=== PATIENT | male | born 1945 | race Caucasian/White ===

== ENCOUNTER 2021-12-12 16:09 | Inpatient (IN) | payer BC, MEDICARE ==
[~2021-12-12] VITALS: Ht 180.3 cm; Wt 68.1 kg
[2021-12-12] MEDS ORDERED: guaiFENesin/CODEINE (ROBITUSSIN AC) 10ML UDC PO PRN (21:45)
[2021-12-12] MEDS ORDERED: ACETAMINOPHEN 325 MG TABLET PO PRN (21:45)
[2021-12-12] MEDS ORDERED: ALPRAZolam 0.25 MG (XANAX) TAB PO PRN (21:45)
[2021-12-12] MEDS ORDERED: LOPERAMIDE 2 MG (IMODIUM) TABLET PO PRN (21:45)
[2021-12-12] MEDS ORDERED: diphenhydrAMINE 25 MG TAB (BENADRYL) PO PRN (21:45)
[2021-12-12] MEDS ORDERED: BISACODYL 10 MG SUPP (DULCOLAX) PR PRN (21:45)
[2021-12-12] MEDS ORDERED: DOCUSATE SODIUM 100 MG (COLACE) CAP PO PRN (21:45)
[2021-12-12] MEDS ORDERED: FLEET ENEMA ADULT 1 EA BTL PR PRN (21:45)
[2021-12-12] MEDS ORDERED: LACTULOSE SYRUP 10GM/15ML (ENULOSE) 30ML UDC PO PRN (21:45)
[2021-12-12] MEDS ORDERED: CALCIUM CARBONATE 500 MG (TUMS) TAB.CHEW PO PRN (21:45)
[2021-12-12] MEDS ORDERED: ONDANSETRON 4 MG (ZOFRAN) ORAL DISSOLVE TAB PO PRN (21:45)
[2021-12-12] MEDS ORDERED: MELATONIN 3 MG TABLET PO PRN (21:45)
[2021-12-13] MEDS ORDERED: polyethylene glycoL POWDER 17 GM (MIRALAX) PACK PO SCH (09:00)
[2021-12-13] MEDS ORDERED: DOCUSATE SODIUM 100 MG (COLACE) CAP PO SCH (09:00)
[2021-12-13] MEDS ORDERED: SENNA W/DOCUSATE (SENOKOT S) TABLET PO SCH (09:00)
[2021-12-18] MEDS ORDERED: POLY17PO6 PO (10:23)
[2021-12-18] MEDS ORDERED: DOCU100C37 PEG (10:23)
[2021-12-18] MEDS ORDERED: ACET650T8 PO (10:23)
[2021-12-18] MEDS ORDERED: SENOKOT PEG (10:23)
[2021-12-18] MEDS ORDERED: ONDA-105 PO (10:23)
[2021-12-18] MEDS ORDERED: ACET650S15 RC (10:23)
[2021-12-18] MEDS ORDERED: NF-NACL1GT PEG (10:23)
[2021-12-18] MEDS ORDERED: LIPA1CAP PO ×2 (10:23)
[2021-12-18] MEDS ORDERED: DOCU50LI26 PO (12:13)
[2021-12-18] MEDS ORDERED: PROTONIX PEG (12:15)
[2021-12-18] MEDS ORDERED: POTA20PA28 PO (12:38)
[2021-12-18] MEDS ORDERED: BICARB FEEDING (12:38)
[2021-12-18] MEDS ORDERED: PANCREAZE FEEDING (12:38)
--- NOTE | 2021-12-18 15:52 | PM&R Post Admission Assessment ---
PM&R HP Date of Visit: Dec 18, 2021 Time of Visit: 16:00 History of Present Illness Chief complaint: Debility History of present illness: This is a 76-year-old male clinic patient of [place] Dr. Gomez who presents to inpatient rehab for further strengthening and management of PEG tube feedings in order to increase nutrition and strength to safely go home to live independently. 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 He remains with flat affect but motivated to strengthen. 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 He does his own bolus feeds and reports the pain is periodic. CC: Debility HPI: 76yo Male is being admitted to inpatient rehab services with a diagnosis of debility. The patient comes to us from [facility] where he was initially admitted due to inability to swallow. Further workup revealed that the patient has poorly differentiated esophageal cancer that has metastasized to liver, as well as lymph nodes in the mediastinum, retroperitoneum, and upper mesentery. The patient underwent surgery to get a stent placed in the esophagus, despite the stent placement he still experienced dysphagia to liquids and solids. He then underwent placement of a PEG tube to allow for proper nutrition. When I first spoke to him he was working with rehab in the gym. PMH: Hyperlipidemia Metastatic Esophageal cancer PSH: Multiple EGD GI surgery-PEG tube placement Port for chemotherapy ALL: NKDA MEDS: Senokot syrup 10ml PEG Daily Miralax 17gm daily PO Protonix 40mg BID PEG Colace 100mg BID PO NaCl tablet 2gm QID PO Zofran 4mg Q6H PRN PO Pancreaze 1 each PRN KCl 40meq UD PRN PO Tylenol 650mg Q6H PRN PO Tylenol 650mg Q6H PRN RC SH: Never smoked No alcohol No recreational drugs His son lives with him FH: Brother has throat cancer ROS: Lost 30lbs in last 4-6 weeks, has had abdominal discomfort from dry retching OBJECTIVE CVS: Tachycardic, Normal rhythm. Pulmonary: Clear to auscultation bilaterally FREDERICK BEAN Dec 18, 2021 16:30 Past Wgqclyc-Qvlnfl-Ydewko Hx Past Med/Social Hx: Reviewed Nursing Past Med/Soc Hx, Reviewed and Corrections made Patient Social History Marrital Status: single Employed/Student: retired Alcohol Use: Denies Use Smoking Status: Former Smoker Past Medical History Cardiac: High Cholesterol Cancer: Esophageal PM&R Allergy/Meds/Data Review Allergies Coded Allergies: No Allergy Information Available (Unverified , 12/12/21) Home Medications Scheduled Docusate Sodium (Docu Liquid), 10 ML PO BID, (Reported) Polyethylene Glycol 3350 (Miralax), 17 GM PO DAILY, (Reported) Sodium Chloride (Sodium Chloride), 2 GM PEG QID, (Reported) [Protonix Suspension], 40 MG PEG BID, (Reported) [Senokot Syrup], 10 ML PEG DAILY, (Reported) Scheduled PRN Acetaminophen (Acetaminophen), 650 MG RC Q6H PRN for PAIN-MILD (1-4), (Reported) Acetaminophen (Arthritis Pain), 650 MG PO Q6H PRN for PAIN-MILD (1-4), (Repor krystle) Ondansetron HCl (Ondansetron HCl), 4 MG PO Q6H PRN for NAUSEA/VOMITING-1ST LINE, (Reported) Potassium Chloride (Potassium Chloride), 40 MEQ PO UD PRN for PER PROTOCOL, (Reported) [Asgygqevq31/Bicarb], 1 EACH FEEDING PRN PRN for TUBE FEED CLOG, (Reported) Discontinued Medications Docusate Sodium (Docusate Sodium), 100 MG PEG BID, (Reported) Discontinued Reason: Prescription changed Current Medications Current Medications Reviewed Review of Systems Constitutional: see HPI, dizziness, malaise, weakness, weight loss EENTM: no symptoms reported Respiratory: dyspnea on exertion Cardiovascular: no symptoms reported Gastrointestinal: abdominal pain, loss of appetite, nausea, vomiting Genitourinary: no symptoms reported Musculoskeletal: no symptoms reported Skin: no symptoms reported Psychiatric/Neurological: Anxiety All Other Systems Reviewed Negative Unless Noted: Yes Physical Exam Physical Exam Vital Signs Capillary Refill : Height, Weight, BMI Height: '" Weight: lbs. oz. kg; BMI Method: General Appearance: No Apparent Distress, WD/WN, Chronically ill, Thin Eyes: Bilateral Eye Normal Inspection, Bilateral Eye PERRL HEENT: PERRL/EOMI, Normal ENT Inspection, Pharynx Normal Neck: Full Range of Motion, Normal Inspection, Non Tender, Supple, Carotid Bruit Respiratory: Chest Non Tender, Lungs Clear, Normal Breath Sounds, No Accessory Muscle Use, No Respiratory Distress Cardiovascular: Regular Rate, Rhythm, No Edema, No Gallop, No JVD, No Murmur, Normal Peripheral Pulses Gastrointestinal: Normal Bowel Sounds, No Organomegaly, No Pulsatile Mass, Non Tender, Soft, Other (PEG tube in place) Back: Normal Inspection, No CVA Tenderness, No Vertebral Tenderness Extremity: Normal Capillary Refill, Normal Inspection, Normal Range of Motion, Non Tender, No Calf Tenderness, No Pedal Edema Neurologic/Psychiatric: Alert, Oriented x3, No Motor/Sensory Deficits, rfid systems architect II- XII Norm as Tested, Depressed Affect, Motor Weakness (Generalized) Skin: Normal Color, Warm/Dry Lymphatic: No Adenopathy PM&R Medical Assessment & Plan REHAB/MEDICAL ASSESSMENT AND PLAN: REHAB IMPAIRMENT GROUP: Debility from esophageal cancer with metastasis ETIOLOGIC DIAGNOSIS: Debility from esophageal cancer with metastasis The comorbidities that impact the patients function and/or functional outcome by: Cancer diagnosis, malnutrition, PEG tube feeding, dysphagia REHAB PLAN: The patient is being admitted to our comprehensive inpatient rehabilitation facility and can tolerate the intensity of service consisting of at least: 180 minutes of therapy a day, 5 out of 7 days a week Rehab treatment will consist of: PT and OT will focus on increasing strength with ambulation with assistive devices in order to return back to independent living to decrease care burden for family The patient/family has a good understanding of our discharge process and will benefit from an interdisciplinary inpatient rehabilitation program. The patient has potential to make improvement and is in need of at least two of the following multidisciplinary therapies including but not limited to physical, occupational, speech, and prosthetics and orthotics. Additionally the patient will need services from respiratory, nutritional services, wound care, psychology, etc. (Customize this to each patient). Given the patients complex condition and risk of further medical complications, rehabilitation services cannot be safely or effectively provided at a lower level of care such as a halfway facility. BARRIERS TO DISCHARGE: Cancer diagnosis ESTIMATED LOS: 7 days DISPOSITION: Home RELEVANT CHANGES SINCE PREADMISSION SCREENING: I have compared the patients medical and functional status at the time of the preadmission screening and there are: no changes PROGNOSIS: Poor REHABILITATION GOALS: 1. PT and OT will focus on increasing strength with ambulation with assistive devices in order to return back to independent living to decrease care burden for family All the above goals were reviewed with the patient and he/she is in agreement. By signing this document, I acknowledge that I have personally performed a full physical examination on this patient within 24 hours of admission to this inpatient rehabilitation facility and have determined the patient to be able to tolerate the above course of treatment at an intensive level for a reasonable period of time. I will be completing a detailed individualized Plan of Care for this patient by day #4 of the patients stay based upon the Preadmission Screen, the Post-Admission Evaluation, and the therapy evaluations. Admission Dx/Comorbidities: (1) Debility ICD Codes: R53.81 - Other malaise Assessment/Plan Assessment and Plan Assess & Plan/Chief Complaint Assessment: Debility Profound weight loss Esophageal cancer with widespread metastasis Dysphagia Chronic pain Hyperlipidemia Hyponatremia placed on fluid restriction Plan: Fluid restriction Supportive care Tube feedings PT and OT CALVIN OVERTON DO Dec 18, 2021 15:51
[2021-12-18] MEDS ORDERED: BICARB FEEDING PRN (16:00)
[2021-12-18] MEDS ORDERED: ACETAMINOPHEN 650 MG SUPP (TYLENOL) RC PRN (16:00)
[2021-12-18] MEDS ORDERED: [UNRECOGNIZED DRUG - OTHER] FEEDING PRN (16:00)
[2021-12-18] MEDS ORDERED: NON-FORMULARY MEDICATION 1 EA EA (Ondansetron HCl 4 MG) PO PRN (16:00)
[2021-12-18] MEDS ORDERED: NON-FORMULARY MEDICATION 1 EA EA (Potassium Chloride 40 MEQ) PO PRN (16:00)
[2021-12-18] MEDS ORDERED: ONDANSETRON 4 MG (ZOFRAN) ORAL DISSOLVE TAB PO PRN (16:30)
--- NOTE | 2021-12-18 16:30 | Progress Note ---
FREDERICK BEAN 12/18/21 1630: Progress Note SUBJECTIVE CC: Debility HPI: 76yo Male is being admitted to inpatient rehab services with a diagnosis of debility. The patient comes to us from [facility] where he was initially admitted due to inability to swallow. Further workup revealed that the patient has poorly differentiated esophageal cancer that has metastasized to liver, as well as lymph nodes in the mediastinum, retroperitoneum, and upper mesentery. The patient underwent surgery to get a stent placed in the esophagus, despite the stent placement he still experienced dysphagia to liquids and solids. He then underwent placement of a PEG tube to allow for proper nutrition. When I first spoke to him he was working with rehab in the gym. PMH: Hyperlipidemia Metastatic Esophageal cancer PSH: Multiple EGD GI surgery-PEG tube placement Port for chemotherapy ALL: NKDA MEDS: Senokot syrup 10ml PEG Daily Miralax 17gm daily PO Protonix 40mg BID PEG Colace 100mg BID PO NaCl tablet 2gm QID PO Zofran 4mg Q6H PRN PO Pancreaze 1 each PRN KCl 40meq UD PRN PO Tylenol 650mg Q6H PRN PO Tylenol 650mg Q6H PRN RC SH: Never smoked No alcohol No recreational drugs His son lives with him FH: Brother has throat cancer ROS: Lost 30lbs in last 4-6 weeks, has had abdominal discomfort from dry retching OBJECTIVE CVS: Tachycardic, Normal rhythm. Pulmonary: Clear to auscultation bilaterally CHEYENNE OVERTON DO 12/18/212020: Supervisory-Addendum Brief Verification & Attestation Participated in pt care: history, MDM, physical Personally performed: exam, history, MDM, supervision of care Care discussed with: Medical Student Procedures: n/a Results interpretation: Verified all documentation Verification and Attestation of Medical Student E/M Service A medical student performed and documented this service in my presence. I reviewed and verified all information documented by the medical student and made modifications to such information, when appropriate. I personally performed the physical exam and medical decision making. Cheyenne Overton, Dec 18, 2021,20:21 FREDERICK BEAN Dec 18, 2021 16:30 CHEYENNE OVERTON DO Dec 18, 2021 20:21
[2021-12-18 16:36] VITALS: BP 116/71
--- NOTE | 2021-12-18 16:40 | Occupational Therapy Eval ---
OT Evaluation-General/PLF Medical Diagnosis Admission Date Dec 18, 2021 at 15:04 Medical Diagnosis: Debility Onset Date: Dec 06, 2021 Therapy Diagnosis Therapy Diagnosis: reduced balance, endurance, adl status Precautions Precautions/Isolations: Fall Prevention, Standard Precautions Referral Physician: Bambi Tena Reason: Evaluation/Treatment Medical History Additional Medical History recent esophageal cancer diagnosis Current History Pt initially admitted to [place] on 12/06 with c/o difficulty swallowing liquids and solids, worsening weakness, and weight loss. EGD revealed mass extending from GE junction. PEG tube and port-a-cath placed for palliative chemo Per patient, he lives with his son in a single story home. He was indep with adls and his son completes all iadls. 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 Reviewed History: Yes Social History Home: Single Level Current Living Status: Children ADL-Prior Level of Function SCALE: Activities may be completed with or without assistive devices. 0-Tasqbxxqgj-uwkcexr completes the activity by him/herself with no assistance from a helper. 5-Set-up or Clean-up Assistance-helper sets up or cleans up; patient completes activity. [place] assists only prior to or following the activity. 4-Supervision or Touching Assistance-helper provides verbal cues and/or touching/steadying and/or contact guard assistance as patient completes activity. Assistance may be provided throughout the activity or intermittently. 3-Partial/Moderate Assistance-helper does LESS THAN HALF the effort. [place] lifts, holds or supports trunk or limbs, but provides less than half the effort. 2-Substantial/Maximal Assistance-helper does MORE THAN HALF the effort. [place] lifts or holds trunk or limbs and provides more than half the effort. 7-Tvtctqksm-zuvqce does ALL the effort. Patient does none of the effort to complete the activity. Or, the assistance of 2 or more helpers is required for the patient to complete the activity. If activity was not attempted, code reason: 7-Patient Refused. 9-Not Applicable-not attempted and the patient did not perform the activity before the current illness, exacerbation or injury. 10-Not Attempted due to Environmental Limitations-(lack of equipment, weather restraints, etc.). 88-Not Attempted due to Medical Conditions or Safety Concerns. Self Care: Independent Functional Cognition: Independent DME/Equipment: Tub Drive Self: Yes OT Current Status Subjective Pt with very short responses. Reports pain in head but does not give numerical value. Co-treat with PT secondary to weakness, fatigue from travel, poor endurance/activity tolerance, and need of 2 skilled clinicians to progress indep and safety with adls and functional mobility. Appearance Pt left sitting on side of bed, RENTAL CAR DELIVERER present. Mental Status/Objective Patient Orientation: Person, Place, Situation Attachments: IV (port), PEG Tube Current Glasses/Contacts: Yes Hearing Aids: Yes (does not wear) Dentures/Partials: Yes (does not have at hospital) Hand Dominance: Right Upper Extremity ROM WFL Upper Extremity Strength 3+/5 grossly ADL-Treatment Eating (QC): 88 (PEG tube) Oral Hygiene (QC): 7 (Pt declines brushing gums, dentures not currently at hospital. Anticipate no physical assistance will be needed) Shower/Bathe Self (QC): 7 Upper Body Dressing (QC): 7 Lower Body Dressing (QC): 3 On/Off Footwear (QC): 3 Toileting Hygiene (QC): 4 Pt already dressed for the day but agreeable to demonstrate LB dressing for assessment purposes. Min a needed to thread L foot into pant leg and don L sock over toes secondary to LE weakness and limited flexibility. He stood with CGA to manage clothing over hips. He was able to thread belt loop and buckle with steadying assist only. Other Treatments With walker, Pt ambulated several bouts, ~175 feet each before needing to sit and rest. Very slow but steady gait. Initially CGA for safety, improves to SBA. Pt reports that he walks much better with his shoes on. He stood to complete nuts/bolts activity with focus on improving standing tolerance, LE strength, balance, and reducing UE support needed for functional tasks. Again, pt slow to complete but no LOB or unsteadiness observed throughout activity. Min cues for upright posture with prolonged standing. Education OT Patient Education: Correct positioning, Energy conservation, Modified ADL techniques, Purpose of tx/functional activities, Rehab process, Safety issues, Transfer techniques Teaching Recipient: Patient Teaching Methods: Demonstration, Discussion Response to Teaching: Verbalize Understanding, Return Demonstration, Reinforcement Needed OT Short Term Goals Short Term Goals Time Frame: Dec 25, 2021 Eatin Oral hygiene: 4 Toileting hygiene: 5 Shower/bathe self: 3 Upper body dressin Lower body dressin Putting on/taking off footwear: 4 OT Director Software Development Goals Longterm Goals Time Frame: Dec 31, 2021 Eating (QC): 88 Oral Hygiene (QC): 5 Toileting Hygiene (QC): 6 Shower/Bathe Self (QC): 5 Upper Body Dressing (QC): 6 Lower Body Dressing (QC): 6 On/Off Footwear (QC): 6 1=Demonstrate adherence to instructed precautions during ADL tasks. 2=Patient will verbalize/demonstrate understanding of assistive devices/modifications for ADL. 3=Patient will improve strength/tolerance for activity to enable patient to perform ADL's. OT Education/Plan Problem List/Assessment Assessment: Decreased Activ Tolerance, Decreased UE Strength, Impaired Funct Balance, Impaired Self-Care Skills Discharge Recommendations Plan/Recommendations: Continue POC Therapy Discharge Recommendati: Post Acute OT (home health OT) Treatment Plan/Plan of Care Treatment,Training & Education: Yes Patient would benefit from OT for education, treatment and training to promote independence in ADL's, mobility, safety and/or upper extremity function for ADL's. Plan of Care: ADL Retraining, Concurrent Therapy, Functional Mobility, Group Exercise/Act as Ind, UE Funct Exercise/Act Treatment Duration: Dec 31, 2021 Frequency: At least 5 of 7 days/Wk (IRF) Estimated Hrs Per Day: 1.5 hours per day (75-90 min/day ) Agreement: Yes Rehab Potential: Good Time/GCodes Start Time: 15:10 Stop Time: 16:40 Total Time Billed (hr/min): 90 Billed Treatment Time 1 visit EVL (10 min) ADL x2 (30 min) FA x3 (50 min) Elina Campo OT Dec 18, 2021 16:40
--- NOTE | 2021-12-18 16:42 | Physical Therapy Evaluation ---
GORAN DE ANDA PT 12/18/21 1642: PT Evaluation-General Medical Diagnosis Admission Date Dec 18, 2021 at 15:04 Medical Diagnosis: debility Onset Date: Dec 06, 2021 Therapy Diagnosis Therapy Diagnosis: impaired mobility Referral Physician: Cheyenne Lacy DO Reason for Referral: Evaluation/Treatment Medical History Additional Medical History Hyperlipidemia Metastatic Esophageal cancer Reviewed History: Yes Social History Home: Single Level Current Living Status: Children (son lives with him) Entry Into Home: Stairs With Railing PT Steps Into Home: 4 Prior Prior Level of Function SCALE: Activities may be completed with or without assistive devices. 3-Shsmovyzur-fiocdvk completes the activity by him/herself with no assistance from a helper. 5-Set-up or Clean-up Assistance-helper sets up or cleans up; patient completes activity. [place] assists only prior to or following the activity. 4-Supervision or Touching Assistance-helper provides verbal cues and/or touching/steadying and/or contact guard assistance as patient completes activity. Assistance may be provided throughout the activity or intermittently. 3-Partial/Moderate Assistance-helper does LESS THAN HALF the effort. [place] lifts, holds or supports trunk or limbs, but provides less than half the effort. 2-Substantial/Maximal Assistance-helper does MORE THAN HALF the effort. [place] lifts or holds trunk or limbs and provides more than half the effort. 4-Kvljlgkhm-zsgehc does ALL the effort. Patient does none of the effort to complete the activity. Or, the assistance of 2 or more helpers is required for the patient to complete the activity. If activity was not attempted, code reason: 7-Patient Refused. 9-Not Applicable-not attempted and the patient did not perform the activity before the current illness, exacerbation or injury. 10-Not Attempted due to Environmental Limitations-(lack of equipment, weather restraints, etc.). 88-Not Attempted due to Medical Conditions or Safety Concerns. Bed Mobility: 6 Transfers (B,C,W/C): 6 Gait: 6 Stairs: 6 Indoor Mobility (Ambulation): Independent Stairs: Independent PT Evaluation-Current Subjective Patient in WC pre tx, agrees to PT, has unrated pain at feeding tube site. Will be co-treating with OT due to poor patient mobility, strength, endurance, severe debility, low activity tolerance, coordinate UE and LE with activity, safety and reduce risk of falls. 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 Sensory Vision: Wears Glasses Hearing: Impaired Sensation Right Lower Extremit: Intact Sensation Left Lower Extremity: Intact Transfers Roll Left & Right (QC): 6 Sit to Lying (QC): 6 Lying to Sitting/Side of Bed(Q: 6 Sit to Stand (QC): 4 Chair/Okw-hl-Kjjkt Xfer(QC): 4 Toilet Transfer (QC): 4 Car Transfer (QC): 4 Patient performs rolling and supine <-> sit with independence, sit <-> stand and transfers with CGA, car transfer CGA. Patient needs cues for hand placement and safety. Gait Does the Patient Walk?: Yes Mode of Locomotion: Walk Anticipated Mode of Locomotion: Walk Walk 10 feet (QC): 4 Walk 50 ft with 2 Turns(QC): 4 Walk 150 ft (QC): 4 Walking 10ft/uneven surface-QC: 4 Distance: 150'x2, 120'x3 Gait Assistive Device: FWW Comments/Gait Description Patient can ambulate 150' with a rolling walker with CGA (including 50' with at least 2 turns of 90 degrees and 10' over an uneven surface), patient ambulates very slowly, decreased foot clearance and step through, minor foot drop on the left side Wheelchair Training Wheel 50 ft with 2 turns (QC): 9 Wheel 150 ft (QC): 9 Stairs #of Steps: 4 1 Step (curb) (QC): 4 4 Steps (QC): 4 12 Steps (QC): 88 Patient can go up and down 4 steps using 2 handrails with CGA, cues for safety Balance Sitting Static: Normal Sitting Dynamic: Normal Standing Static: Fair Standing Dynamic: Normal Picking up an Object (QC): 4 (CGA without using a sugar reprocess operator head) Special Test Comments Tinetti Treatment Patient also performed a standing endurance exercise while performing UE activity and he had to ambulate back to his room to the restroom to have a BM. PT performed bed mobility and transfers, ambulation, stair training, standing activity, toileting, OT performed toileting, UE activity, UE positioning and safety during activity. Assessment/Needs Patient in bed post tx with nurse call, phone, tray, all needs met. Patient has impaired mobility, strength, endurance, balance. He needs frequent rest breaks due to fatigue. Rehab Potential: Fair PT Short Term Goals Short Term Goals Time Frame: Dec 25, 2021 Roll Left & Right: 6 Sit to lyin Lying to sitting on side of be: 6 Sit to stand: 4 (SBA) Chair/gfn-pt-ajaal transfer: 4 (SBA) Walk 10 feet: 4 (SBA) Walk 50 feet with two turns: 4 (SBA) Walk 150 feet: 4 (SBA) PT Halfway Goals Type Photography Supervisor Goals PT Halfway Goals Time Frame: Jan 08, 2022 Roll Left & Right (QC): 6 Sit to Lying (QC): 6 Lying-Sitting on Side/Bed(QC): 6 Sit to Stand (QC): 6 Chair/Qce-jk-Zyklu Xfer(QC): 6 Toilet Transfer (QC): 6 Car Transfer (QC): 6 Does the Patient Walk: Yes Walk 10 feet (QC): 6 Walk 50ft with 2 Turns (QC): 6 Walk 150 ft (QC): 6 Walking 10ft on Uneven Surface: 6 1 Step (curb) (QC): 6 4 Steps (QC): 6 12 Steps (QC): 6 Picking up an Object (QC): 6 Wheel 50 feet with 2 turns (QC: 9 Wheel 150 feet: 9 PT Plan Problem List Problem List: Activity Tolerance, Functional Strength, Safety, Balance, Gait, Transfer, ROM Treatment/Plan Treatment Plan: Continue Plan of Care Treatment Plan: Education, Functional Activity Melo, Functional Strength, Group Therapy, Gait, Safety, Therapeutic Exercise, Transfers Treatment Duration: Jan 08, 2022 Frequency: At least 5 of 7 days/Wk (IRF) Estimated Hrs Per Day: 1.5 hours per day Patient and/or Family Agrees t: Yes Safety Risks/Education Patient Education: Gait Training, Transfer Techniques, Steps, Correct Positioning, Safety Issues Teaching Recipient: Patient Teaching Methods: Demonstration, Discussion Response to Teaching: Reinforcement Needed Discharge Recommendations Plan Patient will perform bed mobility and transfer training, balance and endurance training, functional strengthening, stair training, gait training, and education, to improve functional mobility and independence at home. Therapy Discharge Recommendati: Scheduled Assistance, Home & Family, Post Acute PT Time/GCodes Time In: 1500 Time Out: 1640 Total Billed Treatment Time: 90 Total Billed Treatment 1 visit EVM 10' FA 80' PT eval from [id number], OT eval from [id number], co-treat from [id number] CHEYENNE LACY DO 12/18/212051: GORAN DE ANAD PT Dec 18, 2021 16:42 CHEYENNE LACY DO Dec 18, 2021 20:52
[2021-12-18] MEDS ORDERED: LIPASE/AMYLASE/PROTEASE (PANCRELIPASE) 5,000 UNITS CAP PO PRN (16:45)
[2021-12-18] MEDS: SODIUM CHLORIDE 1 GM TABLET PO SCH ×2 (17:00→20:12)
[2021-12-18] MEDS ORDERED: LIPASE/AMYLASE/PROTEASE (PANCRELIPASE) 5,000 UNITS CAP PEG PRN (17:00)
[2021-12-18] MEDS ORDERED: SODIUM BICARBONATE 650 MG TABLET PEG PRN (17:00)
[2021-12-18] MEDS: DOCUSATE SODIUM 10 MG/ML 10 ML UDC (COLACE) PO SCH (20:12)
[2021-12-18] MEDS: PANTOPRAZOLE 2 MG/ML LIQUID 200 ML (PROTONIX) PEG SCH ×3 (20:12)
[2021-12-18 20:13] VITALS: BP 130/77
[2021-12-18] MEDS ORDERED: PROTONIX 40 MG PEG SCH (21:00)
[2021-12-19] MEDS: ACETAMINOPHEN ER 650 MG (TYLENOL ARTHRITIS) PO PRN ×2 (02:23→22:26)
--- NOTE | 2021-12-19 05:59 | PM&R Progress Note ---
Subjective HPI/CC On Admission Date Seen by Provider: Dec 19, 2021 Time Seen by Provider: 11:30 Subjective/Events-last exam 12/19/2021: Patient doing better except for the pain Starting fentanyl patch because extended release pills can't go through PEG tube Emesis at times which is an issue that occurred at [facility] Walking around pretty well Supportive care will continue Review of Systems General: Fatigue, Malaise Objective Exam Vital Signs Vital Signs Date Time Temp Pulse Resp B/P (MAP) Pulse Ox O2 Delivery O2 Flow Rate FiO2 12/19/21 21:00 Room Air 12/19/21 20:43 36.8 81 16 138/79 (98) 96 Capillary Refill : General Appearance: No Apparent Distress, WD/WN, Chronically ill, Thin HEENT: PERRL/EOMI, Normal ENT Inspection, Pharynx Normal Neck: Full Range of Motion, Normal Inspection, Non Tender, Supple, Carotid Bruit Respiratory: Chest Non Tender, Lungs Clear, Normal Breath Sounds, No Accessory Muscle Use, No Respiratory Distress Cardiovascular: Regular Rate, Rhythm, No Edema, No Gallop, No JVD, No Murmur, Normal Peripheral Pulses Gastrointestinal: Normal Bowel Sounds, No Organomegaly, No Pulsatile Mass, Non Tender, Soft, Other (PEG tube in place) Back: Normal Inspection, No CVA Tenderness, No Vertebral Tenderness Extremity: Normal Capillary Refill, Normal Inspection, Normal Range of Motion, Non Tender, No Calf Tenderness, No Pedal Edema Neurologic/Psychiatric: Alert, Oriented x3, No Motor/Sensory Deficits, chief embalmer II- XII Norm as Tested, Depressed Affect, Motor Weakness (Generalized) Skin: Normal Color, Warm/Dry Lymphatic: No Adenopathy Results/Procedures Lab Laboratory Tests 12/19/21 06:20 Patient resulted labs reviewed. FIM Transfers Therapy Code Descriptions/Definitions Functional [place] Measure: 0=Not Assessed/NA 4=Minimal Assistance 1=Total Assistance 5=Supervision or Setup 2=Maximal Assistance 6=Modified [place] 3=Moderate Assistance 7=Complete IndependenceSCALE: Activities may be completed with or without assistive devices. 2-Xyjydojmoz-iimpshn completes the activity by him/herself with no assistance from a helper. 5-Set-up or Clean-up Assistance-helper sets up or cleans up; patient completes activity. [place] assists only prior to or following the activity. 4-Supervision or Touching Assistance-helper provides verbal cues and/or touchin g/steadying and/or contact guard assistance as patient completes activity. Assistance may be provided throughout the activity or intermittently. 3-Partial/Moderate Assistance-helper does LESS THAN HALF the effort. Wilson lifts, holds or supports trunk or limbs, but provides less than half the effort. 2-Substantial/Maximal Assistance-helper does MORE THAN HALF the effort. [place] lifts or holds trunk or limbs and provides more than half the effort. 5-Ewqftpwfq-fuhtzt does ALL the effort. Patient does none of the effort to complete the activity. Or, the assistance of 2 or more helpers is required for the patient to complete the activity. If activity was not attempted, code reason: 7-Patient Refused. 9-Not Applicable-not attempted and the patient did not perform the activity before the current illness, exacerbation or injury. 10-Not Attempted due to Environmental Limitations-(lack of equipment, weather restraints, etc.). 88-Not Attempted due to Medical Conditions or Safety Concerns. Roll Left to Right (QC): 6 Sit to Lying (QC): 6 Sit to Stand (QC): 4 Chair/Qhw-zd-Fbhtw Xfer(QC): 4 Car Transfer (QC): 4 Gait Training Does the Patient Walk?: Yes Walk 10 feet (QC): 4 Walk 50 ft with 2 Turns(QC): 4 Walk 150 ft (QC): 4 Walking 10ft/uneven surface-QC: 4 Gait Assistive Device: FWW Wheelchair Training Wheel 50 ft with 2 turns (QC): 9 Wheel 150 ft (QC): 9 Stair Training #of Steps: 4 1 Step (curb) (QC): 4 4 Steps (QC): 4 12 Steps (QC): 88 Balance Picking up an Object (QC): 4 (CGA without using a electrical maintenance supervisor) ADL-Treatment Eating (QC): 88 (PEG tube) Oral Hygiene (QC): 7 (Pt declines brushing gums, dentures not currently at hospital. Anticipate no physical assistance will be needed) Shower/Bathe Self (QC): 7 Upper Body Dressing (QC): 7 Lower Body Dressing (QC): 3 On/Off Footwear (QC): 3 Toileting Hygiene (QC): 4 Assessment/Plan Assessment and Plan Assess & Plan/Chief Complaint Assessment: Debility Profound weight loss Esophageal cancer with widespread metastasis Dysphagia Chronic pain Hyperlipidemia Hyponatremia placed on fluid restriction Plan: Fluid restriction Supportive care Tube feedings PT and OT 12/19/2021: Add fentanyl patch Supportive care (1) Debility CALVIN OVERTON DO Dec 19, 2021 05:59
--- NOTE | 2021-12-19 05:59 | Individualized Plan of Care ---
Individualized Plan of Care Rehab Nursing IPOC Order Admission Date Dec 18, 2021 at 15:04 Current Orders Orders Admission Order(Inpt,Obs,Sdc) (12/12/21 21:42) Vital Signs: Per Unit Policy ( ,, (12/12/21 21:42) Doyle Mg (12/12/21 21:42) Sequential Compression Device (12/12/21 21:42) It Risk And Assurance Senior Manager-Inpt Rehab Con (12/12/21 21:42) Rehab Nursing Orders-Ipoc (12/12/21 21:42) Physical Therapy Rehab Orders (12/12/21 21:42) Occupational Therapy Rehab Ord (12/12/21 21:42) Speech Therapy Rehab Orders (12/12/21 21:42) Precautions (Aru) (12/12/21 21:42) Weekly Weight WEEK (12/12/21 21:42) Rehab-Intensity Of Therapy (12/12/21 21:42) Initiate Admission Nursing Pro .admission (12/12/21 21:42) Code/Resuscitation (12/12/21 21:42) Initiate Admission Nursing Pro .admission (12/12/21 21:42) Cbc With Automated Diff (12/19/21 06:00) Comprehensive Metabolic Panel (12/19/21 06:00) Fluid Restriction (12/18/21 06:20) Admission Arrival Bed Request (12/18/21 15:03) Acetaminophen Suppository (Tylenol Suppo (12/18/21 16:00) Acetaminophen Arthritis (Tylenol Arthrit (12/18/21 16:00) Docusate Sodium Oral Solution (Colace Or (12/18/21 21:00) Polyethylene Glycol Powder Pkt (Miralax (12/19/21 09:00) Sodium Chloride Tablet (Sodium Chloride (12/18/21 17:00) (Nf) Ondansetron Hcl (12/18/21 16:00) (Nf) Potassium Chloride (12/18/21 16:00) (Nf) [Ianglwoze55/Bicarb] (12/18/21 16:00) (Nf) [Protonix Suspension] (12/18/21 21:00) (Nf) [Senokot Syrup] (12/19/21 09:00) Ondansetron Oral Dissolve Tab (Zofran (12/18/21 16:30) Water, Sterile For Irrigation (Sterile W (12/18/21 21:00) Lipase/Amylase/Protease Caps (Pancrelipa (12/18/21 16:45) Lipase/Amylase/Protease Caps (Pancrelipa (12/18/21 17:00) Sodium Bicarbonate Tablet (Sodium Bicarb (12/18/21 17:00) Potassium Chloride (Tablet) (K Dur Table (12/19/21 06:00) Lactulose Oral Solution (Enulose Oral So (12/19/21 09:00) Oxycodone Immediate Rel Tablet (Oxyir Ta (12/18/21 18:15) Tube Feeding (Diet) UD (12/18/21 20:24) Patient Visit (12/18/21 ) Pt Eval Moderate Complexity (12/18/21 ) Functional Activities, Ea 15 (12/18/21 ) Fentanyl Patch (Duragesic Patch) (12/19/21 10:30) Patient Visit (12/19/21 ) Speech Sound Lang Comp (12/19/21 ) Treat. Speech/Lang/Voice (12/19/21 ) Patch Removal (Patch Removal) (12/22/21 10:29) Patient Visit (12/19/21 ) Exercise Therap, Ea 15 Min (12/19/21 ) Functional Activities, Ea 15 (12/19/21 ) Patient Visit (12/19/21 ) Functional Activities, Ea 15 (12/19/21 ) Rehab Nursing Orders: Ongoing Assess. of Cognitive Status, Ongoing Assess. of Function Status, Bladder Management, Bladder Scan, Bladder Training, Bowel Management, Bowel Training, Disease Management & Educaiton, DVT Prophylaxis, Fall Prevention, Fluid/Electrolyte/Nutrition Mgmt, Infection Prevention, Medication Management & Education, Management of Risks & Complications, Management of Skin Intergrity, Nutrition Management, Pain Management, Patient/Family Support, Safety Management Intensity of Therapy to be met Patient to be seen: Min.3h per day/5 of 7d PT IPOC Problem List: Activity Tolerance, Functional Strength, Safety, Balance, Gait, Transfer, ROM Treatment Plan: Continue Plan of Care Education, Functional Activity Melo, Functional Strength, Group Therapy, Gait, Safety, Therapeutic Exercise, Transfers Treatment Duration: Jan 08, 2022 Frequency: At least 5 of 7 days/Wk (IRF) Estimated Hrs Per Day: 1.5 hours per day OT IPOC Problems: Decreased Activ Tolerance, Decreased UE Strength, Impaired Funct Balance, Impaired Self-Care Skills OT Treatment, Training and Edu: Yes Plan of Care: ADL Retraining, Concurrent Therapy, Functional Mobility, Group Exercise/Act as Ind, UE Funct Exercise/Act Treatment Duration: Dec 31, 2021 Frequency: At least 5 of 7 days/Wk (IRF) Estimated Hrs Per Day: 1.5 hours per day (75-90 min/day ) ST IPOC Speech Therapy Treatment Plan: Discontinue ST Treatment Duration: Dec 19, 2021 Frequency: Modified Program (IRF) Estimated Hrs Per Day: Other It Risk And Assurance Senior Manager/Case Mgmt It Risk And Assurance Senior Manager/Case Managemen: Discharge Planning Dietitian/Edger Liner Dietitian/Edger Liner to monitor nutritional status and make changes and/or recommendations as needed and work with speech pathology on dietary upgrades as the occur. Physician IPOC Medical Issues being managed closely and that require the 24 hour availability of a physician: Recent esophageal cancer diagnosis with placement and metastasis noted on CT scans compensation during hospital stay Medical Issues: Bowel/Bladder Function, DVT Prophylaxis, Falls Precautions, Fluid/Electrolyte/Nutrition Balance, Infection Protection, Pain Management, Swallowing Precautions Brief Synthesis of Preadmission Screen, Post-Admission Evaluation, and Therapy Evaluations: PT and OT will focus on regaining function with use of assistive devices in order to regain ambulatory strength and increase stamina and return independence with ADLs in order to go home Medical Prognosis: Fair Anticipated Length of Stay: 7 days CALVIN OVERTON DO Dec 19, 2021 05:59
[2021-12-19 06:34] LABS: BASOPHILS % (AUTO) 0 % (0-10); EOSINOPHILS # (AUTO) 0.1 10^3/uL (0.0-0.3); EOSINOPHILS % (AUTO) 1 % (0-10); HEMATOCRIT 29 % (40-54); HEMOGLOBIN 9.4 g/dL (13.3-17.7); LYMPHOCYTES # (AUTO) 1.4 10^3/uL (1.0-4.0); LYMPHOCYTES % (AUTO) 15 % (12-44); MEAN CORPUSCULAR HEMOGLOBIN 29 pg (25-34); MEAN CORPUSCULAR HGB CONC 33 g/dL (32-36); MEAN CORPUSCULAR VOLUME 87 fL (80-99); MEAN PLATELET VOLUME 8.6 fL (9.0-12.2); MONOCYTES # (AUTO) 0.6 10^3/uL (0.0-1.0); MONOCYTES % (AUTO) 7 % (0-12); NEUTROPHILS # (AUTO) 6.8 10^3/uL (1.8-7.8); NEUTROPHILS % (AUTO) 76 % (42-75); PLATELET COUNT 401 10^3/uL (130-400)
[2021-12-19 07:06] LABS: ALBUMIN 2.5 GM/DL (3.2-4.5)
[2021-12-19 07:07] LABS: POTASSIUM 4.1 MMOL/L (3.6-5.0)
[2021-12-19 07:08] LABS: CALCIUM 8.1 MG/DL (8.5-10.1)
[2021-12-19 07:09] LABS: TOTAL PROTEIN 5.5 GM/DL (6.4-8.2)
[2021-12-19 07:11] LABS: BILIRUBIN,TOTAL 0.4 MG/DL (0.1-1.0)
[2021-12-19 07:13] LABS: CREATININE SERUM 0.76 MG/DL (0.60-1.30)
[2021-12-19] MEDS: KCL 20 MEQ TAB (K-DUR) PO SCH (07:32)
[2021-12-19 07:41] VITALS: BP 127/69
--- NOTE | 2021-12-19 08:53 | Physical Therapy Daily Note ---
PT Daily Note-Current Subjective Patient in bed pre tx, agrees to PT with some encouragement, has no complaints of pain but states he doesn't feel well and has a basin next to him that he says he has been vomiting into. Initially patient tries to refuse saying "I don't think I can do therapy today. I shouldn't have to do therapy if I don't feel we ll". Appearance Patient in recliner post tx with nurse call, phone, tray, all needs met. Mental Status Patient Orientation: Person, Place, Situation Attachments: PEG Tube Transfers SCALE: Activities may be completed with or without assistive devices. 6-Njhoywopmu-csactvx completes the activity by him/herself with no assistance from a helper. 5-Set-up or Clean-up Assistance-helper sets up or cleans up; patient completes activity. [place] assists only prior to or following the activity. 4-Supervision or Touching Assistance-helper provides verbal cues and/or touching/steadying and/or contact guard assistance as patient completes activity. Assistance may be provided throughout the activity or intermittently. 3-Partial/Moderate Assistance-helper does LESS THAN HALF the effort. [place] lifts, holds or supports trunk or limbs, but provides less than half the effort. 2-Substantial/Maximal Assistance-helper does MORE THAN HALF the effort. [place] lifts or holds trunk or limbs and provides more than half the effort. 9-Srlxvromx-stmyqe does ALL the effort. Patient does none of the effort to complete the activity. Or, the assistance of 2 or more helpers is required for the patient to complete the activity. If activity was not attempted, code reason: 7-Patient Refused. 9-Not Applicable-not attempted and the patient did not perform the activity before the current illness, exacerbation or injury. 10-Not Attempted due to Environmental Limitations-(lack of equipment, weather restraints, etc.). 88-Not Attempted due to Medical Conditions or Safety Concerns. Roll Left & Right (QC): 6 Lying to Sitting/Side of Bed(Q: 3 Sit to Stand (QC): 4 Chair/Cvm-ya-Oxkuf Xfer(QC): 4 Therapist puts patient's shoes on and he transfers to using RW with CGA. Patient doesn't want to ambulate, says he feels dizzy. His BP is 125/63, HR 75 bpm, O2 97%. Patient needs cues for hand placement during sit <-> stand almost every time. Wheelchair Training Does the Pt Use a Wheelchair?: Yes Wheel 50 ft with 2 turns (QC): 4 Wheel 150 ft (QC): 4 Type of Wheelchair: Manual 150'x2, SBA, patient uses all 4 extremities to propel Exercises Seated Therapy Exercises: Ankle pumps, Long arc quads, Hip abd/add (with ball and RTB) NuStep Minutes: 15 NuStep Workload: 4 Treatments bed mobility and transfers, WC mobility, functional strengthening Assessment Current Status: Poor Progress poor motivation, patient isn't feeling well today PT Short Term Goals Short Term Goals Time Frame: Dec 25, 2021 Roll Left & Right: 6 Sit to lyin Lying to sitting on side of be: 6 Sit to stand: 4 (SBA) Chair/xws-pw-hrfvf transfer: 4 (SBA) Walk 10 feet: 4 (SBA) Walk 50 feet with two turns: 4 (SBA) Walk 150 feet: 4 (SBA) PT Nursing Home Goals Nursing Home Goals PT Nursing Home Goals Time Frame: Jan 08, 2022 Roll Left & Right (QC): 6 Sit to Lying (QC): 6 Lying-Sitting on Side/Bed(QC): 6 Sit to Stand (QC): 6 Chair/Jxo-cb-Ofzsz Xfer(QC): 6 Toilet Transfer (QC): 6 Car Transfer (QC): 6 Does the Patient Walk: Yes Walk 10 feet (QC): 6 Walk 50ft with 2 Turns (QC): 6 Walk 150 ft (QC): 6 Walking 10ft on Uneven Surface: 6 1 Step (curb) (QC): 6 4 Steps (QC): 6 12 Steps (QC): 6 Picking up an Object (QC): 6 Wheel 50 feet with 2 turns (QC: 9 Wheel 150 feet: 9 PT Plan Problem List Problem List: Activity Tolerance, Functional Strength, Safety, Balance, Gait, Transfer, Bed Mobility, ROM Treatment/Plan Treatment Plan: Continue Plan of Care Treatment Plan: Education, Functional Activity Melo, Functional Strength, Group Therapy, Gait, Safety, Therapeutic Exercise, Transfers Treatment Duration: Jan 08, 2022 Frequency: At least 5 of 7 days/Wk (IRF) Estimated Hrs Per Day: 1.5 hours per day Patient and/or Family Agrees t: Yes Safety Risks/Education Patient Education: Transfer Techniques, Correct Positioning, W/C Management, Safety Issues Teaching Recipient: Patient Teaching Methods: Demonstration, Discussion Response to Teaching: Reinforcement Needed Time/GCodes Time In: 0800 Time Out: 09 Total Billed Treatment Time: 60 Total Billed Treatment 1 visit EX 25' FA 35' GORAN DE ANDA PT Dec 19, 2021 08:53
[2021-12-19] MEDS ORDERED: SENNA PEG SCH (09:00)
[2021-12-19] MEDS: PANTOPRAZOLE 2 MG/ML LIQUID 200 ML (PROTONIX) PEG SCH ×6 (09:21→22:26)
[2021-12-19] MEDS: DOCUSATE SODIUM 10 MG/ML 10 ML UDC (COLACE) PO SCH ×2 (09:22→20:11)
[2021-12-19] MEDS: LACTULOSE SYRUP 10GM/15ML (ENULOSE) 30ML UDC PEG SCH (09:22)
[2021-12-19] MEDS: SODIUM CHLORIDE 1 GM TABLET PO SCH ×4 (09:23→22:16)
[2021-12-19] MEDS: polyethylene glycoL POWDER 17 GM (MIRALAX) PACK PO SCH (09:23)
--- NOTE | 2021-12-19 10:31 | ST Cognitive Linguistic Eval ---
Speech Evaluation-General Medical Diagnosis Debility Onset Date: Dec 06, 2021 Therapy Diagnosis Therapy Diagnosis: Impaired Neurocognitive Skills Precautions Precautions: Fall, Pressure Ulcer, Aspiration Precautions/Isolations: Aspiration, Fall Prevention, Standard Precautions, Pressure Ulcer Referral Referring Physician: Dr. Cheyenne Lacy Reason for Referral: Evaluation/Treatment Medical History Current History The patient is a 76 year-old male with a past medical history of hyperlipidemia and metastatic esophageal cancer, who is being admitted to inpatient rehab services with a diagnosis of debility. Reviewed History: Yes Social History Current Living Status: Children Speech PLF-Current Status Prior Level of Function The patient denied prior challenges with his speech, language, or cognition. The clinician is knowledgeable of the patient's dysphagia concerns and visited briefly with the patient on this date prior to the dysphagia evaluation on the subsequent date. The patient feels he is uninterested at attempting P.O. consistencies at this time. Regardless of verbal encouragement, the patient stated he remains comfortable with PEG use, only. The clinician will continue the conversations with the patient throughout the clinical bedside swallowing evaluation. Subjective The patient was seated upright in his recliner, awake and alert upon entrance to his room by the clinician. The patient greeted the clinician appropriately and was agreeable to participation in the cognitive linguistic assessment. Language Eval: Auditory Comprehends Simple Yes/No Ques: Functional Indent/Objects Multiple Breen: Functional Ident/Pics in Multiple Breen: Functional Follows 1-Step Commands: Functional Follows General Conversations: Functional Language Eval: Verbal Language Completes Spontaneous Greeting: Functional Produces Auto, Serial Info: Functional Imitates Simple Words/Phrases: Functional Word Finding: Functional Requests Basic Needs: Functional States Basic Personal Info: Functional Cognitive Patient Orientation The patient was independently oriented to self, location, month, day of the week, date, and year. Objective Cognitive Domain Attention: Mild Memory: Mild Problem Solving: Mild Executive Functions: Mild Visuospatial Skills: WNL Composite Severity Rating: Mild Clock Drawing Severity Rating: WNL Objective Formal/Standardized Tests [facility] Mental Status Exam (UMS) Results The patient demonstrated a result of 21/30 on the SLUMS correlating to a mild neurocognitive impairment. Oral Motor/Speech Production The patient does not display dysarthria or apraxia of speech at this time. The patient is 100% intelligible in known and unknown contexts. Impression The patient demonstrated a mild neurocognitive impairment, most notably in the areas of memory and problem solving. Speech Patient Assess Expression of Ideas/Wants: Exhibits (3) Understanding Verbal Content: Usually Understands (3) Brief Interview-Mental Status: Yes Repetition of Three Words: Three (3) Temporal Orientation: Year: Correct (3) Temporal Orientation: Month: Accurate within 5 days(2) Temporal Orientation: Day: Correct (1) Recall : Wear to say "Sock": Yes, no cue required (2) Recall : Color: Yes, no cue required (2) Recall : Bed: Yes, no cue required (2) Memory/Recall Ability: Current season, That he or she is in a hsp/hsp unit Speech Short Term Goals Short Term Goals Short Term Goals 1. The patient will demonstrated 80% accuracy with memory exercises with mild clinician verbal cueing. Time Frame-STG: One Week. Speech Damascener Goals Usp Goals 1. The patient will demonstrate improved cognitive linguistic function for safe discharge to the least restrictive environment. Time Frame: Ten Days. Speech-Plan Treatment Plan Speech Therapy Treatment Plan: Continue Plan of Care Treatment Duration: Jan 01, 2022 Frequency: Modified Program (IRF) (Four to five times per week.) Estimated Hrs Per Day: .5 hour per day Rehab Potential: Guarded Safety Risks/Education Teaching Recipient: Patient Teaching Methods: Discussion Response to Teaching: Verbalize Understanding Education Topics Provided: Results, Recommendations, Plan of Care Time Speech Therapy Time In: 10:00 Speech Therapy Time Out: 10:30 Total Billed Time: 30 Billed Treatment Time 1, NICK BARCLAY [facility] ST Dec 19, 2021 10:31
[2021-12-19] MEDS: fentaNYL PATCH 25 MCG (DURAGESIC) TD SCH (11:14)
--- NOTE | 2021-12-19 11:58 | Occupational Ther Daily Note ---
OT Current Status-Daily Note Subjective Pt in recliner, agreeable to OT Tx. Pt declined full shower due to port, PEG tub, and due to overall not feeling well today. ADL-Treatment Therapy Code Descriptions/Definitions Functional [place] Measure: 0=Not Assessed/NA 4=Minimal Assistance 1=Total Assistance 5=Supervision or Setup 2=Maximal Assistance 6=Modified [place] 3=Moderate Assistance 7=Complete IndependenceSCALE: Activities may be completed with or without assistive devices. 8-Gyausaozbx-bateggi completes the activity by him/herself with no assistance from a helper. 5-Set-up or Clean-up Assistance-helper sets up or cleans up; patient completes activity. [place] assists only prior to or following the activity. 4-Supervision or Touching Assistance-helper provides verbal cues and/or touching/steadying and/or contact guard assistance as patient completes activity. Assistance may be provided throughout the activity or intermittently. 3-Partial/Moderate Assistance-helper does LESS THAN HALF the effort. [place] lifts, holds or supports trunk or limbs, but provides less than half the effort. 2-Substantial/Maximal Assistance-helper does MORE THAN HALF the effort. [place] lifts or holds trunk or limbs and provides more than half the effort. 6-Xealcfyzi-oukzuu does ALL the effort. Patient does none of the effort to complete the activity. Or, the assistance of 2 or more helpers is required for the patient to complete the activity. If activity was not attempted, code reason: 7-Patient Refused. 9-Not Applicable-not attempted and the patient did not perform the activity before the current illness, exacerbation or injury. 10-Not Attempted due to Environmental Limitations-(lack of equipment, weather restraints, etc.). 88-Not Attempted due to Medical Conditions or Safety Concerns. Oral Hygiene (QC): 10 (Pt doesn't have dentures with him) Shower/Bathe Self (QC): 4 (SBA [facility] Upper Body Dressing (QC): 5 (set up with button up shirt.) Lower Body Dressing (QC): 3 (Min A threading feet into brief.) Pt required increased time with ADLS, and frequent rest breaks. Other Treatment Pt in recliner, agreeable to OT Tx. Pt completed sponge bath and dressing at [facility]. He declined full shower due to attachments on chest/abdomen, and declined putting clothes on. With encouragement, pt donned/doffed button up shirt in order to assess level of assistance, but requested a gown afterwards. Pt then completed nut/bolt block, x16 nuts/bolts. This was complete in order to increase BUE Strength and activity tolerance and fine motor strength/coordination. Post tx, pt in recliner, call light in reach and all needs met. Education OT Patient Education: Correct positioning, Energy conservation, Modified ADL techniques, Progress toward Goal/Update tx plan, Purpose of tx/functional activities, Rehab process Teaching Recipient: Patient Teaching Methods: Discussion Response to Teaching: Verbalize Understanding OT Short Term Goals Short Term Goals Time Frame: Dec 25, 2021 Eatin Oral hygiene: 4 Toileting hygiene: 5 Shower/bathe self: 3 Upper body dressin Lower body dressin Putting on/taking off footwear: 4 OT Diesel Powerplant Supervisor Goals Diesel Powerplant Supervisor Goals Time Frame: Dec 31, 2021 Eating (QC): 88 Oral Hygiene (QC): 5 Toileting Hygiene (QC): 6 Shower/Bathe Self (QC): 5 Upper Body Dressing (QC): 6 Lower Body Dressing (QC): 6 On/Off Footwear (QC): 6 1=Demonstrate adherence to instructed precautions during ADL tasks. 2=Patient will verbalize/demonstrate understanding of assistive devices/modifications for ADL. 3=Patient will improve strength/tolerance for activity to enable patient to perform ADL's. OT Education/Plan Problem List/Assessment Assessment: Decreased Activ Tolerance, Decreased UE Strength, Impaired Funct Balance, Impaired I ADL's, Impaired Self-Care Skills Discharge Recommendations Plan/Recommendations: Continue POC Treatment Plan/Plan of Care Patient would benefit from OT for education, treatment and training to promote independence in ADL's, mobility, safety and/or upper extremity function for ADL's. Plan of Care: ADL Retraining, Concurrent Therapy, Functional Mobility, Group Exercise/Act as Ind, UE Funct Exercise/Act Treatment Duration: Dec 31, 2021 Frequency: At least 5 of 7 days/Wk (IRF) Estimated Hrs Per Day: 1.5 hours per day (75-90 min/day ) Agreement: Yes Rehab Potential: Good Time/GCodes Start Time: 11:00 Stop Time: 12:15 Total Time Billed (hr/min): 75 Billed Treatment Time 1, ADL 3 (45'), FA 2 (30') FRANCINE DUEÑAS OT Dec 19, 2021 11:58
--- NOTE | 2021-12-19 15:05 | Physical Therapy Daily Note ---
PT Daily Note-Current Subjective Pt. up in recliner but would like to lay down in bed and agrees to exercises. Pain Location: No Pain Reported Mental Status Patient Orientation: Normal For Age Attachments: PEG Tube Transfers SCALE: Activities may be completed with or without assistive devices. 2-Fcbyiwyxwj-wbnxhur completes the activity by him/herself with no assistance from a helper. 5-Set-up or Clean-up Assistance-helper sets up or cleans up; patient completes activity. [place] assists only prior to or following the activity. 4-Supervision or Touching Assistance-helper provides verbal cues and/or touching/steadying and/or contact guard assistance as patient completes activity. Assistance may be provided throughout the activity or intermittently. 3-Partial/Moderate Assistance-helper does LESS THAN HALF the effort. [place] lifts, holds or supports trunk or limbs, but provides less than half the effort. 2-Substantial/Maximal Assistance-helper does MORE THAN HALF the effort. [place] lifts or holds trunk or limbs and provides more than half the effort. 7-Ctmajaiwj-xisrko does ALL the effort. Patient does none of the effort to complete the activity. Or, the assistance of 2 or more helpers is required for the patient to complete the activity. If activity was not attempted, code reason: 7-Patient Refused. 9-Not Applicable-not attempted and the patient did not perform the activity before the current illness, exacerbation or injury. 10-Not Attempted due to Environmental Limitations-(lack of equipment, weather restraints, etc.). 88-Not Attempted due to Medical Conditions or Safety Concerns. sit to stand using lift chair CGA, sit to sup SBA Gait Training Gait Assistive Device: FWW 10 ft FWW CGA PT Short Term Goals Short Term Goals Time Frame: Dec 25, 2021 Roll Left & Right: 6 Sit to lyin Lying to sitting on side of be: 6 Sit to stand: 4 (SBA) Chair/oza-wx-mwkco transfer: 4 (SBA) Walk 10 feet: 4 (SBA) Walk 50 feet with two turns: 4 (SBA) Walk 150 feet: 4 (SBA) PT Fixture Repairer Fabricator Goals Retirement Goals PT Retirement Goals Time Frame: Jan 08, 2022 Roll Left & Right (QC): 6 Sit to Lying (QC): 6 Lying-Sitting on Side/Bed(QC): 6 Sit to Stand (QC): 6 Chair/Exs-tp-Btoof Xfer(QC): 6 Toilet Transfer (QC): 6 Car Transfer (QC): 6 Does the Patient Walk: Yes Walk 10 feet (QC): 6 Walk 50ft with 2 Turns (QC): 6 Walk 150 ft (QC): 6 Walking 10ft on Uneven Surface: 6 1 Step (curb) (QC): 6 4 Steps (QC): 6 12 Steps (QC): 6 Picking up an Object (QC): 6 Wheel 50 feet with 2 turns (QC: 9 Wheel 150 feet: 9 PT Plan Treatment/Plan Treatment Plan: Continue Plan of Care Treatment Plan: Education, Functional Activity Melo, Functional Strength, Group Therapy, Gait, Safety, Therapeutic Exercise, Transfers Treatment Duration: Jan 08, 2022 Frequency: At least 5 of 7 days/Wk (IRF) Estimated Hrs Per Day: 1.5 hours per day Patient and/or Family Agrees t: Yes Safety Risks/Education Patient Education: Gait Training, Transfer Techniques, Correct Positioning Time/GCodes Time In: 1440 Time Out: 1500 Total Billed Treatment Time: 20 Total Billed Treatment 1,FA20m SOLOMON ROBBINS SCREW MACHINE OPERATOR Dec 19, 2021 15:05
[2021-12-19 20:43] VITALS: BP 138/79
[2021-12-20] MEDS: KCL 20 MEQ TAB (K-DUR) PO SCH (05:59)
--- NOTE | 2021-12-20 06:12 | PM&R Progress Note ---
Subjective HPI/CC On Admission Date Seen by Provider: Dec 20, 2021 Time Seen by Provider: 12:30 Subjective/Events-last exam 12/20/2021: Patient doing much better Fentanyl patch has made a huge difference No pain is reported right now Tolerating PEG tube feedings Minimal emesis 12/19/2021: Patient doing better except for the pain Starting fentanyl patch because extended release pills can't go through PEG tube Emesis at times which is an issue that occurred at [facility] Walking around pretty well Supportive care will continue Review of Systems General: Fatigue, Malaise Objective Exam Vital Signs Vital Signs Date Time Temp Pulse Resp B/P (MAP) Pulse Ox O2 Delivery O2 Flow Rate FiO2 12/20/21 21:10 Room Air 12/20/21 20:40 36.9 93 20 123/71 (88) 95 Capillary Refill : General Appearance: No Apparent Distress, WD/WN, Chronically ill, Thin HEENT: PERRL/EOMI, Normal ENT Inspection, Pharynx Normal Neck: Full Range of Motion, Normal Inspection, Non Tender, Supple, Carotid Bruit Respiratory: Chest Non Tender, Lungs Clear, Normal Breath Sounds, No Accessory Muscle Use, No Respiratory Distress Cardiovascular: Regular Rate, Rhythm, No Edema, No Gallop, No JVD, No Murmur, Normal Peripheral Pulses Gastrointestinal: Normal Bowel Sounds, No Organomegaly, No Pulsatile Mass, Non Tender, Soft, Other (PEG tube in place) Back: Normal Inspection, No CVA Tenderness, No Vertebral Tenderness Extremity: Normal Capillary Refill, Normal Inspection, Normal Range of Motion, Non Tender, No Calf Tenderness, No Pedal Edema Neurologic/Psychiatric: Alert, Oriented x3, No Motor/Sensory Deficits, medical receptionist medical assistant II- XII Norm as Tested, Depressed Affect, Motor Weakness (Generalized) Skin: Normal Color, Warm/Dry Lymphatic: No Adenopathy Results/Procedures Lab Patient resulted labs reviewed. FIM Transfers Therapy Code Descriptions/Definitions Functional [place] Measure: 0=Not Assessed/NA 4=Minimal Assistance 1=Total Assistance 5=Supervision or Setup 2=Maximal Assistance 6=Modified [place] 3=Moderate Assistance 7=Complete IndependenceSCALE: Activities may be completed with or without assistive devices. 2-Lizkpaoawk-mytkrrk completes the activity by him/herself with no assistance from a helper. 5-Set-up or Clean-up Assistance-helper sets up or cleans up; patient completes activity. [place] assists only prior to or following the activity. 4-Supervision or Touching Assistance-helper provides verbal cues and/or touching/steadying and/or contact guard assistance as patient completes activity. Assistance may be provided throughout the activity or intermittently. 3-Partial/Moderate Assistance-helper does LESS THAN HALF the effort. [place] lifts, holds or supports trunk or limbs, but provides less than half the effort. 2-Substantial/Maximal Assistance-helper does MORE THAN HALF the effort. [place] lifts or holds trunk or limbs and provides more than half the effort. 5-Gbpkpnafj-grmuaz does ALL the effort. Patient does none of the effort to complete the activity. Or, the assistance of 2 or more helpers is required for the patient to complete the activity. If activity was not attempted, code reason: 7-Patient Refused. 9-Not Applicable-not attempted and the patient did not perform the activity before the current illness, exacerbation or injury. 10-Not Attempted due to Environmental Limitations-(lack of equipment, weather restraints, etc.). 88-Not Attempted due to Medical Conditions or Safety Concerns. Roll Left to Right (QC): 6 Sit to Lying (QC): 6 Sit to Stand (QC): 4 Chair/Kqp-tj-Qrpxt Xfer(QC): 4 Car Transfer (QC): 4 Gait Training Does the Patient Walk?: Yes Walk 10 feet (QC): 4 Walk 50 ft with 2 Turns(QC): 4 Walk 150 ft (QC): 4 Walking 10ft/uneven surface-QC: 4 Gait Assistive Device: FWW Wheelchair Training Does the Pt Use a Wheelchair?: Yes Wheel 50 ft with 2 turns (QC): 4 Wheel 150 ft (QC): 4 Type of Wheelchair: Manual Stair Training #of Steps: 4 1 Step (curb) (QC): 4 4 Steps (QC): 4 12 Steps (QC): 88 Balance Picking up an Object (QC): 4 (CGA without using a planning official) ADL-Treatment Eating (QC): 88 (PEG tube) Oral Hygiene (QC): 10 (Pt doesn't have dentures with him) Shower/Bathe Self (QC): 4 (SBA with sponge bath at recliner.) Upper Body Dressing (QC): 5 (set up with button up shirt.) Lower Body Dressing (QC): 3 (Min A threading feet into brief.) On/Off Footwear (QC): 3 Toileting Hygiene (QC): 4 Assessment/Plan Assessment and Plan Assess & Plan/Chief Complaint Assessment: Debility Profound weight loss Esophageal cancer with widespread metastasis Dysphagia Chronic pain Hyperlipidemia Hyponatremia placed on fluid restriction Plan: Fluid restriction Supportive care Tube feedings PT and OT 12/19/2021: Add fentanyl patch Supportive care 12/20/2021: Continue fentanyl patch Monitor closely (1) Debility CALVIN OVERTON DO Dec 20, 2021 06:12
[2021-12-20 07:54] VITALS: BP 126/60
[2021-12-20] MEDS: LACTULOSE SYRUP 10GM/15ML (ENULOSE) 30ML UDC PEG SCH (08:55)
[2021-12-20] MEDS: DOCUSATE SODIUM 10 MG/ML 10 ML UDC (COLACE) PO SCH ×2 (08:55→21:06)
[2021-12-20] MEDS: PANTOPRAZOLE 2 MG/ML LIQUID 200 ML (PROTONIX) PEG SCH ×6 (08:55→21:07)
--- NOTE | 2021-12-20 08:56 | Physical Therapy Daily Note ---
PT Daily Note-Current Subjective Patient in bed pre tx, agrees to PT, has some unrated pain in lower abdomen. Patient states he tried to use the restroom but was unsuccessful. Patient states he feels a lot better today. Appearance Patient in bed post tx with nurse call, phone, tray, all needs met. Mental Status Patient Orientation: Person, Place, Situation Attachments: PEG Tube Transfers SCALE: Activities may be completed with or without assistive devices. 2-Xgtzknoyga-dewzsuu completes the activity by him/herself with no assistance from a helper. 5-Set-up or Clean-up Assistance-helper sets up or cleans up; patient completes activity. [place] assists only prior to or following the activity. 4-Supervision or Touching Assistance-helper provides verbal cues and/or touching/steadying and/or contact guard assistance as patient completes activity. Assistance may be provided throughout the activity or intermittently. 3-Partial/Moderate Assistance-helper does LESS THAN HALF the effort. [place] lifts, holds or supports trunk or limbs, but provides less than half the effort. 2-Substantial/Maximal Assistance-helper does MORE THAN HALF the effort. [place] lifts or holds trunk or limbs and provides more than half the effort. 7-Njyhqiyzu-kdoaep does ALL the effort. Patient does none of the effort to complete the activity. Or, the assistance of 2 or more helpers is required for the patient to complete the activity. If activity was not attempted, code reason: 7-Patient Refused. 9-Not Applicable-not attempted and the patient did not perform the activity before the current illness, exacerbation or injury. 10-Not Attempted due to Environmental Limitations-(lack of equipment, weather restraints, etc.). 88-Not Attempted due to Medical Conditions or Safety Concerns. Roll Left & Right (QC): 6 Sit to Lying (QC): 6 Lying to Sitting/Side of Bed(Q: 6 Sit to Stand (QC): 4 Chair/Wnl-rk-Zcirh Xfer(QC): 4 SBA for sit to stand and transfers, needs occasional cues for hand placement during sit <-> stand Gait Training Distance: 200', 150'x2 Walk 10 feet (QC): 44 Walk 50 ft with 2 Turns(QC): 4 Walk 150 ft (QC): 4 Gait Assistive Device: FWW SBA, slow but steady ambulation Exercises LAQ alternating for 5 min with 2# ankle weights, sit to stand 3 sets of 10 NuStep Minutes: 15 NuStep Workload: 5 Treatments bed mobility and transfers, ambulation, functional strengthening Assessment Current Status: Fair Progress improved functional mobility PT Short Term Goals Short Term Goals Time Frame: Dec 25, 2021 Roll Left & Right: 6 Sit to lyin Lying to sitting on side of be: 6 Sit to stand: 4 (SBA) Chair/cfm-fi-gsyef transfer: 4 (SBA) Walk 10 feet: 4 (SBA) Walk 50 feet with two turns: 4 (SBA) Walk 150 feet: 4 (SBA) PT Telephone Directory Deliverer Goals [facility] Goals PT Telephone Directory Deliverer Goals Time Frame: Jan 08, 2022 Roll Left & Right (QC): 6 Sit to Lying (QC): 6 Lying-Sitting on Side/Bed(QC): 6 Sit to Stand (QC): 6 Chair/Fry-au-Xpqss Xfer(QC): 6 Toilet Transfer (QC): 6 Car Transfer (QC): 6 Does the Patient Walk: Yes Walk 10 feet (QC): 6 Walk 50ft with 2 Turns (QC): 6 Walk 150 ft (QC): 6 Walking 10ft on Uneven Surface: 6 1 Step (curb) (QC): 6 4 Steps (QC): 6 12 Steps (QC): 6 Picking up an Object (QC): 6 Wheel 50 feet with 2 turns (QC: 9 Wheel 150 feet: 9 PT Plan Problem List Problem List: Activity Tolerance, Functional Strength, Safety, Balance, Gait, Transfer, ROM Treatment/Plan Treatment Plan: Continue Plan of Care Treatment Plan: Education, Functional Activity Melo, Functional Strength, Group Therapy, Gait, Safety, Therapeutic Exercise, Transfers Treatment Duration: Jan 08, 2022 Frequency: At least 5 of 7 days/Wk (IRF) Estimated Hrs Per Day: 1.5 hours per day Patient and/or Family Agrees t: Yes Safety Risks/Education Patient Education: Gait Training, Transfer Techniques, Correct Positioning, Safety Issues Teaching Recipient: Patient Teaching Methods: Demonstration, Discussion Response to Teaching: Reinforcement Needed Time/GCodes Time In: 0800 Time Out: 0900 Total Billed Treatment Time: 60 Total Billed Treatment 1 visit EX 30' FA 30' GORAN DE ANDA PT Dec 20, 2021 08:56
[2021-12-20] MEDS: SODIUM CHLORIDE 1 GM TABLET PO SCH ×4 (08:58→21:08)
[2021-12-20] MEDS: polyethylene glycoL POWDER 17 GM (MIRALAX) PACK PO SCH (09:04)
--- NOTE | 2021-12-20 09:19 | Occupational Ther Daily Note ---
OT Current Status-Daily Note Subjective Pt in bed, agreeable to OT Tx. Mental Status/Objective Patient Orientation: Person, Place, Time, Situation Attachments: PEG Tube ADL-Treatment Therapy Code Descriptions/Definitions Functional [place] Measure: 0=Not Assessed/NA 4=Minimal Assistance 1=Total Assistance 5=Supervision or Setup 2=Maximal Assistance 6=Modified [place] 3=Moderate Assistance 7=Complete IndependenceSCALE: Activities may be completed with or without assistive devices. 9-Akjchvrtat-axosfvm completes the activity by him/herself with no assistance from a helper. 5-Set-up or Clean-up Assistance-helper sets up or cleans up; patient completes activity. [place] assists only prior to or following the activity. 4-Supervision or Touching Assistance-helper provides verbal cues and/or touching/steadying and/or contact guard assistance as patient completes activity. Assistance may be provided throughout the activity or intermittently. 3-Partial/Moderate Assistance-helper does LESS THAN HALF the effort. [place] lifts, holds or supports trunk or limbs, but provides less than half the effort. 2-Substantial/Maximal Assistance-helper does MORE THAN HALF the effort. [place] l ifts or holds trunk or limbs and provides more than half the effort. 4-Nktvlanny-sajrty does ALL the effort. Patient does none of the effort to complete the activity. Or, the assistance of 2 or more helpers is required for the patient to complete the activity. If activity was not attempted, code reason: 7-Patient Refused. 9-Not Applicable-not attempted and the patient did not perform the activity before the current illness, exacerbation or injury. 10-Not Attempted due to Environmental Limitations-(lack of equipment, weather restraints, etc.). 88-Not Attempted due to Medical Conditions or Safety Concerns. Eating (QC): 88 (PEG tube) Lower Body Dressing (QC): 4 (Supervision, pt able to thread BLEs and manage block t hike.) Toileting Hygiene (QC): 6 (IND with clothing management) Other Treatment Pt in bed, transferred supine to sit EOB independently. Pt used FWW to transfer into bathroom and onto toilet, SBA. Pt completed toileting and LB dressing, then used FWW to perform functional mobility to therapy gym, SBA. OT tx focused on increasing BUE strength and activity tolerance, fine motor strength and coordination. Pt completed arm bike, x10 mins, 25 Watt resistance, 1 rest break. He then removed beads from heavy resistance (green) theraputty, able to locate all beads without cues. Pt completed pipe tree activity, 1lb wrist weights BUEs, completing 5 printed patterns. Pt then placed 100 pegs into foam pegboard, alternating hands, 1lb weights BUEs. Pt returned to his room, using FWW, SBA. Post tx, pt in bed, call light in reach and all needs met. Education OT Patient Education: Correct positioning, Energy conservation, Modified ADL techniques, Progress toward Goal/Update tx plan, Purpose of tx/functional activities, Rehab process Teaching Recipient: Patient Teaching Methods: Discussion Response to Teaching: Verbalize Understanding OT Short Term Goals Short Term Goals Time Frame: Dec 25, 2021 Eatin Oral hygiene: 4 Toileting hygiene: 5 Shower/bathe self: 3 Upper body dressin Lower body dressin Putting on/taking off footwear: 4 OT Senior Care Goals Chargeback Analyst Goals Time Frame: Dec 31, 2021 Eating (QC): 88 Oral Hygiene (QC): 5 Toileting Hygiene (QC): 6 Shower/Bathe Self (QC): 5 Upper Body Dressing (QC): 6 Lower Body Dressing (QC): 6 On/Off Footwear (QC): 6 1=Demonstrate adherence to instructed precautions during ADL tasks. 2=Patient will verbalize/demonstrate understanding of assistive devices/modifications for ADL. 3=Patient will improve strength/tolerance for activity to enable patient to perform ADL's. OT Education/Plan Problem List/Assessment Assessment: Decreased Activ Tolerance, Decreased UE Strength, Impaired Funct Balance, Impaired I ADL's, Impaired Self-Care Skills Discharge Recommendations Plan/Recommendations: Continue POC Treatment Plan/Plan of Care Patient would benefit from OT for education, treatment and training to promote i ndependence in ADL's, mobility, safety and/or upper extremity function for ADL's. Plan of Care: ADL Retraining, Concurrent Therapy, Functional Mobility, Group Exercise/Act as Ind, UE Funct Exercise/Act Treatment Duration: Dec 31, 2021 Frequency: At least 5 of 7 days/Wk (IRF) Estimated Hrs Per Day: 1.5 hours per day (75-90 min/day ) Agreement: Yes Rehab Potential: Guarded Time/GCodes Start Time: 09:00 Stop Time: 10:15 Total Time Billed (hr/min): 75 Billed Treatment Time 1, ADL (10'), EX (15'), FA 3 (50') FRANCINE DUEÑAS OT Dec 20, 2021 09:19
--- NOTE | 2021-12-20 14:02 | Physical Therapy Daily Note ---
PT Daily Note-Current Subjective Patient in bed pre tx, agrees to PT, has no complaints of pain. Appearance Patient in bed post tx with nurse call, phone, tray, all needs met. Mental Status Patient Orientation: Person, Place, Situation Transfers SCALE: Activities may be completed with or without assistive devices. 5-Uchdufzruj-uchvfee completes the activity by him/herself with no assistance from a helper. 5-Set-up or Clean-up Assistance-helper sets up or cleans up; patient completes activity. [place] assists only prior to or following the activity. 4-Supervision or Touching Assistance-helper provides verbal cues and/or touching/steadying and/or contact guard assistance as patient completes activity. Assistance may be provided throughout the activity or intermittently. 3-Partial/Moderate Assistance-helper does LESS THAN HALF the effort. [place] lifts, holds or supports trunk or limbs, but provides less than half the effort. 2-Substantial/Maximal Assistance-helper does MORE THAN HALF the effort. [place] lifts or holds trunk or limbs and provides more than half the effort. 8-Scuqazeaf-gqjazh does ALL the effort. Patient does none of the effort to complete the activity. Or, the assistance of 2 or more helpers is required for the patient to complete the activity. If activity was not attempted, code reason: 7-Patient Refused. 9-Not Applicable-not attempted and the patient did not perform the activity before the current illness, exacerbation or injury. 10-Not Attempted due to Environmental Limitations-(lack of equipment, weather restraints, etc.). 88-Not Attempted due to Medical Conditions or Safety Concerns. Exercises Supine Ex: Ankle pumps, Quad Set, Glut sets, Heel Slides, Short Arc Quads, Straight leg raise, Hip abd/add Supine Reps: 20 Treatments LE strengthening Assessment Current Status: Fair Progress no assist needed, patient td well PT Short Term Goals Short Term Goals Time Frame: Dec 25, 2021 Roll Left & Right: 6 Sit to lyin Lying to sitting on side of be: 6 Sit to stand: 4 (SBA) Chair/xtb-uv-gyysj transfer: 4 (SBA) Walk 10 feet: 4 (SBA) Walk 50 feet with two turns: 4 (SBA) Walk 150 feet: 4 (SBA) PT [facility] Goals Chcf Goals PT [facility] Goals Time Frame: Jan 08, 2022 Roll Left & Right (QC): 6 Sit to Lying (QC): 6 Lying-Sitting on Side/Bed(QC): 6 Sit to Stand (QC): 6 Chair/Fui-ma-Auhzt Xfer(QC): 6 Toilet Transfer (QC): 6 Car Transfer (QC): 6 Does the Patient Walk: Yes Walk 10 feet (QC): 6 Walk 50ft with 2 Turns (QC): 6 Walk 150 ft (QC): 6 Walking 10ft on Uneven Surface: 6 1 Step (curb) (QC): 6 4 Steps (QC): 6 12 Steps (QC): 6 Picking up an Object (QC): 6 Wheel 50 feet with 2 turns (QC: 9 Wheel 150 feet: 9 PT Plan Problem List Problem List: Activity Tolerance, Functional Strength, Safety, Balance, Gait, Transfer, ROM Treatment/Plan Treatment Plan: Continue Plan of Care Treatment Plan: Education, Functional Activity Melo, Functional Strength, Group Therapy, Gait, Safety, Therapeutic Exercise, Transfers Treatment Duration: Jan 08, 2022 Frequency: At least 5 of 7 days/Wk (IRF) Estimated Hrs Per Day: 1.5 hours per day Patient and/or Family Agrees t: Yes Safety Risks/Education Patient Education: Correct Positioning, Safety Issues Teaching Recipient: Patient Teaching Methods: Demonstration, Discussion Response to Teaching: Reinforcement Needed Time/GCodes Time In: 1330 Time Out: 1345 Total Billed Treatment Time: 15 Total Billed Treatment 1 visit EX 15' GORAN DE ANDA PT Dec 20, 2021 14:02
--- NOTE | 2021-12-20 15:03 | ST Dysphagia Evaluation ---
Speech Evaluation-General Medical Diagnosis Debility Onset Date: Dec 06, 2021 Therapy Diagnosis Therapy Diagnosis: Esophageal Dysphagia Precautions Precautions: Fall, Pressure Ulcer, Aspiration Precautions/Isolations: Aspiration, Fall Prevention, Standard Precautions, Pressure Ulcer Referral Referring Physician: Dr. Lacy Reason for Referral: Evaluation/Treatment Medical History Current History The patient is a 76 year-old male with a past medical history of hyperlipidemia and metastatic esophageal cancer, who is being admitted to inpatient rehab services with a diagnosis of debility. Reviewed History: Yes Social History Current Living Status: Children Speech PLF/Current-Dysphagia Prior Level of Function Prior to admission to [facility], the patient was N.P.O. with use of the PEG tube, only. Per patient, the PEG tube was placed "about two weeks" ago due to his inability to pass solid consistencies throughout the esophagus secondary to tumor growth. Additionally, the patient stated, "Nothing works. It just comes back up." Subjective The patient was seated upright in his bed, awake and alert upon entrance to his room by the clinician. The patient greeted the clinician appropriately and was agreeable to participation ion the dysphagia evaluation. Per patient, he is not comfortable attempting any other consistency than ice chips. Prior to the session, the clinician completed a conversation with the rehabilitation team stating the N.P.O. status was secondary to the inability to clear items throughout the esophagus, not a surgical/medical recommendation. At this time, only ice chips will be trialed per patient preference. Cognitive Status Patient Orientation: Person, Place, Time, Situation Oral Motor Skills Dentition: Edentalous Ability to Follow Directions: Good Oral Expression Ability: No Impairment Voice Voice Phonatory-Based Quality: Breathy Voice Pitch: Normal Voice Loudness: Mildly Soft/Quiet Face Facial Symmetry: Symmetrical Oral-Facial Assessment Oral-Facial Dentition: Normal Labial Seal Description: Normal Smile: Normal Puff Cheeks: Normal Lingual Protrusion: Normal Lingual ROM: Normal Lingual Strength: Normal Volitional Dry Swallow: Yes Voluntary Cough: Yes Can Clear Throat Volitionally: Yes Productive Cough: Yes Productive Throat Clear: Yes Dysphagia Evaluation Consistencies Presented: Thin Liquid (Ice chips, only.) Oral deficits were not present throughout the evaluation. Prolonged mastication of ice chips was present secondary to edentulous state. The patient did not display pharyngeal deficits throughout the evaluation. Laryngeal elevation was present to palpation. The patient did not display overt s/s of suspected aspiration throughout the clinical bedside swallowing evaluation with ice chips. One episode of a slightly wet vocal quality was present, however, the patient independently completed a throat clear which cleared the vocal quality to baseline. Dietary Recommendations: NPO Liquid Recommendations: NPO Recommendations: - The patient should continue NPO status with complete nutrition, hydration, and medication being administered through the PEG tube. - Frequent and thorough oral care to reduce the aspiration of bacteria from the oral cavity should aspiration of secretions occur. - Following oral care, ice chips sparingly for comfort and rehabilitation. - Continue effortful swallowing exercises throughout ice chip administration (discussed and demonstrated by the patient). - Monitor for s/s of suspected aspiration with ice chips. If demonstrated, re move ice chips and contact speech pathology. The results and recommendations were discussed with the patient and the RN. The patient denied questions for the clinician and was comfortable with the results. Dysphagia Evaluation Summary The patient presents with known esophageal dysphagia secondary to the presence of an esophageal mass. Oral and pharyngeal swallowing deficits were not displayed throughout the evaluation. Speech Short Term Goals Short Term Goals Short Term Goals 1. The patient will demonstrate 80% accuracy with memory exercises with mild clinician verbal cueing. 2. The patient will follow safe swallowing strategies with 90% accuracy, independently. Time Frame-STG: One Week. Speech Fci Goals Fci Goals 1. The patient will demonstrate improved cognitive linguistic function for safe discharge to the least restrictive environment. 2. The patient will tolerate the least restrictive diet consistency without s/s of suspected aspiration. Time Frame: Ten Days. Speech-Plan Treatment Plan Speech Therapy Treatment Plan: Continue Plan of Care Treatment Duration: Dec 19, 2021 Frequency: Modified Program (IRF) Estimated Hrs Per Day: Other Rehab Potential: Guarded Safety Risks/Education Teaching Recipient: Patient Teaching Methods: Discussion Response to Teaching: Reinforcement Needed Education Topics Provided: Recommendations, Safe Swallowing Strategies, S/s of Suspected Aspiration Time Speech Therapy Time In: 12:30 Speech Therapy Time Out: 13:00 Total Billed Time: 30 Billed Treatment Time 1, ANA BRAN [facility] ST Dec 20, 2021 15:03
[2021-12-20 20:40] VITALS: BP 123/71
[2021-12-20] MEDS: ACETAMINOPHEN ER 650 MG (TYLENOL ARTHRITIS) PO PRN (21:09)
[2021-12-20] MEDS: CATHETER FLUSH 10 ML SYR IVP SCH (21:20)
[2021-12-21] MEDS: KCL 20 MEQ TAB (K-DUR) PO SCH (05:51)
[2021-12-21] MEDS: CATHETER FLUSH 10 ML SYR IVP SCH ×3 (06:11→20:13)
--- NOTE | 2021-12-21 06:36 | PM&R Progress Note ---
Subjective HPI/CC On Admission Date Seen by Provider: Dec 21, 2021 Time Seen by Provider: 12:00 Subjective/Events-last exam 12/21/2021: Patient having abdominal pain Constipation is likely an issue but could be ileus for esophageal cancer with obstruction We will check x-ray and consult Dr. Quintero 12/20/2021: Patient doing much better Fentanyl patch has made a huge difference No pain is reported right now Tolerating PEG tube feedings Minimal emesis 12/19/2021: Patient doing better except for the pain Starting fentanyl patch because extended release pills can't go through PEG tube Emesis at times which is an issue that occurred at [facility] Walking around pretty well Supportive care will continue Review of Systems General: Fatigue, Malaise Objective Exam Vital Signs Vital Signs Date Time Temp Pulse Resp B/P (MAP) Pulse Ox O2 Delivery O2 Flow Rate FiO2 12/21/21 09:00 Room Air 12/21/21 07:27 36.6 81 16 128/68 (88) 96 Capillary Refill : General Appearance: No Apparent Distress, WD/WN, Chronically ill, Thin HEENT: PERRL/EOMI, Normal ENT Inspection, Pharynx Normal Neck: Full Range of Motion, Normal Inspection, Non Tender, Supple, Carotid Bruit Respiratory: Chest Non Tender, Lungs Clear, Normal Breath Sounds, No Accessory Muscle Use, No Respiratory Distress Cardiovascular: Regular Rate, Rhythm, No Edema, No Gallop, No JVD, No Murmur, Normal Peripheral Pulses Gastrointestinal: Normal Bowel Sounds, No Organomegaly, No Pulsatile Mass, Non Tender, Soft, Other (PEG tube in place) Back: Normal Inspection, No CVA Tenderness, No Vertebral Tenderness Extremity: Normal Capillary Refill, Normal Inspection, Normal Range of Motion, Non Tender, No Calf Tenderness, No Pedal Edema Neurologic/Psychiatric: Alert, Oriented x3, No Motor/Sensory Deficits, mower sharpener II- XII Norm as Tested, Depressed Affect, Motor Weakness (Generalized) Skin: Normal Color, Warm/Dry Lymphatic: No Adenopathy Results/Procedures Lab Patient resulted labs reviewed. FIM Transfers Therapy Code Descriptions/Definitions Functional [place] Measure: 0=Not Assessed/NA 4=Minimal Assistance 1=Total Assistance 5=Supervision or Setup 2=Maximal Assistance 6=Modified [place] 3=Moderate Assistance 7=Complete IndependenceSCALE: Activities may be completed with or without assistive devices. 7-Kvzldgtlwf-yyutxab completes the activity by him/herself with no assistance f rom a helper. 5-Set-up or Clean-up Assistance-helper sets up or cleans up; patient completes activity. [place] assists only prior to or following the activity. 4-Supervision or Touching Assistance-helper provides verbal cues and/or touching/steadying and/or contact guard assistance as patient completes activity. Assistance may be provided throughout the activity or intermittently. 3-Partial/Moderate Assistance-helper does LESS THAN HALF the effort. [place] lifts, holds or supports trunk or limbs, but provides less than half the effort. 2-Substantial/Maximal Assistance-helper does MORE THAN HALF the effort. [place] lifts or holds trunk or limbs and provides more than half the effort. 4-Ymlikuxql-ocqqgr does ALL the effort. Patient does none of the effort to complete the activity. Or, the assistance of 2 or more helpers is required for the patient to complete the activity. If activity was not attempted, code reason: 7-Patient Refused. 9-Not Applicable-not attempted and the patient did not perform the activity before the current illness, exacerbation or injury. 10-Not Attempted due to Environmental Limitations-(lack of equipment, weather restraints, etc.). 88-Not Attempted due to Medical Conditions or Safety Concerns. Roll Left to Right (QC): 6 Sit to Lying (QC): 6 Sit to Stand (QC): 4 Chair/Qcu-cz-Cenpq Xfer(QC): 4 Car Transfer (QC): 4 Gait Training Does the Patient Walk?: Yes Distance: 200', 150'x2 Walk 10 feet (QC): 44 Walk 50 ft with 2 Turns(QC): 4 Walk 150 ft (QC): 4 Walking 10ft/uneven surface-QC: 4 Gait Assistive Device: FWW Wheelchair Training Does the Pt Use a Wheelchair?: Yes Wheel 50 ft with 2 turns (QC): 4 Wheel 150 ft (QC): 4 Type of Wheelchair: Manual Stair Training #of Steps: 4 1 Step (curb) (QC): 4 4 Steps (QC): 4 12 Steps (QC): 88 Balance Picking up an Object (QC): 4 (CGA without using a web press jogger) ADL-Treatment Eating (QC): 88 (PEG tube) Oral Hygiene (QC): 10 (Pt doesn't have dentures with him) Shower/Bathe Self (QC): 4 (SBA with sponge bath at recliner.) Upper Body Dressing (QC): 5 (set up with button up shirt.) Lower Body Dressing (QC): 4 (Supervision, pt able to thread BLEs and manage pant hike.) On/Off Footwear (QC): 3 Toileting Hygiene (QC): 6 (IND with clothing management) Assessment/Plan Assessment and Plan Assess & Plan/Chief Complaint Assessment: Debility Profound weight loss Esophageal cancer with widespread metastasis Dysphagia Chronic pain Hyperlipidemia Hyponatremia placed on fluid restriction Abdominal pain work-up in process 12/21/2021 Plan: Fluid restriction Supportive care Tube feedings PT and OT 12/19/2021: Add fentanyl patch Supportive care 12/20/2021: Continue fentanyl patch Monitor closely 12/21/2021: Consult Dr. Quintero Abdominal x-ray (1) Debility CALVIN OVERTON DO Dec 21, 2021 06:36
[2021-12-21 07:27] VITALS: BP 128/68
[2021-12-21] MEDS: LACTULOSE SYRUP 10GM/15ML (ENULOSE) 30ML UDC PEG SCH (08:39)
[2021-12-21] MEDS: DOCUSATE SODIUM 10 MG/ML 10 ML UDC (COLACE) PO SCH ×2 (08:39→20:08)
[2021-12-21] MEDS: polyethylene glycoL POWDER 17 GM (MIRALAX) PACK PO SCH (08:40)
[2021-12-21] MEDS: PANTOPRAZOLE 2 MG/ML LIQUID 200 ML (PROTONIX) PEG SCH ×6 (08:41→20:08)
[2021-12-21] MEDS: SODIUM CHLORIDE 1 GM TABLET PO SCH ×4 (08:41→20:08)
--- NOTE | 2021-12-21 09:37 | Physical Therapy Daily Note ---
PT Daily Note-Current Subjective Pt sitting up in bed upon arrival. Pt reports abdominal discomfort due to residual fluid removed. Pt agrees to PT. Pain Numeric Pain Scale: 8 Location Body Site: Abdomen Pain Description: Ache Comment: Nursing aware for abdominal pain & B hip tightness Mental Status Patient Orientation: Person, Place, Time, Situation Transfers SCALE: Activities may be completed with or without assistive devices. 9-Ykhmabcedm-qackday completes the activity by him/herself with no assistance from a helper. 5-Set-up or Clean-up Assistance-helper sets up or cleans up; patient completes activity. [place] assists only prior to or following the activity. 4-Supervision or Touching Assistance-helper provides verbal cues and/or touching/steadying and/or contact guard assistance as patient completes activity. Assistance may be provided throughout the activity or intermittently. 3-Partial/Moderate Assistance-helper does LESS THAN HALF the effort. [place] lifts, holds or supports trunk or limbs, but provides less than half the effort. 2-Substantial/Maximal Assistance-helper does MORE THAN HALF the effort. [place] lifts or holds trunk or limbs and provides more than half the effort. 6-Yeoxbofgt-kjyfmq does ALL the effort. Patient does none of the effort to complete the activity. Or, the assistance of 2 or more helpers is required for the patient to complete the activity. If activity was not attempted, code reason: 7-Patient Refused. 9-Not Applicable-not attempted and the patient did not perform the activity before the current illness, exacerbation or injury. 10-Not Attempted due to Environmental Limitations-(lack of equipment, weather restraints, etc.). 88-Not Attempted due to Medical Conditions or Safety Concerns. Sit to Stand (QC): 4 Toilet Transfer (QC): 4 Weight Bearing Full Weight Bearing Full Weight Bearing Gait Training Does the Patient Walk?: Yes Distance: 500' Walk 10 feet (QC): 5 Walk 50 ft with 2 Turns(QC): 5 Walk 150 ft (QC): 5 Gait Assistive Device: FWW Pt walks with slow antalgic gait pattern due to tightness along B hips. Treatments TF to standing, declines need for BR. Pt amb. in hallway before taking RB part way through amb. After RB, pt amb. in hallway returning to room and using BR. All needs met, call light in hand. Assessment Current Status: Good Progress Pt td. tx well. PT Short Term Goals Short Term Goals Time Frame: Dec 25, 2021 Roll Left & Right: 6 Sit to lyin Lying to sitting on side of be: 6 Sit to stand: 4 (SBA) Chair/auy-np-mfpbd transfer: 4 (SBA) Walk 10 feet: 4 (SBA) Walk 50 feet with two turns: 4 (SBA) Walk 150 feet: 4 (SBA) PT Detention Goals Eap Specialist Goals PT Detention Goals Time Frame: Jan 08, 2022 Roll Left & Right (QC): 6 Sit to Lying (QC): 6 Lying-Sitting on Side/Bed(QC): 6 Sit to Stand (QC): 6 Chair/Gpe-ux-Umtho Xfer(QC): 6 Toilet Transfer (QC): 6 Car Transfer (QC): 6 Does the Patient Walk: Yes Walk 10 feet (QC): 6 Walk 50ft with 2 Turns (QC): 6 Walk 150 ft (QC): 6 Walking 10ft on Uneven Surface: 6 1 Step (curb) (QC): 6 4 Steps (QC): 6 12 Steps (QC): 6 Picking up an Object (QC): 6 Wheel 50 feet with 2 turns (QC: 9 Wheel 150 feet: 9 PT Plan Problem List Problem List: Activity Tolerance Treatment/Plan Treatment Plan: Continue Plan of Care Treatment Plan: Education, Functional Activity Melo, Functional Strength, Group Therapy, Gait, Safety, Therapeutic Exercise, Transfers Treatment Duration: Jan 08, 2022 Frequency: At least 5 of 7 days/Wk (IRF) Estimated Hrs Per Day: 1.5 hours per day Patient and/or Family Agrees t: Yes Time/GCodes Time In: 900 Time Out: 925 Total Billed Treatment Time: 25 Total Billed Treatment 1, FA (10m) & GT (15m) ABBI YANEZ EDUCATIONAL CONSULTANT Dec 21, 2021 09:37
--- NOTE | 2021-12-21 13:34 | Diagnostic Imaging Report ---
INDICATION: Abdominal pain EXAMINATION: Acute abdominal series 12/21/2021. FINDINGS: Frontal chest with upright and supine imaging of the abdomen. There is a left-sided chest port with the tip just entering the right atrium. Heart and pulmonary vasculature normal. Lungs and pleural spaces clear with a tiny left effusion suspected. Minimal adjacent atelectasis is noted. There is no free air beneath diaphragm. Feeding tube noted in the left upper quadrant. There are findings of moderate constipation within the right colon and rectosigmoid. No obstructive process is appreciated. IMPRESSION: 1. Minimal left base atelectasis with a small left effusion 2. Nonobstructive bowel gas pattern with findings of moderate constipation. Dictated by: Dictated on workstation # [id number]
--- NOTE | 2021-12-21 14:16 | Consultation - Surgery ---
CHARLES MOULTON 12/21/21 1416: History of Present Illness History of Present Illness Patient Consulted On(teresa/time) 12/21/21 14:15 Date Seen by Provider: Dec 21, 2021 Time Seen by Provider: 14:15 History of Present Illness Consult requested by Dr. Lacy 76 yo male with history of esophageal cancer with widespread metastasis and s/p PEG tube placement complains of constant, diffuse, abd pain that started this afternoon. Pt states that his pain is a 10/10 and feels like "a knot" in his abd. Pt notes that he experienced one episode of emesis yesterday but denies any nausea or vomiting today. Pt's last bowel movement was 2 days ago but does state he is having flatus. Pt denies n/v, CP, SOB, and hematemesis Pt had an acute abd series on 12/21 that showed a non-obstructive bowel gas pattern with findings of moderate constipation as well as minimal left base atelectasis with a small left effusion. Allergies and Home Medications Allergies Coded Allergies: No Allergy Information Available (Unverified , 12/12/21) Patient Home Medication List Home Medication List Reviewed: Yes Acetaminophen (Acetaminophen) 650 Mg Supp.rect, 650 MG RC Q6H PRN for PAIN-MILD (1-4), (Reported) Entered as Reported by: MARGO GILLILAND on 12/18/21 1023 Last Action: Continued Acetaminophen (Arthritis Pain) 650 Mg Tablet.er, 650 MG PO Q6H PRN for PAIN-MILD (1-4), (Reported) Entered as Reported by: MARGO GILLILAND on 12/18/21 1023 Last Action: Continued Docusate Sodium (Docu Liquid) 50 Mg/5 Ml Liquid, 10 ML PO BID, (Reported) Entered as Reported by: MARGO GILLILAND on 12/18/21 1213 Last Action: Continued Ondansetron HCl (Ondansetron HCl) 4 Mg Tablet, 4 MG PO Q6H PRN for NAUSEA/VOMITING-1ST LINE, (Reported) Entered as Reported by: MARGO GILLILAND on 12/18/21 1023 Last Action: Converted Polyethylene Glycol 3350 (Miralax) 17 Gram Powd.pack, 17 GM PO DAILY, (Reported) Entered as Reported by: MARGO GILLILAND on 12/18/21 1023 Last Action: Continued Potassium Chloride (Potassium Chloride) 20 Meq Packet, 40 MEQ PO UD PRN for PER PROTOCOL, (Reported) Entered as Reported by: MARGO GILLILAND on 12/18/21 1238 Last Action: Converted Sodium Chloride (Sodium Chloride) 1 Gram Tab, 2 GM PEG QID, (Reported) Entered as Reported by: MARGO GILLILAND on 12/18/21 1023 Last Action: Continued [Ljkdcumih06/Bicarb] , 1 EACH FEEDING PRN PRN for TUBE FEED CLOG, (Reported) Entered as Reported by: MARGO GILLILAND on 12/18/21 1238 Last Action: Converted [Protonix Suspension] 40 SUSP, 40 MG PEG BID, (Reported) Entered as Reported by: MARGO GILLILAND on 12/18/21 1215 Last Action: Converted [Senokot Syrup] , 10 ML PEG DAILY, (Reported) Entered as Reported by: MARGO GILLILAND on 12/18/21 1023 Last Action: Converted Discontinued Medications Docusate Sodium (Docusate Sodium) 100 Mg Capsule, 100 MG PEG BID, (Reported) Discontinued Reason: Prescription changed Entered as Reported by: MARGO GILLILAND on 12/18/21 102 Last Action: New Order Past Xxpnrom-Huvsdv-Elycbv Hx Patient Social History Smoking Status: Former Smoker Alcohol Use?: No Have you traveled recently?: No Cardiovascular Cardiac Disorders: High Cholesterol Cancer Cancer: Esophageal Review of Systems-General Constitutional: No chills, No diaphoresis EENTM: No ear pain, No blurred vision Respiratory: No cough, No dyspnea on exertion Cardiovascular: No chest pain, No edema Gastrointestinal: abdominal pain (diffuse), constipation; No diarrhea, No hematemesis, No nausea, No vomiting Genitourinary: No discharge, No dysuria Musculoskeletal: No back pain, No gout Skin: No change in color, No change in hair/nails Psychiatric/Neurological: Denies Anxiety, Denies Depressed All Other Systems Reviewed Negative Unless Noted: Yes Physical Exam-General Problems Physical Exam Vital Signs Vital Signs - First Documented 12/18/21 12/18/21 15:30 16:36 Temp 37.5 Pulse 94 Resp 22 B/P (MAP) 116/71 (86) Pulse Ox 96 O2 Delivery Room Air Capillary Refill : General Appearance: no apparent distress, thin HEENT: PERRL/EOMI, normal ENT inspection Neck: supple, normal inspection Respiratory: normal breath sounds, no respiratory distress, no accessory muscle use Cardiovascular: regular rate, rhythm, no edema, no JVD Gastrointestinal: soft, tenderness (diffuse), other (Peg tube located in epigastric region) Back: normal inspection, no CVA tenderness Extremities: normal inspection, no pedal edema Neurologic/Psychiatric: alert, normal mood/affect Skin: warm/dry, other (port located on left chest ); No rash Lymphatic: no adenopathy Assessment/Plan Assessment/Plan Assessment/Plan Esophageal cancer with widespread metastasis Dysphagia Chronic pain Abdominal pain Constipation Hold tube feeds Acute abd series showed moderate constipation and a non-obstructive bowel gas pattern -- Continue bowel regimen and ambulation with PT IV fluids EDUARD SINGH DO 12/21/211906: History of Present Illness History of Present Illness History of Present Illness Consult requested by Dr. Lacy for abdominal pain Patient is 76-year-old male with esophageal cancer with metastasis. He had a PEG tube and port placed approximately 2 weeks ago. Patient states that he had pain in his abdomen started yesterday. Pain all over not like feeling. He states it is a 10 out of 10 currently all over his abdomen no radiation. Patient has had nausea and states he has had an episode of emesis. Patient's not taking p.o. He is using tube feeds. Patient tube feeds have been held currently. He is having flatus. He had abdominal x-ray which demonstrated nonobstructive bowel gas pattern with moderate constipation, and small left effusion. Allergies and Home Medications Allergies Coded Allergies: No Allergy Information Available (Unverified , 12/12/21) Patient Home Medication List Home Medication List Reviewed: Yes Acetaminophen (Acetaminophen) 650 Mg Supp.rect, 650 MG RC Q6H PRN for PAIN-MILD (1-4), (Reported) Entered as Reported by: MARGO GILLILAND on 12/18/21 1023 Last Action: Continued Acetaminophen (Arthritis Pain) 650 Mg Tablet.er, 650 MG PO Q6H PRN for PAIN-MILD (1-4), (Reported) Entered as Reported by: MARGO GILLILAND on 12/18/21 1023 Last Action: Continued Docusate Sodium (Docu Liquid) 50 Mg/5 Ml Liquid, 10 ML PO BID, (Reported) Entered as Reported by: MARGO GILLILAND on 12/18/211212 Last Action: Continued Ondansetron HCl (Ondansetron HCl) 4 Mg Tablet, 4 MG PO Q6H PRN for NAUSEA/VOMITING-1ST LINE, (Reported) Entered as Reported by: MARGO GILLILAND on 12/18/21 102 Last Action: Converted Polyethylene Glycol 3350 (Miralax) 17 Gram Powd.pack, 17 GM PO DAILY, (Reported) Entered as Reported by: MARGO GILLILAND on 12/18/211022 Last Action: Continued Potassium Chloride (Potassium Chloride) 20 Meq Packet, 40 MEQ PO UD PRN for PER PROTOCOL, (Reported) Entered as Reported by: MARGO GILLILAND on 12/18/21 123 Last Action: Converted Sodium Chloride (Sodium Chloride) 1 Gram Tab, 2 GM PEG QID, (Reported) Entered as Reported by: MARGO GILLILAND on 12/18/211022 Last Action: Continued [Qfemfyeul24/Bicarb] , 1 EACH FEEDING PRN PRN for TUBE FEED CLOG, (Reported) Entered as Reported by: MARGO GILLILAND on 12/18/211237 Last Action: Converted [Protonix Suspension] 40 SUSP, 40 MG PEG BID, (Reported) Entered as Reported by: MARGO GILLILAND on 12/18/211214 Last Action: Converted [Senokot Syrup] , 10 ML PEG DAILY, (Reported) Entered as Reported by: MARGO GILLILAND on 12/18/211022 Last Action: Converted Discontinued Medications Docusate Sodium (Docusate Sodium) 100 Mg Capsule, 100 MG PEG BID, (Reported) Discontinued Reason: Prescription changed Entered as Reported by: MARGO GILLILAND on 12/18/211022 Last Action: New Order Past Yyibapw-Tnirof-Ggkfil Hx Patient Social History Smoking Status: Former Smoker Surgeries History of Surgeries: Yes (port/peg) Surgeries: Orthopedic (foot) Reviewed Nursing Assessment Reviewed/Agree w Nursing PMH: Yes Family Medical History Significant Family History: No Pertinent Family Hx Review of Systems-General Constitutional: No chills, No diaphoresis EENTM: No ear pain, No blurred vision Respiratory: No cough, No dyspnea on exertion Cardiovascular: No edema Gastrointestinal: abdominal pain (diffuse), constipation; No diarrhea, No hematemesis; nausea, vomiting Genitourinary: No decreased output, No discharge Musculoskeletal: No back pain, No gout Skin: No change in color, No change in hair/nails Psychiatric/Neurological: Denies Anxiety, Denies Depressed All Other Systems Reviewed Negative Unless Noted: Yes Physical Exam-General Problems Physical Exam General Appearance: no apparent distress, thin HEENT: PERRL/EOMI, normal ENT inspection Neck: non-tender, supple Respiratory: chest non-tender, no respiratory distress, no accessory muscle use Cardiovascular: regular rate, rhythm, no JVD Gastrointestinal: soft, tenderness (diffuse gastrostomy tube luq) Back: normal inspection, no CVA tenderness Extremities: normal inspection, no pedal edema Neurologic/Psychiatric: alert, normal mood/affect, oriented x 3 Skin: normal color, warm/dry Lymphatic: no adenopathy Assessment/Plan Assessment/Plan Assessment/Plan Esophageal cancer with widespread metastasis Dysphagia Chronic pain Abdominal pain diffuse Constipation Hold tube feeds Acute abd series showed moderate constipation and a non-obstructive bowel gas pattern -- Continue bowel regimen and ambulation with PT Suppository IV fluids KUB in am Supervisory-Addendum Brief Verification & Attestation Participated in pt care: history, MDM, physical Personally performed: exam, history, MDM, supervision of care Care discussed with: Medical Student Procedures: n/a Results interpretation: Verified all documentation Verification and Attestation of Medical Student E/M Service A medical student performed and documented this service in my presence. I reviewed and verified all information documented by the medical student and made modifications to such information, when appropriate. I personally performed the physical exam and medical decision making. Eduard Singh Dec 21, 2021,19:07 CHARLES MOULTON Dec 21, 2021 14:16 EDUARD SINGH DO Dec 21, 2021 19:07
[2021-12-21] MEDS ORDERED: GLYCERIN ADULT SUPPOSITORY PR NR (16:00)
[2021-12-21] MEDS: NS IV 1000 ML 1,000 ML IV SCH (16:24)
[2021-12-21] MEDS: ACETAMINOPHEN ER 650 MG (TYLENOL ARTHRITIS) PO PRN (20:08)
[2021-12-21 20:27] VITALS: BP 145/86
[2021-12-22] MEDS: NS IV 1000 ML 1,000 ML IV SCH ×3 (01:49→21:28)
[2021-12-22] MEDS: KCL 20 MEQ TAB (K-DUR) PO SCH (02:53)
[2021-12-22 07:30] VITALS: BP 145/73
--- NOTE | 2021-12-22 07:38 | PM&R Progress Note ---
Subjective HPI/CC On Admission Date Seen by Provider: Dec 22, 2021 Time Seen by Provider: 12:00 Subjective/Events-last exam 12/22/2021: Patient doing the same Mag citrate ordered by Dr. Quintero Appreciate Dr. Quintero's assistance Supportive care will continue 12/21/2021: Patient having abdominal pain Constipation is likely an issue but could be ileus for esophageal cancer with obstruction We will check x-ray and consult Dr. Quintero 12/20/2021: Patient doing much better Fentanyl patch has made a huge difference No pain is reported right now Tolerating PEG tube feedings Minimal emesis 12/19/2021: Patient doing better except for the pain Starting fentanyl patch because extended release pills can't go through PEG tube Emesis at times which is an issue that occurred at [facility] Walking around pretty well Supportive care will continue Review of Systems General: Fatigue, Malaise Gastrointestinal: Constipation Objective Exam Vital Signs Vital Signs Date Time Temp Pulse Resp B/P (MAP) Pulse Ox O2 Delivery O2 Flow Rate FiO2 12/22/21 09:00 Room Air 12/22/21 07:30 36.8 79 18 145/73 (97) 96 Capillary Refill : General Appearance: No Apparent Distress, WD/WN, Chronically ill, Thin HEENT: PERRL/EOMI, Normal ENT Inspection, Pharynx Normal Neck: Full Range of Motion, Normal Inspection, Non Tender, Supple, Carotid Bruit Respiratory: Chest Non Tender, Lungs Clear, Normal Breath Sounds, No Accessory Muscle Use, No Respiratory Distress Cardiovascular: Regular Rate, Rhythm, No Edema, No Gallop, No JVD, No Murmur, Normal Peripheral Pulses Gastrointestinal: Normal Bowel Sounds, No Organomegaly, No Pulsatile Mass, Non Tender, Soft, Other (PEG tube in place) Back: Normal Inspection, No CVA Tenderness, No Vertebral Tenderness Extremity: Normal Capillary Refill, Normal Inspection, Normal Range of Motion, Non Tender, No Calf Tenderness, No Pedal Edema Neurologic/Psychiatric: Alert, Oriented x3, No Motor/Sensory Deficits, land planner II- XII Norm as Tested, Depressed Affect, Motor Weakness (Generalized) Skin: Normal Color, Warm/Dry Lymphatic: No Adenopathy Results/Procedures Lab Patient resulted labs reviewed. FIM Transfers Therapy Code Descriptions/Definitions Functional [place] Measure: 0=Not Assessed/NA 4=Minimal Assistance 1=Total Assistance 5=Supervision or Setup 2=Maximal Assistance 6=Modified [place] 3=Moderate Assistance 7=Complete IndependenceSCALE: Activities may be completed with or without assistive devices. 3-Dhjlsqxzod-svhegfb completes the activity by him/herself with no assistance from a helper. 5-Set-up or Clean-up Assistance-helper sets up or cleans up; patient completes activity. [place] assists only prior to or following the activity. 4-Supervision or Touching Assistance-helper provides verbal cues and/or touching/steadying and/or contact guard assistance as patient completes activity. Assistance may be provided throughout the activity or intermittently. 3-Partial/Moderate Assistance-helper does LESS THAN HALF the effort. [place] lifts, holds or supports trunk or limbs, but provides less than half the effort. 2-Substantial/Maximal Assistance-helper does MORE THAN HALF the effort. [place] lifts or holds trunk or limbs and provides more than half the effort. 7-Bjvrvlszb-niywge does ALL the effort. Patient does none of the effort to complete the activity. Or, the assistance of 2 or more helpers is required for the patient to complete the activity. If activity was not attempted, code reason: 7-Patient Refused. 9-Not Applicable-not attempted and the patient did not perform the activity before the current illness, exacerbation or injury. 10-Not Attempted due to Environmental Limitations-(lack of equipment, weather restraints, etc.). 88-Not Attempted due to Medical Conditions or Safety Concerns. Roll Left to Right (QC): 6 Sit to Lying (QC): 6 Sit to Stand (QC): 4 Chair/Rdq-nu-Nplus Xfer(QC): 4 Car Transfer (QC): 4 Gait Training Does the Patient Walk?: Yes Distance: 500' Walk 10 feet (QC): 5 Walk 50 ft with 2 Turns(QC): 5 Walk 150 ft (QC): 5 Walking 10ft/uneven surface-QC: 4 Gait Assistive Device: FWW Wheelchair Training Does the Pt Use a Wheelchair?: Yes Wheel 50 ft with 2 turns (QC): 4 Wheel 150 ft (QC): 4 Type of Wheelchair: Manual Stair Training #of Steps: 4 1 Step (curb) (QC): 4 4 Steps (QC): 4 12 Steps (QC): 88 Balance Picking up an Object (QC): 4 (CGA without using a highway administrative engineer) ADL-Treatment Eating (QC): 88 (PEG tube) Oral Hygiene (QC): 10 (Pt doesn't have dentures with him) Shower/Bathe Self (QC): 4 (SBA with sponge bath at recliner.) Upper Body Dressing (QC): 5 (set up with button up shirt.) Lower Body Dressing (QC): 4 (Supervision, pt able to thread BLEs and manage pant hike.) On/Off Footwear (QC): 3 Toileting Hygiene (QC): 6 (IND with clothing management) Assessment/Plan Assessment and Plan Assess & Plan/Chief Complaint Assessment: Debility Profound weight loss Esophageal cancer with widespread metastasis Dysphagia Chronic pain Hyperlipidemia Hyponatremia placed on fluid restriction Abdominal pain work-up in process 12/21/2021 Plan: Fluid restriction Supportive care Tube feedings PT and OT 12/19/2021: Add fentanyl patch Supportive care 12/20/2021: Continue fentanyl patch Monitor closely 12/21/2021: Consult Dr. Quintero Abdominal x-ray 12/22/2021: Mag citrate Aggressive bowel regimen (1) Debility CALVIN OVERTON DO Dec 22, 2021 07:38
--- NOTE | 2021-12-22 08:04 | Progress Note - Surgery ---
CHARLES MOULTON 12/22/21 0804: Subjective Date Seen by a Provider: Dec 22, 2021 Time Seen by a Provider: 08:00 Subjective/Events-last exam Pt is resting comfortably in bed. Pt states that his abd pain has improved from yesterday. Pt received a suppository yesterday for his constipation but has not had a bowel movement. Has had flatus. Pt denies any n/v, CP, SOB, and sweats. Pt had KUB on 12/22 that showed Nonspecific nonobstructive bowel gas pattern with findings of moderate constipation in the right colon. Review of Systems General: No Chills, No Night Sweats HEENT: No Head Aches, No Visual Changes Pulmonary: No Dyspnea, No Cough Cardiovascular: No: Chest Pain, Palpitations Gastrointestinal: No: Nausea, Vomiting Genitourinary: No Dysuria, No Frequency Musculoskeletal: No: neck pain, shoulder pain Neurological: No: Weakness, Numbness Objective Exam Vital Signs Date Time Temp Pulse Resp B/P (MAP) Pulse Ox O2 Delivery O2 Flow Rate FiO2 12/22/21 07:30 36.8 79 18 145/73 (97) 96 Room Air 12/21/21 20:40 Room Air 12/21/21 20:27 37.3 92 24 145/86 (105) 94 Room Air 12/21/21 09:00 Room Air I & O 12/22/21 07:00 Intake Total 1300 ml Output Total 1050 ml Balance 250 ml Capillary Refill : General Appearance: No Apparent Distress, WD/WN, Chronically ill, Thin HEENT: PERRL/EOMI, Normal ENT Inspection Neck: Normal Inspection, Supple Respiratory: No Accessory Muscle Use, No Respiratory Distress Cardiovascular: Regular Rate, Rhythm, No Edema Gastrointestinal: soft, tenderness (diffuse-improved; gastrostomy tube luq) Extremity: Normal Inspection, Non Tender, No Pedal Edema Neurologic/Psychiatric: Alert, Normal Mood/Affect Skin: Normal Color, Warm/Dry Lymphatic: No Adenopathy Assessment/Plan Assessment/Plan Assessment/Plan Esophageal cancer with widespread metastasis Dysphagia Chronic pain Abdominal pain diffuse Constipation Continue to Hold tube feeds KUB showed a non-obstructive bowel gas pattern and moderate constipation in the right colon. Continue bowel regimen and ambulation with PT IV fluids EDUARD QUINTERO DO 12/22/21 1120: Subjective Subjective/Events-last exam Less pain today. Had a couple bowel movements. NPO. KUB showing moderate constipation right colon. Denies n/v fever sweats chills shortness of breath or chest pain. Objective Exam General Appearance: No Apparent Distress, Chronically ill HEENT: PERRL/EOMI, Normal ENT Inspection Neck: Normal Inspection, Supple Respiratory: Chest Non Tender, No Accessory Muscle Use, No Respiratory Distress Cardiovascular: Regular Rate, Rhythm Gastrointestinal: soft, tenderness (diffuse-improved; gastrostomy tube luq) Extremity: Normal Inspection, Non Tender Neurologic/Psychiatric: Alert, Normal Mood/Affect Skin: Normal Color, Warm/Dry Lymphatic: No Adenopathy Assessment/Plan Assessment/Plan Assessment/Plan Esophageal cancer with widespread metastasis Dysphagia Chronic pain Abdominal pain diffuse Constipation Continue to Hold tube feeds KUB showed a non-obstructive bowel gas pattern and moderate constipation in the right colon. Continue bowel regimen and ambulation with PT will add a bottle of mag citrate today likely restart tube feeds tomorrow IV fluids Supervisory-Addendum Brief Verification & Attestation Participated in pt care: history, MDM, physical Personally performed: exam, history, MDM, supervision of care Care discussed with: Medical Student Procedures: n/a Results interpretation: Verified all documentation Verification and Attestation of Medical Student E/M Service A medical student performed and documented this service in my presence. I reviewed and verified all information documented by the medical student and made modifications to such information, when appropriate. I personally performed the physical exam and medical decision making. Eduard Quintero, Dec 22, 2021,11:20 CHARLES MOULTON Dec 22, 2021 08:04 EDUARD QUINTERO DO Dec 22, 2021 11:20
--- NOTE | 2021-12-22 08:29 | Diagnostic Imaging Report ---
INDICATION: Constipation. Followup. EXAMINATION: Abdomen 12/22/2021 FINDINGS: 2 views of the abdomen demonstrates scattered air and stool throughout the colon. Slightly dilated transverse colon noted with minimally prominent but small bowel loops in the left upper quadrant likely due to ileus. No obstructive process is seen. There are findings of constipation in the right colon. There is no free air. There is a feeding tube in the left upper quadrant. IMPRESSION: 1. Nonspecific nonobstructive bowel gas pattern with findings of moderate constipation in the right colon. Dictated by: Dictated on workstation # [id number]
[2021-12-22] MEDS: DOCUSATE SODIUM 10 MG/ML 10 ML UDC (COLACE) PO SCH ×2 (08:49→20:30)
[2021-12-22] MEDS: LACTULOSE SYRUP 10GM/15ML (ENULOSE) 30ML UDC PEG SCH (08:49)
[2021-12-22] MEDS: SODIUM CHLORIDE 1 GM TABLET PO SCH ×4 (08:49→20:30)
[2021-12-22] MEDS: polyethylene glycoL POWDER 17 GM (MIRALAX) PACK PO SCH (08:49)
[2021-12-22] MEDS: PANTOPRAZOLE 2 MG/ML LIQUID 200 ML (PROTONIX) PEG SCH ×6 (08:50→20:30)
[2021-12-22] MEDS: [UNRECOGNIZED DRUG - REMARK] TP SCH (11:46)
[2021-12-22] MEDS: fentaNYL PATCH 25 MCG (DURAGESIC) TD SCH (11:46)
[2021-12-22] MEDS ORDERED: MAGNESIUM CITRATE 300 ML BTL ONE (11:59)
[2021-12-22] MEDS: CATHETER FLUSH 10 ML SYR IVP SCH ×2 (13:13→21:41)
[2021-12-22 20:23] VITALS: BP 137/78
[2021-12-22] MEDS: ACETAMINOPHEN ER 650 MG (TYLENOL ARTHRITIS) PO PRN (20:34)
[2021-12-23] MEDS: KCL 20 MEQ TAB (K-DUR) PO SCH (05:47)
--- NOTE | 2021-12-23 05:52 | PM&R Progress Note ---
Subjective HPI/CC On Admission Date Seen by Provider: Dec 23, 2021 Time Seen by Provider: 09:30 Subjective/Events-last exam 12/23/2021: Multiple BM's noted after mag citrate at 1000pm No falls Pain controlled Fentanyl patch maintained 12/22/2021: Patient doing the same Mag citrate ordered by Dr. Quintero Appreciate Dr. Quintero's assistance Supportive care will continue 12/21/2021: Patient having abdominal pain Constipation is likely an issue but could be ileus for esophageal cancer with obstruction We will check x-ray and consult Dr. Quintero 12/20/2021: Patient doing much better Fentanyl patch has made a huge difference No pain is reported right now Tolerating PEG tube feedings Minimal emesis 12/19/2021: Patient doing better except for the pain Starting fentanyl patch because extended release pills can't go through PEG tube Emesis at times which is an issue that occurred at [facility] Walking around pretty well Supportive care will continue Review of Systems General: Fatigue, Malaise Gastrointestinal: Constipation Objective Exam Vital Signs Vital Signs Date Time Temp Pulse Resp B/P (MAP) Pulse Ox O2 Delivery O2 Flow Rate FiO2 12/23/21 21:00 36.7 93 20 132/78 (96) 95 Room Air Capillary Refill : General Appearance: No Apparent Distress, WD/WN, Chronically ill, Thin HEENT: PERRL/EOMI, Normal ENT Inspection, Pharynx Normal Neck: Full Range of Motion, Normal Inspection, Non Tender, Supple, Carotid Bruit Respiratory: Chest Non Tender, Lungs Clear, Normal Breath Sounds, No Accessory Muscle Use, No Respiratory Distress Cardiovascular: Regular Rate, Rhythm, No Edema, No Gallop, No JVD, No Murmur, Normal Peripheral Pulses Gastrointestinal: Normal Bowel Sounds, No Organomegaly, No Pulsatile Mass, Non Tender, Soft, Other (PEG tube in place) Back: Normal Inspection, No CVA Tenderness, No Vertebral Tenderness Extremity: Normal Capillary Refill, Normal Inspection, Normal Range of Motion, Non Tender, No Calf Tenderness, No Pedal Edema Neurologic/Psychiatric: Alert, Oriented x3, No Motor/Sensory Deficits, overseamer II- XII Norm as Tested, Depressed Affect, Motor Weakness (Generalized) Skin: Normal Color, Warm/Dry Lymphatic: No Adenopathy Results/Procedures Lab Laboratory Tests 12/23/21 06:25 Patient resulted labs reviewed. FIM Transfers Therapy Code Descriptions/Definitions Functional [place] Measure: 0=Not Assessed/NA 4=Minimal Assistance 1=Total Assistance 5=Supervision or Setup 2=Maximal Assistance 6=Modified [place] 3=Moderate Assistance 7=Complete IndependenceSCALE: Activities may be completed with or without assistive devices. 3-Jujkgasbtz-sifpdyk completes the activity by him/herself with no assistance from a helper. 5-Set-up or Clean-up Assistance-helper sets up or cleans up; patient completes activity. [place] assists only prior to or following the activity. 4-Supervision or Touching Assistance-helper provides verbal cues and/or touching/steadying and/or contact guard assistance as patient completes activity. Assistance may be provided throughout the activity or intermittently. 3-Partial/Moderate Assistance-helper does LESS THAN HALF the effort. [place] lifts, holds or supports trunk or limbs, but provides less than half the effort. 2-Substantial/Maximal Assistance-helper does MORE THAN HALF the effort. [place] lifts or holds trunk or limbs and provides more than half the effort. 5-Gffezfxap-zzvgxj does ALL the effort. Patient does none of the effort to complete the activity. Or, the assistance of 2 or more helpers is required for the patient to complete the activity. If activity was not attempted, code reason: 7-Patient Refused. 9-Not Applicable-not attempted and the patient did not perform the activity before the current illness, exacerbation or injury. 10-Not Attempted due to Environmental Limitations-(lack of equipment, weather restraints, etc.). 88-Not Attempted due to Medical Conditions or Safety Concerns. Roll Left to Right (QC): 6 Sit to Lying (QC): 6 Sit to Stand (QC): 4 Chair/Msm-xd-Gcnpt Xfer(QC): 4 Car Transfer (QC): 4 Gait Training Does the Patient Walk?: Yes Distance: 500' Walk 10 feet (QC): 5 Walk 50 ft with 2 Turns(QC): 5 Walk 150 ft (QC): 5 Walking 10ft/uneven surface-QC: 4 Gait Assistive Device: FWW Wheelchair Training Does the Pt Use a Wheelchair?: Yes Wheel 50 ft with 2 turns (QC): 4 Wheel 150 ft (QC): 4 Type of Wheelchair: Manual Stair Training #of Steps: 4 1 Step (curb) (QC): 4 4 Steps (QC): 4 12 Steps (QC): 88 Balance Picking up an Object (QC): 4 (CGA without using a caseworker protective services) ADL-Treatment Eating (QC): 88 (PEG tube) Oral Hygiene (QC): 10 (Pt doesn't have dentures with him) Shower/Bathe Self (QC): 4 (SBA with sponge bath at recliner.) Upper Body Dressing (QC): 5 (set up with button up shirt.) Lower Body Dressing (QC): 4 (Supervision, pt able to thread BLEs and manage pant hike.) On/Off Footwear (QC): 3 Toileting Hygiene (QC): 6 (IND with clothing management) Assessment/Plan Assessment and Plan Assess & Plan/Chief Complaint Assessment: Debility Profound weight loss Esophageal cancer with widespread metastasis Dysphagia Chronic pain Hyperlipidemia Hyponatremia placed on fluid restriction Abdominal pain work-up in process 12/21/2021 dx with narcotic bowel and now resolved and maintained on bowel regimen Plan: Fluid restriction Supportive care Tube feedings PT and OT 12/19/2021: Add fentanyl patch Supportive care 12/20/2021: Continue fentanyl patch Monitor closely 12/21/2021: Consult Dr. Quintero Abdominal x-ray 12/22/2021: Mag citrate Aggressive bowel regimen 12/23/2021: Continue laxatives Monitor closely (1) Debility CALVIN OVERTON DO Dec 23, 2021 05:52
[2021-12-23 06:42] LABS: BASOPHILS % (AUTO) 0 % (0-10); EOSINOPHILS # (AUTO) 0.1 10^3/uL (0.0-0.3); EOSINOPHILS % (AUTO) 1 % (0-10); HEMATOCRIT 29 % (40-54); HEMOGLOBIN 9.2 g/dL (13.3-17.7); LYMPHOCYTES # (AUTO) 0.9 10^3/uL (1.0-4.0); LYMPHOCYTES % (AUTO) 13 % (12-44); MEAN CORPUSCULAR HEMOGLOBIN 28 pg (25-34); MEAN CORPUSCULAR HGB CONC 32 g/dL (32-36); MEAN CORPUSCULAR VOLUME 87 fL (80-99); MEAN PLATELET VOLUME 8.8 fL (9.0-12.2); MONOCYTES # (AUTO) 0.5 10^3/uL (0.0-1.0); MONOCYTES % (AUTO) 7 % (0-12); NEUTROPHILS # (AUTO) 5.3 10^3/uL (1.8-7.8); NEUTROPHILS % (AUTO) 78 % (42-75); PLATELET COUNT 405 10^3/uL (130-400); WHITE BLOOD COUNT 6.9 10^3/uL (4.3-11.0)
[2021-12-23 07:00] LABS: ALBUMIN 2.5 GM/DL (3.2-4.5)
[2021-12-23 07:02] LABS: CALCIUM 7.8 MG/DL (8.5-10.1)
[2021-12-23 07:03] LABS: TOTAL PROTEIN 5.4 GM/DL (6.4-8.2)
[2021-12-23 07:05] LABS: BILIRUBIN,TOTAL 0.3 MG/DL (0.1-1.0)
[2021-12-23 07:07] LABS: CREATININE SERUM 0.74 MG/DL (0.60-1.30)
--- NOTE | 2021-12-23 07:42 | Progress Note - Surgery ---
ALEXX LAFLEUR 12/23/21 0742: Subjective Date Seen by a Provider: Dec 23, 2021 Time Seen by a Provider: 07:37 Subjective/Events-last exam Patient watching tv in bed this morning. States he was able to have bowel movements since yesterday. Denies any abdominal discomfort. Denies nausea or vomiting. Denies any fever, chills, or shortness of breath at this time. Objective Exam Vital Signs Date Time Temp Pulse Resp B/P (MAP) Pulse Ox O2 Delivery O2 Flow Rate FiO2 12/22/21 20:40 Room Air 12/22/21 20:23 37.0 93 22 137/78 (97) 96 Room Air 12/22/21 09:00 Room Air I & O 12/23/21 07:00 Intake Total 1850 ml Output Total 650 ml Balance 1200 ml Capillary Refill : General Appearance: No Apparent Distress, WD/WN, Chronically ill, Thin HEENT: PERRL/EOMI, Normal ENT Inspection, Pharynx Normal Neck: Full Range of Motion, Normal Inspection, Non Tender, Supple, Carotid B ruit Respiratory: Chest Non Tender, Lungs Clear, Normal Breath Sounds, No Accessory Muscle Use, No Respiratory Distress Cardiovascular: Regular Rate, Rhythm, No Edema, No Gallop, No JVD, No Murmur, Normal Peripheral Pulses Gastrointestinal: soft, tenderness (diffuse-improved; gastrostomy tube luq) Extremity: Normal Capillary Refill, Normal Inspection, Normal Range of Motion, Non Tender, No Calf Tenderness, No Pedal Edema Neurologic/Psychiatric: Alert, Oriented x3, No Motor/Sensory Deficits, production control analyst II- XII Norm as Tested, Depressed Affect, Motor Weakness (Generalized) Skin: Normal Color, Warm/Dry Lymphatic: No Adenopathy Results Lab Laboratory Tests 12/23/21 06:25: White Blood Count 6.9, Red Blood Count 3.30L, Hemoglobin 9.2L, Hematocrit 29L, Mean Corpuscular Volume 87, Mean Corpuscular Hemoglobin 28, Mean Corpuscular Hemoglobin Concent 32, Red Cell Distribution Width 14.6H, Platelet Count 405H, Mean Platelet Volume 8.8L, Immature Granulocyte % (Auto) 1, Neutrophils (%) (Auto) 78H, Lymphocytes (%) (Auto) 13, Monocytes (%) (Auto) 7, Eosinophils (%) (Auto) 1, Basophils (%) (Auto) 0, Neutrophils # (Auto) 5.3, Lymphocytes # (Auto) 0.9L, Monocytes # (Auto) 0.5, Eosinophils # (Auto) 0.1, Basophils # (Auto) 0.0, Immature Granulocyte # (Auto) 0.0, Sodium Level 132L, Potassium Level 4.0, Chloride Level 99, Carbon Dioxide Level 21, Anion Gap 12, Blood Urea Nitrogen 11, Creatinine 0.74, Estimat Glomerular Filtration Rate 95, BUN/Creatinine Ratio 15, Glucose Level 73, Calcium Level 7.8L, Corrected Calcium 9.0, Total Bilirubin 0.3, Aspartate Amino Transf (AST/SGOT) 34, Alanine Aminotransferase (ALT/SGPT) 18, Alkaline Phosphatase 81, Total Protein 5.4L, Albumin 2.5L Assessment/Plan Assessment/Plan Assessment/Plan Esophageal cancer with widespread metastasis Dysphagia Chronic pain Abdominal pain diffuse Constipation Continue bowel regimen and ambulation with PT will add a bottle of mag citrate likely restart tube feeds IV fluids EDUARD QUINTERO DO 12/23/212013: Subjective Subjective/Events-last exam Patient states that he has had some small bowel movements since yesterday. He does not have any significant abdominal discomfort at this time. He denies any nausea or vomiting. No new complaints. Denies any fever sweats chills shortness of breath or chest pain. Objective Exam General Appearance: No Apparent Distress, Chronically ill HEENT: PERRL/EOMI, Normal ENT Inspection Neck: Full Range of Motion, Non Tender Respiratory: Chest Non Tender, No Accessory Muscle Use, No Respiratory Distress Cardiovascular: Regular Rate, Rhythm, No JVD Gastrointestinal: soft, tenderness (diffuse-improved; gastrostomy tube luq) Extremity: Normal Inspection, Normal Range of Motion Neurologic/Psychiatric: Alert, Oriented x3, Depressed Affect, Motor Weakness (Generalized) Skin: Normal Color, Warm/Dry Lymphatic: No Adenopathy Assessment/Plan Assessment/Plan Assessment/Plan Esophageal cancer with widespread metastasis Dysphagia Chronic pain Abdominal pain diffuse Constipation Continue bowel regimen and ambulation with PT likely restart tube feeds tomorrow if feeling well and KUB tomorrow good. IV fluids Supervisory-Addendum Brief Verification & Attestation Participated in pt care: history, MDM, physical Personally performed: exam, history, MDM, supervision of care Care discussed with: Medical Student Procedures: n/a Results interpretation: Verified all documentation Verification and Attestation of Medical Student E/M Service A medical student performed and documented this service in my presence. I reviewed and verified all information documented by the medical student and made modifications to such information, when appropriate. I personally performed the physical exam and medical decision making. Eduard Quintero, Dec 23, 2021,20:13 ALEXX LAFLEUR Dec 23, 2021 07:42 EDUARD QUINTERO DO Dec 23, 2021 20:14
[2021-12-23 07:49] VITALS: BP 139/76
--- NOTE | 2021-12-23 09:01 | Physical Therapy Daily Note ---
PT Daily Note-Current Subjective Pt sitting up in bed upon arrival. Pt agrees to PT. Pt reports abdominal discomfort is a little better today since having BMs yesterday. Mental Status Patient Orientation: Person, Place, Time, Situation Attachments: IV Transfers SCALE: Activities may be completed with or without assistive devices. 4-Rquvinsbxc-eidzwgb completes the activity by him/herself with no assistance from a helper. 5-Set-up or Clean-up Assistance-helper sets up or cleans up; patient completes activity. [place] assists only prior to or following the activity. 4-Supervision or Touching Assistance-helper provides verbal cues and/or touching/steadying and/or contact guard assistance as patient completes activity. Assistance may be provided throughout the activity or intermittently. 3-Partial/Moderate Assistance-helper does LESS THAN HALF the effort. [place] lifts, holds or supports trunk or limbs, but provides less than half the effort. 2-Substantial/Maximal Assistance-helper does MORE THAN HALF the effort. [place] lifts or holds trunk or limbs and provides more than half the effort. 8-Codaxsbwl-cdbgxb does ALL the effort. Patient does none of the effort to complete the activity. Or, the assistance of 2 or more helpers is required for the patient to complete the activity. If activity was not attempted, code reason: 7-Patient Refused. 9-Not Applicable-not attempted and the patient did not perform the activity before the current illness, exacerbation or injury. 10-Not Attempted due to Environmental Limitations-(lack of equipment, weather restraints, etc.). 88-Not Attempted due to Medical Conditions or Safety Concerns. Sit to Lying (QC): 5 Lying to Sitting/Side of Bed(Q: 5 Sit to Stand (QC): 5 Weight Bearing Full Weight Bearing Full Weight Bearing Gait Training Does the Patient Walk?: Yes Distance: 500', 150' Walk 10 feet (QC): 5 Walk 50 ft with 2 Turns(QC): 5 Walk 150 ft (QC): 5 Gait Persons Needed: 1 Gait Assistive Device: FWW Exercises NuStep Minutes: 15 NuStep Workload: 5 Treatments TF to EOB then stands. Pt declines need for BR then amb. in hallway. Pt takes RB as needed then uses NuStep followed by short RB. Pt returns to room to use BR then rest in recliner. All needs met, call light in hand. Assessment Current Status: Good Progress Pt takes RB as needed. Pt is improving with TF and mobility. PT Short Term Goals Short Term Goals Time Frame: Dec 25, 2021 Roll Left & Right: 6 Sit to lyin Lying to sitting on side of be: 6 Sit to stand: 4 (SBA) Chair/zml-bx-dnisc transfer: 4 (SBA) Walk 10 feet: 4 (SBA) Walk 50 feet with two turns: 4 (SBA) Walk 150 feet: 4 (SBA) PT Medical Oncologist Goals Medical Oncologist Goals PT Skilled Nursing Goals Time Frame: Jan 08, 2022 Roll Left & Right (QC): 6 Sit to Lying (QC): 6 Lying-Sitting on Side/Bed(QC): 6 Sit to Stand (QC): 6 Chair/Mcv-lx-Hvudh Xfer(QC): 6 Toilet Transfer (QC): 6 Car Transfer (QC): 6 Does the Patient Walk: Yes Walk 10 feet (QC): 6 Walk 50ft with 2 Turns (QC): 6 Walk 150 ft (QC): 6 Walking 10ft on Uneven Surface: 6 1 Step (curb) (QC): 6 4 Steps (QC): 6 12 Steps (QC): 6 Picking up an Object (QC): 6 Wheel 50 feet with 2 turns (QC: 9 Wheel 150 feet: 9 PT Plan Problem List Problem List: Activity Tolerance Treatment/Plan Treatment Plan: Continue Plan of Care Treatment Plan: Education, Functional Activity Melo, Functional Strength, Group Therapy, Gait, Safety, Therapeutic Exercise, Transfers Treatment Duration: Jan 08, 2022 Frequency: At least 5 of 7 days/Wk (IRF) Estimated Hrs Per Day: 1.5 hours per day Patient and/or Family Agrees t: Yes Safety Risks/Education Patient Education: Transfer Techniques, Correct Positioning Teaching Recipient: Patient Teaching Methods: Discussion Response to Teaching: Verbalize Understanding Time/GCodes Time In: 800 Time Out: 900 Total Billed Treatment Time: 60 Total Billed Treatment 1, GT x2 (30m), EX (15m) & FA (15m) ABBI YANEZ SLP TEACHER Dec 23, 2021 09:01
[2021-12-23] MEDS: NS IV 1000 ML 1,000 ML IV SCH ×2 (09:39→18:47)
[2021-12-23] MEDS: LACTULOSE SYRUP 10GM/15ML (ENULOSE) 30ML UDC PEG SCH (09:40)
[2021-12-23] MEDS: SODIUM CHLORIDE 1 GM TABLET PO SCH ×4 (09:40→19:54)
[2021-12-23] MEDS: polyethylene glycoL POWDER 17 GM (MIRALAX) PACK PO SCH (09:40)
[2021-12-23] MEDS: DOCUSATE SODIUM 10 MG/ML 10 ML UDC (COLACE) PO SCH ×2 (09:40→19:54)
[2021-12-23] MEDS: PANTOPRAZOLE 2 MG/ML LIQUID 200 ML (PROTONIX) PEG SCH ×6 (09:59→19:55)
[2021-12-23] MEDS ORDERED: ATOR20TA66 PO (10:44)
[2021-12-23] MEDS ORDERED: ACET-3075 PO (10:45)
--- NOTE | 2021-12-23 11:45 | Occupational Ther Daily Note ---
OT Current Status-Daily Note Subjective Pt in bed, agreeable to OT Tx. Mental Status/Objective Attachments: IV ADL-Treatment Therapy Code Descriptions/Definitions Functional [place] Measure: 0=Not Assessed/NA 4=Minimal Assistance 1=Total Assistance 5=Supervision or Setup 2=Maximal Assistance 6=Modified [place] 3=Moderate Assistance 7=Complete IndependenceSCALE: Activities may be completed with or without assistive devices. 8-Toixxymrdh-tatriee completes the activity by him/herself with no assistance from a helper. 5-Set-up or Clean-up Assistance-helper sets up or cleans up; patient completes activity. [place] assists only prior to or following the activity. 4-Supervision or Touching Assistance-helper provides verbal cues and/or touching/steadying and/or contact guard assistance as patient completes activity. Assistance may be provided throughout the activity or intermittently. 3-Partial/Moderate Assistance-helper does LESS THAN HALF the effort. [place] lifts, holds or supports trunk or limbs, but provides less than half the effort. 2-Substantial/Maximal Assistance-helper does MORE THAN HALF the effort. [place] lifts or holds trunk or limbs and provides more than half the effort. 7-Iffjvuavl-rrovtn does ALL the effort. Patient does none of the effort to complete the activity. Or, the assistance of 2 or more helpers is required for the patient to complete the activity. If activity was not attempted, code reason: 7-Patient Refused. 9-Not Applicable-not attempted and the patient did not perform the activity before the current illness, exacerbation or injury. 10-Not Attempted due to Environmental Limitations-(lack of equipment, weather restraints, etc.). 88-Not Attempted due to Medical Conditions or Safety Concerns. Toileting Hygiene (QC): 6 (IND) Other Treatment Pt in bed, agreeable to OT Tx. Pt used FWW in room to transfer into bathroom. He completed toileting, then used FWW to perform functional mobility to therapy gym. OT tx focused on increasing BUE Strength and activity tolerance. He completed arm bike x15 mins, 20 Watt resistance, no rest breaks. He then completed nut/bolt block with 2lb wrist weights bilaterally, completing x16 nut/bolts. Pt returned to his room, SBA using FWW, OT managed IV pole. Pt transferred to bed. Post tx, pt in bed, call light in reach and all needs met. Education OT Patient Education: Correct positioning, Energy conservation, Exercise program, Modified ADL techniques, Progress toward Goal/Update tx plan, Purpose of tx/functional activities, Rehab process Teaching Recipient: Patient Teaching Methods: Discussion Response to Teaching: Verbalize Understanding OT Short Term Goals Short Term Goals Time Frame: Dec 25, 2021 Eatin Oral hygiene: 4 Toileting hygiene: 5 Shower/bathe self: 3 Upper body dressin Lower body dressin Putting on/taking off footwear: 4 OT Care Home Goals Care Home Goals Time Frame: Dec 31, 2021 Eating (QC): 88 Oral Hygiene (QC): 5 Toileting Hygiene (QC): 6 Shower/Bathe Self (QC): 5 Upper Body Dressing (QC): 6 Lower Body Dressing (QC): 6 On/Off Footwear (QC): 6 1=Demonstrate adherence to instructed precautions during ADL tasks. 2=Patient will verbalize/demonstrate understanding of assistive devices/modifications for ADL. 3=Patient will improve strength/tolerance for activity to enable patient to perform ADL's. OT Education/Plan Problem List/Assessment Assessment: Decreased Activ Tolerance, Decreased UE Strength, Impaired Funct Balance, Impaired I ADL's, Impaired Self-Care Skills Discharge Recommendations Plan/Recommendations: Continue POC Treatment Plan/Plan of Care Patient would benefit from OT for education, treatment and training to promote independence in ADL's, mobility, safety and/or upper extremity function for ADL's. Plan of Care: ADL Retraining, Concurrent Therapy, Functional Mobility, Group Exercise/Act as Ind, UE Funct Exercise/Act Treatment Duration: Dec 31, 2021 Frequency: At least 5 of 7 days/Wk (IRF) Estimated Hrs Per Day: 1.5 hours per day (75-90 min/day ) Agreement: Yes Rehab Potential: Guarded Time/GCodes Start Time: 11:00 Stop Time: 12:00 Total Time Billed (hr/min): 60 Billed Treatment Time 1, ADL (15'), EX (15'), FA 2 (30') FRANCINE DUEÑAS OT Dec 23, 2021 11:45
--- NOTE | 2021-12-23 12:30 | Speech Therapy Daily Note ---
Speech Daily Progress Note Subjective Date Seen by Provider: Dec 23, 2021 Time Seen by Provider: 12:30 The patient was seated upright in bed, awake and alert upon entrance to the patient's room by the clinician. The patient greeted the clinician appropriately and was agreeable to participation in the cognitive linguistic and dysphagia treatment session. Objective The patient remains independently oriented to self, location, month, day of the week, date, and year. The patient accurately follows simple, one-step commands without direct modeling throughout dysphagia therapy exercises on this date. The patient stated he has continued ice chip intake sparingly and denied overt s/s of suspected aspiration. To note, the patient does display a "wet" vocal quality versus glottal jose at baseline. The patient consumes ice chips throughout the session, completing effortful swallow exercises. Overt s/s of suspected aspiration were not displayed. The clinician introduced an effortful swallow and Ember exercise for continued pharyngeal and base of tongue stren gthening. The patient completed each exercise with high accuracy. The clinician encouraged the patient to complete each exercise with ten repetitions, three times per day. The patient continues to state he is not comfortable attempting any additional P.O. consistencies, including water. Assessment Assessment Current Status: Fair Progress Treatment Plan Continue Plan of Care Speech Short Term Goals Short Term Goals Short Term Goals 1. The patient will demonstrate 80% accuracy with memory exercises with mild clinician verbal cueing. 2. The patient will follow safe swallowing strategies with 90% accuracy, independently. Time Frame-STG: One Week. Speech Residential Sales Associate Goals Long-Term Goals 1. The patient will demonstrate improved cognitive linguistic function for safe discharge to the least restrictive environment. 2. The patient will tolerate the least restrictive diet consistency without s/s of suspected aspiration. Time Frame: Ten Days. Speech-Plan Treatment Plan Speech Therapy Treatment Plan: Continue Plan of Care Treatment Duration: Dec 19, 2021 Frequency: Modified Program (IRF) Estimated Hrs Per Day: Other Rehab Potential: Guarded Safety Risks/Education Teaching Recipient: Patient Teaching Methods: Demonstration, Discussion Response to Teaching: Verbalize Understanding, Return Demonstration Education Topics Provided: Dysphagia Exercises Time Speech Therapy Time In: 12:30 Speech Therapy Time Out: 13:00 Total Billed Time: 30 Billed Treatment Time 1ANA SLTS LOY, ELIZABETH ST Dec 23, 2021 12:30
--- NOTE | 2021-12-23 14:34 | Therapy Group Daily Note ---
Therapy Daily Group Note Patient Education Topic Exercises, Other List Below (Pain Management) Exercises LE Seated Exercise, UE Exercise Session Ratio (pt:therapist): 3:1 Goal of Session: Education on ARU Expectations, UE/LE Strengthing, Other (list) (Pain Management) Goal Met for this Session: Yes Pt Benefit of Group: Contributions to Others, F/U Use of Strategies @Home, Increased Functional Safety, Increased Functional Strength, Improved Cognition, Recognition of Peers, Socialization Other/Notes Pt ambulated using FWW to [facility] for OT/PT group. Group consisted of introductions (name, place living), socialization, B UE/LE seated exercises, education on pain management and exercise. Pt introduced self appropriately and actively listened to peers. Pt tolerated B UE/LE seated exercises. Pt acknowledged understanding of educational topics by engaging in conversation, giving personal examples and actively listening to topic. After therapy, pt sitting in recliner with call light/phone in reach. All needs met in room. Start Time: 13:00 Stop Time: 14:00 Total Billed Treatment Time: 60 Total Billed Treatment 1, RODRIGUEZ EMANUELABBI GARCIA LEAD NEURODIAGNOSTIC TECHNOLOGIST Dec 23, 2021 14:34
[2021-12-23] MEDS: CATHETER FLUSH 10 ML SYR IVP SCH ×3 (14:35→19:27)
[2021-12-23] MEDS: ACETAMINOPHEN ER 650 MG (TYLENOL ARTHRITIS) PO PRN (19:54)
[2021-12-23 21:00] VITALS: BP 132/78
[2021-12-24] MEDS: ACETAMINOPHEN ER 650 MG (TYLENOL ARTHRITIS) PO PRN ×4 (01:46→21:02)
[2021-12-24] MEDS: NS IV 1000 ML 1,000 ML IV SCH ×3 (04:30→23:58)
[2021-12-24] MEDS: CATHETER FLUSH 10 ML SYR IVP SCH ×3 (04:32→21:15)
[2021-12-24] MEDS: KCL 20 MEQ TAB (K-DUR) PO SCH (06:07)
--- NOTE | 2021-12-24 06:48 | PM&R Progress Note ---
Subjective HPI/CC On Admission Date Seen by Provider: Dec 24, 2021 Time Seen by Provider: 09:00 Subjective/Events-last exam 12/24/2021: Still constipated Loose stools going around the constipation area in the colon Monitor closely 12/23/2021: Multiple BM's noted after mag citrate at 1000pm No falls Pain controlled Fentanyl patch maintained 12/22/2021: Patient doing the same Mag citrate ordered by Dr. Quintero Appreciate Dr. Quintero's assistance Supportive care will continue 12/21/2021: Patient having abdominal pain Constipation is likely an issue but could be ileus for esophageal cancer with obstruction We will check x-ray and consult Dr. Quintero 12/20/2021: Patient doing much better Fentanyl patch has made a huge difference No pain is reported right now Tolerating PEG tube feedings Minimal emesis 12/19/2021: Patient doing better except for the pain Starting fentanyl patch because extended release pills can't go through PEG tube Emesis at times which is an issue that occurred at [facility] Walking around pretty well Supportive care will continue Review of Systems General: Fatigue, Malaise Objective Exam Vital Signs Vital Signs Date Time Temp Pulse Resp B/P (MAP) Pulse Ox O2 Delivery O2 Flow Rate FiO2 12/24/21 21:15 Room Air 12/24/21 20:32 37.0 81 20 147/80 (102) 95 Capillary Refill : General Appearance: No Apparent Distress, WD/WN, Chronically ill, Thin HEENT: PERRL/EOMI, Normal ENT Inspection, Pharynx Normal Neck: Full Range of Motion, Normal Inspection, Non Tender, Supple, Carotid Bruit Respiratory: Chest Non Tender, Lungs Clear, Normal Breath Sounds, No Accessory Muscle Use, No Respiratory Distress Cardiovascular: Regular Rate, Rhythm, No Edema, No Gallop, No JVD, No Murmur, Normal Peripheral Pulses Gastrointestinal: Normal Bowel Sounds, No Organomegaly, No Pulsatile Mass, Non Tender, Soft, Other (PEG tube in place) Back: Normal Inspection, No CVA Tenderness, No Vertebral Tenderness Extremity: Normal Capillary Refill, Normal Inspection, Normal Range of Motion, Non Tender, No Calf Tenderness, No Pedal Edema Neurologic/Psychiatric: Alert, Oriented x3, No Motor/Sensory Deficits, environmental services director II- XII Norm as Tested, Depressed Affect, Motor Weakness (Generalized) Skin: Normal Color, Warm/Dry Lymphatic: No Adenopathy Results/Procedures Lab Patient resulted labs reviewed. FIM Transfers Therapy Code Descriptions/Definitions Functional [place] Measure: 0=Not Assessed/NA 4=Minimal Assistance 1=Total Assistance 5=Supervision or Setup 2=Maximal Assistance 6=Modified [place] 3=Moderate Assistance 7=Complete IndependenceSCALE: Activities may be completed with or without assistive devices. 8-Uzgamghhls-imqfwov completes the activity by him/herself with no assistance from a helper. 5-Set-up or Clean-up Assistance-helper sets up or cleans up; patient completes activity. [place] assists only prior to or following the activity. 4-Supervision or Touching Assistance-helper provides verbal cues and/or touching/steadying and/or contact guard assistance as patient completes activity. Assistance may be provided throughout the activity or intermittently. 3-Partial/Moderate Assistance-helper does LESS THAN HALF the effort. [place] lifts, holds or supports trunk or limbs, but provides less than half the effort. 2-Substantial/Maximal Assistance-helper does MORE THAN HALF the effort. [place] lifts or holds trunk or limbs and provides more than half the effort. 9-Okdcqfmgh-iggmai does ALL the effort. Patient does none of the effort to complete the activity. Or, the assistance of 2 or more helpers is required for the patient to complete the activity. If activity was not attempted, code reason: 7-Patient Refused. 9-Not Applicable-not attempted and the patient did not perform the activity before the current illness, exacerbation or injury. 10-Not Attempted due to Environmental Limitations-(lack of equipment, weather restraints, etc.). 88-Not Attempted due to Medical Conditions or Safety Concerns. Roll Left to Right (QC): 6 Sit to Lying (QC): 5 Sit to Stand (QC): 5 Chair/Opu-nq-Oborc Xfer(QC): 4 Car Transfer (QC): 4 Gait Training Does the Patient Walk?: Yes Distance: 500', 150' Walk 10 feet (QC): 5 Walk 50 ft with 2 Turns(QC): 5 Walk 150 ft (QC): 5 Walking 10ft/uneven surface-QC: 4 Gait Persons Needed: 1 Gait Assistive Device: FWW Wheelchair Training Does the Pt Use a Wheelchair?: Yes Wheel 50 ft with 2 turns (QC): 4 Wheel 150 ft (QC): 4 Type of Wheelchair: Manual Stair Training #of Steps: 4 1 Step (curb) (QC): 4 4 Steps (QC): 4 12 Steps (QC): 88 Balance Picking up an Object (QC): 4 (CGA without using a physician anesthesiologist) ADL-Treatment Eating (QC): 88 (PEG tube) Oral Hygiene (QC): 10 (Pt doesn't have dentures with him) Shower/Bathe Self (QC): 4 (SBA with sponge bath at recliner.) Upper Body Dressing (QC): 5 (set up with button up shirt.) Lower Body Dressing (QC): 4 (Supervision, pt able to thread BLEs and manage pant hike.) On/Off Footwear (QC): 3 Toileting Hygiene (QC): 6 (IND) Assessment/Plan Assessment and Plan Assess & Plan/Chief Complaint Assessment: Debility Profound weight loss Esophageal cancer with widespread metastasis Dysphagia Chronic pain Hyperlipidemia Hyponatremia placed on fluid restriction Abdominal pain work-up in process 12/21/2021 dx with narcotic bowel and now resolved and maintained on bowel regimen Plan: Fluid restriction Supportive care Tube feedings PT and OT 12/19/2021: Add fentanyl patch Supportive care 12/20/2021: Continue fentanyl patch Monitor closely 12/21/2021: Consult Dr. Quintero Abdominal x-ray 12/22/2021: Mag citrate Aggressive bowel regimen 12/23/2021: Continue laxatives Monitor closely 12/24/2021: Dr Quintero appreciated (1) Debility CALVIN OVERTON DO Dec 24, 2021 06:48
[2021-12-24 07:23] VITALS: BP 136/76
--- NOTE | 2021-12-24 07:39 | Progress Note - Surgery ---
VINNIE LAFLEURA 12/24/21 0739: Subjective Date Seen by a Provider: Dec 24, 2021 Time Seen by a Provider: 07:35 Subjective/Events-last exam Patient reports he is feeling a little worse than yesterday. States he has been having diffuse abdominal pain with some rebound tenderness. States he has been having bowel movements but they are all loose. Denies any nausea or vomiting. Patient still has to get a KUB today. Denies any chest pain, shortness of breath, fever, or chills at this time. Objective Exam Vital Signs Date Time Temp Pulse Resp B/P (MAP) Pulse Ox O2 Delivery O2 Flow Rate FiO2 12/24/21 07:23 36.8 79 16 136/76 (96) 96 Room Air 12/23/21 21:00 36.7 93 20 132/78 (96) 95 Room Air 12/23/21 20:00 Room Air 12/23/21 09:00 Room Air 12/23/21 07:49 35.6 78 16 139/76 (97) 95 Room Air I & O 12/24/21 07:00 Intake Total 2820 ml Output Total 1425 ml Balance 1395 ml Capillary Refill : General Appearance: No Apparent Distress, WD/WN, Chronically ill, Thin HEENT: PERRL/EOMI, Pharynx Normal Neck: Normal Inspection, Non Tender, Supple, Carotid Bruit Respiratory: Chest Non Tender, No Accessory Muscle Use, No Respiratory Distress Cardiovascular: No Edema, No JVD, Normal Peripheral Pulses Gastrointestinal: soft, tenderness (diffuse; gastrostomy tube luq) Extremity: Normal Inspection, Non Tender, No Calf Tenderness, No Pedal Edema Neurologic/Psychiatric: Alert, Oriented x3, No Motor/Sensory Deficits, whizzer II- XII Norm as Tested, Depressed Affect, Motor Weakness (Generalized) Skin: Normal Color, Warm/Dry Lymphatic: No Adenopathy Assessment/Plan Assessment/Plan Assessment/Plan Esophageal cancer with widespread metastasis Dysphagia Chronic pain Abdominal pain diffuse Constipation Continue bowel regimen and ambulation with PT likely restart tube feeds tomorrow if feeling well and get KUB. IV fluids EDUARD QUINTERO DO 12/24/21 1529: Subjective Subjective/Events-last exam Patient not feeling as well today as yesterday. Having liquid stools. Not having any nausea or emesis. Pain in the abdomen he is having but also states maybe a little better. KUB this morning shows a little stool still in the right colon. Denies fever sweats chills shortness of breath or chest pain. Objective Exam General Appearance: No Apparent Distress, Chronically ill HEENT: PERRL/EOMI, Normal ENT Inspection Neck: Normal Inspection, Non Tender Respiratory: Chest Non Tender, No Accessory Muscle Use, No Respiratory Distress Cardiovascular: Regular Rate, Rhythm, No JVD Gastrointestinal: soft, tenderness (minimal, does not appear to have much pain on palpation. gastrostomy tube luq) Neurologic/Psychiatric: Alert, No Motor/Sensory Deficits, Depressed Affect Skin: Normal Color, Warm/Dry Lymphatic: No Adenopathy Assessment/Plan Assessment/Plan Assessment/Plan Esophageal cancer with widespread metastasis Dysphagia Chronic pain Abdominal pain diffuse Constipation Continue bowel regimen and ambulation with PT Will do Miralax prep to try and evauate right colon stool load likely restart tube feeds tomorrow if feeling well IV fluids Supervisory-Addendum Brief Verification & Attestation Participated in pt care: history, MDM, physical Personally performed: exam, history, MDM, supervision of care Care discussed with: Medical Student Procedures: n/a Results interpretation: Verified all documentation Verification and Attestation of Medical Student E/M Service A medical student performed and documented this service in my presence. I reviewed and verified all information documented by the medical student and made modifications to such information, when appropriate. I personally performed the physical exam and medical decision making. Eduard Quintero, Dec 24, 2021,15:29 ALEXX LAFLEUR Dec 24, 2021 07:39 EDUARD QUINTERO DO Dec 24, 2021 15:29
[2021-12-24] MEDS: polyethylene glycoL POWDER 17 GM (MIRALAX) PACK PO SCH (08:20)
[2021-12-24] MEDS: LACTULOSE SYRUP 10GM/15ML (ENULOSE) 30ML UDC PEG SCH (08:21)
[2021-12-24] MEDS: DOCUSATE SODIUM 10 MG/ML 10 ML UDC (COLACE) PO SCH ×2 (08:21→21:02)
[2021-12-24] MEDS: SODIUM CHLORIDE 1 GM TABLET PO SCH ×4 (08:22→21:05)
[2021-12-24] MEDS: PANTOPRAZOLE 2 MG/ML LIQUID 200 ML (PROTONIX) PEG SCH ×6 (08:31→21:05)
--- NOTE | 2021-12-24 09:01 | Physical Therapy Daily Note ---
PT Daily Note-Current Subjective Pt sitting up in bed upon arrival. Pt reports 10/10 pain in abdomen and Nurse is notified. Nurse gives meds through peg tube and pt agrees to PT. Pain Numeric Pain Scale: 10-Worst Possible Pain Location Body Site: Abdomen Comment: Pt can't describe pain just 10/10. Mental Status Patient Orientation: Person, Place, Time, Situation Attachments: PEG Tube Transfers SCALE: Activities may be completed with or without assistive devices. 8-Pjlfhyzesg-wercgcp completes the activity by him/herself with no assistance from a helper. 5-Set-up or Clean-up Assistance-helper sets up or cleans up; patient completes activity. [place] assists only prior to or following the activity. 4-Supervision or Touching Assistance-helper provides verbal cues and/or touching/steadying and/or contact guard assistance as patient completes activity. Assistance may be provided throughout the activity or intermittently. 3-Partial/Moderate Assistance-helper does LESS THAN HALF the effort. [place] lifts, holds or supports trunk or limbs, but provides less than half the effort. 2-Substantial/Maximal Assistance-helper does MORE THAN HALF the effort. [place] lifts or holds trunk or limbs and provides more than half the effort. 3-Oduorvbff-lahdwj does ALL the effort. Patient does none of the effort to complete the activity. Or, the assistance of 2 or more helpers is required for the patient to complete the activity. If activity was not attempted, code reason: 7-Patient Refused. 9-Not Applicable-not attempted and the patient did not perform the activity before the current illness, exacerbation or injury. 10-Not Attempted due to Environmental Limitations-(lack of equipment, weather restraints, etc.). 88-Not Attempted due to Medical Conditions or Safety Concerns. Sit to Stand (QC): 5 Toilet Transfer (QC): 5 Weight Bearing Full Weight Bearing Full Weight Bearing Gait Training Does the Patient Walk?: Yes Distance: 500', 150' Walk 10 feet (QC): 5 Walk 50 ft with 2 Turns(QC): 5 Walk 150 ft (QC): 5 Gait Assistive Device: FWW RB needed during extended walk but only short rest Wheelchair Training Does the Pt Use a Wheelchair?: No Treatments Pt is able to complete bed mobility, sit up, complete AB/ADD, AP, HS & QS before amb. in hallway. Pt returns to room to rest and use BR at end of tx. All needs met. Assessment Current Status: Good Progress Pt's mobility and independence have improved despite pain reported. PT Short Term Goals Short Term Goals Time Frame: Dec 25, 2021 Roll Left & Right: 6 Sit to lyin Lying to sitting on side of be: 6 Sit to stand: 4 (SBA) Chair/fwr-sf-ussjr transfer: 4 (SBA) Walk 10 feet: 4 (SBA) Walk 50 feet with two turns: 4 (SBA) Walk 150 feet: 4 (SBA) PT Presiding Judge Goals Retirement Goals PT Presiding Judge Goals Time Frame: Jan 08, 2022 Roll Left & Right (QC): 6 Sit to Lying (QC): 6 Lying-Sitting on Side/Bed(QC): 6 Sit to Stand (QC): 6 Chair/Pii-ha-Jqcqz Xfer(QC): 6 Toilet Transfer (QC): 6 Car Transfer (QC): 6 Does the Patient Walk: Yes Walk 10 feet (QC): 6 Walk 50ft with 2 Turns (QC): 6 Walk 150 ft (QC): 6 Walking 10ft on Uneven Surface: 6 1 Step (curb) (QC): 6 4 Steps (QC): 6 12 Steps (QC): 6 Picking up an Object (QC): 6 Wheel 50 feet with 2 turns (QC: 9 Wheel 150 feet: 9 PT Plan Problem List Problem List: Activity Tolerance Treatment/Plan Treatment Plan: Continue Plan of Care Treatment Plan: Education, Functional Activity Melo, Functional Strength, Group Therapy, Gait, Safety, Therapeutic Exercise, Transfers Treatment Duration: Jan 08, 2022 Frequency: At least 5 of 7 days/Wk (IRF) Estimated Hrs Per Day: 1.5 hours per day Patient and/or Family Agrees t: Yes Time/GCodes Time In: 800 Time Out: 845 Total Billed Treatment Time: 45 Total Billed Treatment 1, FA (20m) & GT x2 (25m) ABBI YANEZ PTA Dec 24, 2021 09:01
--- NOTE | 2021-12-24 09:56 | Occupational Ther Daily Note ---
OT Current Status-Daily Note Subjective in bed, agreeable to OT Tx, Pt declined showering, due to having difficulty having a BM and feels like there is a blockage. Pt agrees to shower tomorrow. ADL-Treatment Therapy Code Descriptions/Definitions Functional [place] Measure: 0=Not Assessed/NA 4=Minimal Assistance 1=Total Assistance 5=Supervision or Setup 2=Maximal Assistance 6=Modified [place] 3=Moderate Assistance 7=Complete IndependenceSCALE: Activities may be completed with or without assistive devices. 9-Jfznzfonpb-oybrbuj completes the activity by him/herself with no assistance from a helper. 5-Set-up or Clean-up Assistance-helper sets up or cleans up; patient completes activity. [place] assists only prior to or following the activity. 4-Supervision or Touching Assistance-helper provides verbal cues and/or touching/steadying and/or contact guard assistance as patient completes activity. Assistance may be provided throughout the activity or intermittently. 3-Partial/Moderate Assistance-helper does LESS THAN HALF the effort. [place] lifts, holds or supports trunk or limbs, but provides less than half the effort. 2-Substantial/Maximal Assistance-helper does MORE THAN HALF the effort. [place] lifts or holds trunk or limbs and provides more than half the effort. 4-Kebeublyx-bxbqsa does ALL the effort. Patient does none of the effort to complete the activity. Or, the assistance of 2 or more helpers is required for the patient to complete the activity. If activity was not attempted, code reason: 7-Patient Refused. 9-Not Applicable-not attempted and the patient did not perform the activity before the current illness, exacerbation or injury. 10-Not Attempted due to Environmental Limitations-(lack of equipment, weather restraints, etc.). 88-Not Attempted due to Medical Conditions or Safety Concerns. Toileting Hygiene (QC): 6 Toilet Transfer (QC): 6 Other Treatment Pt in bed, agreeable to OT Tx. Pt transferred supine to EOB independently, then used FWW to transfer into bathroom and onto toilet with set up (OT managed IV pole for pt). Pt then completed toileting, and used FWW to go to therapy gym. OT tx focused on increasing BUE strength and activity tolerance. Pt completed x15 mins on arm bike, x20-25 Watt resistance, no rest break. Pt completed rubber band patterns, 2lb wrist weights BUEs, pt able to complete 3 patterns without errors. Pt returned to his room using FWW, OT assisted only with IV pole. Pt transferred to bed. Post tx, pt in bed, call light in reach and all needs met. Education OT Patient Education: Correct positioning, Energy conservation, Modified ADL techniques, Progress toward Goal/Update tx plan, Purpose of tx/functional activities, Rehab process Teaching Recipient: Patient Teaching Methods: Discussion Response to Teaching: Verbalize Understanding OT Short Term Goals Short Term Goals Time Frame: Dec 25, 2021 Eatin Oral hygiene: 4 Toileting hygiene: 5 Shower/bathe self: 3 Upper body dressin Lower body dressin Putting on/taking off footwear: 4 OT Skilled Nursing Goals Mirror Installer Goals Time Frame: Dec 31, 2021 Eating (QC): 88 Oral Hygiene (QC): 5 Toileting Hygiene (QC): 6 Shower/Bathe Self (QC): 5 Upper Body Dressing (QC): 6 Lower Body Dressing (QC): 6 On/Off Footwear (QC): 6 1=Demonstrate adherence to instructed precautions during ADL tasks. 2=Patient will verbalize/demonstrate understanding of assistive devices/modifications for ADL. 3=Patient will improve strength/tolerance for activity to enable patient to perform ADL's. OT Education/Plan Problem List/Assessment Assessment: Decreased Activ Tolerance, Decreased UE Strength, Impaired I ADL's Discharge Recommendations Plan/Recommendations: Continue POC Treatment Plan/Plan of Care Patient would benefit from OT for education, treatment and training to promote independence in ADL's, mobility, safety and/or upper extremity function for ADL's. Plan of Care: ADL Retraining, Concurrent Therapy, Functional Mobility, Group Exercise/Act as Ind, UE Funct Exercise/Act Treatment Duration: Dec 31, 2021 Frequency: At least 5 of 7 days/Wk (IRF) Estimated Hrs Per Day: 1.5 hours per day (75-90 min/day ) Agreement: Yes Rehab Potential: Guarded Time/GCodes Start Time: 09:30 Stop Time: 10:45 Total Time Billed (hr/min): 75 Billed Treatment Time 1, ADL (20'), EX (15'), FA 3 (40') FRANCINE DUEÑAS OT Dec 24, 2021 09:56
--- NOTE | 2021-12-24 11:05 | Diagnostic Imaging Report ---
INDICATION: Abdominal pain KUB 11:01 AM Bowel gas pattern is normal. There are no pathologic masses or calcifications. IMPRESSION: No acute abnormalities in the abdomen. Dictated by: Dictated on workstation # [id number]
--- NOTE | 2021-12-24 11:19 | Speech Therapy Daily Note ---
Speech Daily Progress Note Subjective Date Seen by Provider: Dec 24, 2021 Time Seen by Provider: 09:00 The patient was seated upright in his bed, awake and alert upon entrance to his room by the clinician. The patient greeted the clinician appropriately and was agreeable to participation in the cognitive linguistic and dysphagia treatment session. Objective - Dysphagia Exercises: The patient independently recalled the two exercises speech pathology previously recommended. The patient is able to complete the exercises independently without verbal cueing or instruction from the clinician. The patient completes functional recall of physician recommendations, including his upcoming abdominal scan. The patient reported discomfort to the clinician (the RN is aware) located near his stomach region. The patient believes (or feels he may) have a blockage. The clinician continued the conversation regarding the patient's comfort with attempting additional P.O. items other than ice chips. The patient continued to politely refuse stating, "Now just isn't the time." The patient does state the ice chips are "going good," and denied overt s/s of suspected aspiration. The patient does spontaneously consume ice chips sparingly throughout the session without difficulty. Assessment Assessment Current Status: Fair Progress Treatment Plan Continue Plan of Care Speech Short Term Goals Short Term Goals Short Term Goals 1. The patient will demonstrate 80% accuracy with memory exercises with mild clinician verbal cueing. 2. The patient will follow safe swallowing strategies with 90% accuracy, inde pendently. Time Frame-STG: One Week. Speech Newscast Director Goals Newscast Director Goals 1. The patient will demonstrate improved cognitive linguistic function for safe discharge to the least restrictive environment. 2. The patient will tolerate the least restrictive diet consistency without s/s of suspected aspiration. Time Frame: Ten Days. Speech-Plan Treatment Plan Speech Therapy Treatment Plan: Continue Plan of Care Treatment Duration: Dec 19, 2021 Frequency: Modified Program (IRF) Estimated Hrs Per Day: Other Rehab Potential: Guarded Safety Risks/Education Teaching Recipient: Patient Teaching Methods: Discussion Response to Teaching: Verbalize Understanding Education Topics Provided: Swallowing Exercises Time Speech Therapy Time In: 09:00 Speech Therapy Time Out: 09:30 Total Billed Time: 30 Billed Treatment Time RamoANA SLTS LOY, [facility] Dec 24, 2021 11:19
[2021-12-24] MEDS ORDERED: polyethylene glycoL POWDER 17 GM (MIRALAX) PACK PEG ONE (15:30)
[2021-12-24] MEDS: polyethylene glycoL Bowel Prep(MIRALAX) 238 GM PEG NR ×16 (15:50→19:44)
--- NOTE | 2021-12-24 16:21 | Physical Therapy Daily Note ---
PT Daily Note-Current Subjective Pt sitting up in bed upon arrival. Pt reports still constipated and nothing that has been given is working. Nurse is aware. INSTALLATIONS INSPECTOR and Nurse encourage pt to walk as this could help constipation. Mental Status Patient Orientation: Person, Place, Time, Situation Transfers SCALE: Activities may be completed with or without assistive devices. 3-Xjqquhakxw-ecpohij completes the activity by him/herself with no assistance from a helper. 5-Set-up or Clean-up Assistance-helper sets up or cleans up; patient completes activity. [place] assists only prior to or following the activity. 4-Supervision or Touching Assistance-helper provides verbal cues and/or touching/steadying and/or contact guard assistance as patient completes activity. Assistance may be provided throughout the activity or intermittently. 3-Partial/Moderate Assistance-helper does LESS THAN HALF the effort. [place] lifts, holds or supports trunk or limbs, but provides less than half the effort. 2-Substantial/Maximal Assistance-helper does MORE THAN HALF the effort. [place] lifts or holds trunk or limbs and provides more than half the effort. 3-Dszawmkpa-ssshgb does ALL the effort. Patient does none of the effort to complete the activity. Or, the assistance of 2 or more helpers is required for the patient to complete the activity. If activity was not attempted, code reason: 7-Patient Refused. 9-Not Applicable-not attempted and the patient did not perform the activity before the current illness, exacerbation or injury. 10-Not Attempted due to Environmental Limitations-(lack of equipment, weather restraints, etc.). 88-Not Attempted due to Medical Conditions or Safety Concerns. Sit to Lying (QC): 5 Lying to Sitting/Side of Bed(Q: 5 Sit to Stand (QC): 5 Weight Bearing Full Weight Bearing Full Weight Bearing Gait Training Does the Patient Walk?: Yes Distance: 500' Walk 10 feet (QC): 5 Walk 50 ft with 2 Turns(QC): 5 Walk 150 ft (QC): 5 Gait Assistive Device: FWW Pt takes RB as needed for fatigue. Treatments Pt TF to standing and amb. in hallway, taking RB as needed. Pt returns to room to use BR w/o success. Pt returns to bed to rest Supine for comfort. All needs met, call light in hand. Assessment Current Status: Good Progress Pt continues to remain mobile despite constipation and discomfort w/BM. PT Short Term Goals Short Term Goals Time Frame: Dec 25, 2021 Roll Left & Right: 6 Sit to lyin Lying to sitting on side of be: 6 Sit to stand: 4 (SBA) Chair/lpr-yr-mczen transfer: 4 (SBA) Walk 10 feet: 4 (SBA) Walk 50 feet with two turns: 4 (SBA) Walk 150 feet: 4 (SBA) PT Master Esthetician Goals Ch[facility] Goals PT [facility] Goals Time Frame: Jan 08, 2022 Roll Left & Right (QC): 6 Sit to Lying (QC): 6 Lying-Sitting on Side/Bed(QC): 6 Sit to Stand (QC): 6 Chair/Zol-hw-Bhkef Xfer(QC): 6 Toilet Transfer (QC): 6 Car Transfer (QC): 6 Does the Patient Walk: Yes Walk 10 feet (QC): 6 Walk 50ft with 2 Turns (QC): 6 Walk 150 ft (QC): 6 Walking 10ft on Uneven Surface: 6 1 Step (curb) (QC): 6 4 Steps (QC): 6 12 Steps (QC): 6 Picking up an Object (QC): 6 Wheel 50 feet with 2 turns (QC: 9 Wheel 150 feet: 9 PT Plan Problem List Problem List: Activity Tolerance Treatment/Plan Treatment Plan: Continue Plan of Care Treatment Plan: Education, Functional Activity Melo, Functional Strength, Group Therapy, Gait, Safety, Therapeutic Exercise, Transfers Treatment Duration: Jan 08, 2022 Frequency: At least 5 of 7 days/Wk (IRF) Estimated Hrs Per Day: 1.5 hours per day Patient and/or Family Agrees t: Yes Time/GCodes Time In: 1300 Time Out: 1330 Total Billed Treatment Time: 30 Total Billed Treatment 1, FA (10m) & GT (20m) ABBI YANEZ INSTALLATIONS INSPECTOR Dec 24, 2021 16:21
[2021-12-24 20:32] VITALS: BP 147/80
[2021-12-25] MEDS: ACETAMINOPHEN ER 650 MG (TYLENOL ARTHRITIS) PO PRN ×4 (03:24→22:07)
[2021-12-25] MEDS: CATHETER FLUSH 10 ML SYR IVP SCH ×3 (06:06→22:19)
[2021-12-25] MEDS: KCL 20 MEQ TAB (K-DUR) PO SCH (06:07)
--- NOTE | 2021-12-25 07:12 | PM&R Progress Note ---
Subjective HPI/CC On Admission Date Seen by Provider: Dec 25, 2021 Subjective/Events-last exam 12/25/2021: Still having issues with constipation Dr Quintero will evaluate No pain otherwise 12/24/2021: Still constipated Loose stools going around the constipation area in the colon Monitor closely 12/23/2021: Multiple BM's noted after mag citrate at 1000pm No falls Pain controlled Fentanyl patch maintained 12/22/2021: Patient doing the same Mag citrate ordered by Dr. Quintero Appreciate Dr. Quintero's assistance Supportive care will continue 12/21/2021: Patient having abdominal pain Constipation is likely an issue but could be ileus for esophageal cancer with obstruction We will check x-ray and consult Dr. Quintero 12/20/2021: Patient doing much better Fentanyl patch has made a huge difference No pain is reported right now Tolerating PEG tube feedings Minimal emesis 12/19/2021: Patient doing better except for the pain Starting fentanyl patch because extended release pills can't go through PEG tube Emesis at times which is an issue that occurred at [facility] Walking around pretty well Supportive care will continue Review of Systems General: Fatigue, Malaise Objective Exam Vital Signs Vital Signs Date Time Temp Pulse Resp B/P (MAP) Pulse Ox O2 Delivery O2 Flow Rate FiO2 12/25/21 21:00 95 Room Air 12/25/21 19:53 37.4 84 18 150/77 (101) Capillary Refill : General Appearance: No Apparent Distress, WD/WN, Chronically ill, Thin HEENT: PERRL/EOMI, Normal ENT Inspection, Pharynx Normal Neck: Full Range of Motion, Normal Inspection, Non Tender, Supple, Carotid Bruit Respiratory: Chest Non Tender, Lungs Clear, Normal Breath Sounds, No Accessory Muscle Use, No Respiratory Distress Cardiovascular: Regular Rate, Rhythm, No Edema, No Gallop, No JVD, No Murmur, Normal Peripheral Pulses Gastrointestinal: Normal Bowel Sounds, No Organomegaly, No Pulsatile Mass, Non Tender, Soft, Other (PEG tube in place) Back: Normal Inspection, No CVA Tenderness, No Vertebral Tenderness Extremity: Normal Capillary Refill, Normal Inspection, Normal Range of Motion, Non Tender, No Calf Tenderness, No Pedal Edema Neurologic/Psychiatric: Alert, Oriented x3, No Motor/Sensory Deficits, public health dentist II-XII Norm as Tested, Depressed Affect, Motor Weakness (Generalized) Skin: Normal Color, Warm/Dry Lymphatic: No Adenopathy Results/Procedures Lab Patient resulted labs reviewed. FIM Transfers Therapy Code Descriptions/Definitions Functional [place] Measure: 0=Not Assessed/NA 4=Minimal Assistance 1=Total Assistance 5=Supervision or Setup 2=Maximal Assistance 6=Modified [place] 3=Moderate Assistance 7=Complete IndependenceSCALE: Activities may be completed with or without assistive devices. 4-Epclzzaaxs-yrkyzdj completes the activity by him/herself with no assistance from a helper. 5-Set-up or Clean-up Assistance-helper sets up or cleans up; patient completes activity. [place] assists only prior to or following the activity. 4-Supervision or Touching Assistance-helper provides verbal cues and/or touch ing/steadying and/or contact guard assistance as patient completes activity. Assistance may be provided throughout the activity or intermittently. 3-Partial/Moderate Assistance-helper does LESS THAN HALF the effort. [place] lifts, holds or supports trunk or limbs, but provides less than half the effort. 2-Substantial/Maximal Assistance-helper does MORE THAN HALF the effort. [place] lifts or holds trunk or limbs and provides more than half the effort. 9-Igwkascgt-kcufut does ALL the effort. Patient does none of the effort to complete the activity. Or, the assistance of 2 or more helpers is required for the patient to complete the activity. If activity was not attempted, code reason: 7-Patient Refused. 9-Not Applicable-not attempted and the patient did not perform the activity before the current illness, exacerbation or injury. 10-Not Attempted due to Environmental Limitations-(lack of equipment, weather restraints, etc.). 88-Not Attempted due to Medical Conditions or Safety Concerns. Roll Left to Right (QC): 6 Sit to Lying (QC): 5 Sit to Stand (QC): 5 Chair/Uwg-cp-Vlfbf Xfer(QC): 4 Car Transfer (QC): 4 Gait Training Does the Patient Walk?: Yes Distance: 500' Walk 10 feet (QC): 5 Walk 50 ft with 2 Turns(QC): 5 Walk 150 ft (QC): 5 Walking 10ft/uneven surface-QC: 4 Gait Persons Needed: 1 Gait Assistive Device: FWW Wheelchair Training Does the Pt Use a Wheelchair?: No Wheel 50 ft with 2 turns (QC): 4 Wheel 150 ft (QC): 4 Type of Wheelchair: Manual Stair Training #of Steps: 4 1 Step (curb) (QC): 4 4 Steps (QC): 4 12 Steps (QC): 88 Balance Picking up an Object (QC): 4 (CGA without using a director fixed income) ADL-Treatment Eating (QC): 88 (PEG tube) Oral Hygiene (QC): 10 (Pt doesn't have dentures with him) Shower/Bathe Self (QC): 4 (SBA with sponge bath at recliner.) Upper Body Dressing (QC): 5 (set up with button up shirt.) Lower Body Dressing (QC): 4 (Supervision, pt able to thread BLEs and manage pant hike.) On/Off Footwear (QC): 3 Toileting Hygiene (QC): 6 Toilet Transfer (QC): 6 Assessment/Plan Assessment and Plan Assess & Plan/Chief Complaint Assessment: Debility Profound weight loss Esophageal cancer with widespread metastasis Dysphagia Chronic pain Hyperlipidemia Hyponatremia placed on fluid restriction Abdominal pain work-up in process 12/21/2021 dx with narcotic bowel and still large amount of stool in colon getting CT per Dr Quintero Plan: Fluid restriction Supportive care Tube feedings PT and OT 12/19/2021: Add fentanyl patch Supportive care 12/20/2021: Continue fentanyl patch Monitor closely 12/21/2021: Consult Dr. Quintero Abdominal x-ray 12/22/2021: Mag citrate Aggressive bowel regimen 12/23/2021: Continue laxatives Monitor closely 12/24/2021: Dr Quintero appreciated 12/25/2021: CT abd pelvis (1) Debility CALVIN OVERTON DO Dec 25, 2021 07:12
--- NOTE | 2021-12-25 07:18 | Progress Note - Surgery ---
ALEXX LAFLEUR 12/25/21 0718: Subjective Date Seen by a Provider: Dec 25, 2021 Time Seen by a Provider: 07:15 Subjective/Events-last exam Patient is up watching TV in bed this morning. Reports having many loose stools last night. States he has diffuse abdominal pain that is slightly better than yesterday. Denies any nausea, or vomiting, fever, or chills at this time. KUB yesterday showed normal bowel gas patterns and no acute abnormality. Objective Exam Vital Signs Date Time Temp Pulse Resp B/P (MAP) Pulse Ox O2 Delivery O2 Flow Rate FiO2 12/24/21 21:15 Room Air 12/24/21 20:32 37.0 81 20 147/80 (102) 95 Room Air 12/24/21 09:59 Room Air 12/24/21 07:23 36.8 79 16 136/76 (96) 96 Room Air I & O 12/25/21 07:00 Intake Total 3273 ml Output Total 1400 ml Balance 1873 ml Capillary Refill : General Appearance: No Apparent Distress, WD/WN, Chronically ill, Thin HEENT: PERRL/EOMI, Normal ENT Inspection, Pharynx Normal Neck: Normal Inspection, Non Tender, Supple, Carotid Bruit Respiratory: Chest Non Tender, No Accessory Muscle Use, No Respiratory Distress Cardiovascular: No Edema, No JVD, Normal Peripheral Pulses Gastrointestinal: soft, tenderness (minimal, does not appear to have much pain on palpation. gastrostomy tube luq) Extremity: Normal Inspection, Non Tender, No Calf Tenderness, No Pedal Edema Neurologic/Psychiatric: Alert, Oriented x3, No Motor/Sensory Deficits, vending machine mechanic II-X II Norm as Tested, Depressed Affect, Motor Weakness (Generalized) Skin: Normal Color, Warm/Dry Lymphatic: No Adenopathy Assessment/Plan Assessment/Plan Assessment/Plan Esophageal cancer with widespread metastasis Dysphagia Chronic pain Abdominal pain diffuse Constipation Continue bowel regimen and ambulation with PT Will do Miralax prep to try and evauate right colon stool load likely restart tube feeds if feeling well IV fluids EDUARD QUINTERO DO 12/25/212041: Subjective Subjective/Events-last exam Patient laying in bed. Still reports having abdominal pain that may be slightly better than yesterday. Still concerned about it. He is having multiple loose stools. Patient still feels like he has to have a bowel movement and concerned about not being able to have a regular bowel movement. Denies nausea vomiting fever sweats chills shortness of breath or chest pain. Objective Exam General Appearance: No Apparent Distress, Chronically ill HEENT: PERRL/EOMI, Normal ENT Inspection, Pharynx Normal Neck: Normal Inspection, Non Tender, Supple Respiratory: Chest Non Tender, No Accessory Muscle Use, No Respiratory Distress Cardiovascular: Regular Rate, Rhythm, No JVD Gastrointestinal: soft, tenderness (minimal, does not appear to have much pain on palpation. gastrostomy tube luq) Neurologic/Psychiatric: Alert, Depressed Affect, Motor Weakness Skin: Normal Color, Warm/Dry Lymphatic: No Adenopathy Assessment/Plan Assessment/Plan Assessment/Plan Esophageal cancer with widespread metastasis Dysphagia Chronic pain Abdominal pain diffuse Constipation Continue bowel regimen and ambulation with PT restart tube feeds will hold after midnight and get a CT scan of the abdomen pelvis with oral contrast tomorrow to further evaluate. Patient reports more pain than what he seems to have on exam Further recommendations pending results of CT Supervisory-Addendum Brief Verification & Attestation Participated in pt care: history, MDM, physical Personally performed: exam, history, MDM, supervision of care Care discussed with: Medical Student Procedures: n/a Results interpretation: Verified all documentation Verification and Attestation of Medical Student E/M Service A medical student performed and documented this service in my presence. I reviewed and verified all information documented by the medical student and made modifications to such information, when appropriate. I personally performed the physical exam and medical decision making. Eduard Quintero, Dec 25, 2021,20:42 ALEXX LAFLEUR Dec 25, 2021 07:18 EDUARD QUINTERO DO Dec 25, 2021 20:42
[2021-12-25 07:47] VITALS: BP 161/85
--- NOTE | 2021-12-25 08:39 | Occupational Ther Daily Note ---
OT Current Status-Daily Note Subjective Pt in bed, agreeable to OT Tx. Pt requests to stay close to his room due to frequency of attempting BM. ADL-Treatment Therapy Code Descriptions/Definitions Functional [place] Measure: 0=Not Assessed/NA 4=Minimal Assistance 1=Total Assistance 5=Supervision or Setup 2=Maximal Assistance 6=Modified [place] 3=Moderate Assistance 7=Complete IndependenceSCALE: Activities may be completed with or without assistive devices. 1-Xavoejcxnn-aiqstyd completes the activity by him/herself with no assistance from a helper. 5-Set-up or Clean-up Assistance-helper sets up or cleans up; patient completes activity. [place] assists only prior to or following the activity. 4-Supervision or Touching Assistance-helper provides verbal cues and/or touching/steadying and/or contact guard assistance as patient completes activity. Assistance may be provided throughout the activity or intermittently. 3-Partial/Moderate Assistance-helper does LESS THAN HALF the effort. [place] lifts, holds or supports trunk or limbs, but provides less than half the effort. 2-Substantial/Maximal Assistance-helper does MORE THAN HALF the effort. [place] lifts or holds trunk or limbs and provides more than half the effort. 2-Aigkqssjq-zdzipp does ALL the effort. Patient does none of the effort to complete the activity. Or, the assistance of 2 or more helpers is required for the patient to complete the activity. If activity was not attempted, code reason: 7-Patient Refused. 9-Not Applicable-not attempted and the patient did not perform the activity before the current illness, exacerbation or injury. 10-Not Attempted due to Environmental Limitations-(lack of equipment, weather restraints, etc.). 88-Not Attempted due to Medical Conditions or Safety Concerns. Eating (QC): 88 (PEG tube) Oral Hygiene (QC): 6 (Per clinical judgment, pt would be able to complete task independently. Pt doesn't have his dentures with him so declines task.) Shower/Bathe Self (QC): 5 (set up to cover port prior to shower.) Upper Body Dressing (QC): 5 (set up, OT assisted with managing IV lines attached to port on chest.) Lower Body Dressing (QC): 5 (set up) On/Off Footwear: 6 (IND don/doff gripper socks.) Toileting Hygiene (QC): 6 (IND) Toilet Transfer (QC): 6 (IND with GBs.) Other Treatment Pt in bed, transferred supine to sit EOB, independently. He used FWW to transfer into bathroom and onto toilet, OT only assisted with managing IV pole. Pt completed toileting, showering and dressing as outlined above, then returned to recliner. OT tx focused on increasing BUE strength and activity tolerance. Pt completed nut/bolt block, 2lb wrist weights BUEs, x16 nut/bolts. Pt instructed to manipulate nuts/bolts in order to remove from block, turn item around and place back onto the block. Post tx, pt in recliner, call light in reach and all needs met. Education OT Patient Education: Correct positioning, Energy conservation, Modified ADL techniques, Progress toward Goal/Update tx plan, Purpose of tx/functional activities, Rehab process Teaching Recipient: Patient Teaching Methods: Discussion Response to Teaching: Verbalize Understanding OT Short Term Goals Short Term Goals Time Frame: Dec 25, 2021 Eatin Oral hygiene: 4 Toileting hygiene: 5 Shower/bathe self: 3 Upper body dressin Lower body dressin Putting on/taking off footwear: 4 OT Care Home Goals Care Home Goals Time Frame: Dec 31, 2021 Eating (QC): 88 Oral Hygiene (QC): 5 Toileting Hygiene (QC): 6 Shower/Bathe Self (QC): 5 Upper Body Dressing (QC): 6 Lower Body Dressing (QC): 6 On/Off Footwear (QC): 6 1=Demonstrate adherence to instructed precautions during ADL tasks. 2=Patient will verbalize/demonstrate understanding of assistive devices/modifications for ADL. 3=Patient will improve strength/tolerance for activity to enable patient to perform ADL's. OT Education/Plan Problem List/Assessment Assessment: Decreased Activ Tolerance, Decreased UE Strength, Impaired I ADL's Discharge Recommendations Plan/Recommendations: Continue POC Treatment Plan/Plan of Care Patient would benefit from OT for education, treatment and training to promote independence in ADL's, mobility, safety and/or upper extremity function for ADL's. Plan of Care: ADL Retraining, Concurrent Therapy, Functional Mobility, Group Exercise/Act as Ind, UE Funct Exercise/Act Treatment Duration: Dec 31, 2021 Frequency: At least 5 of 7 days/Wk (IRF) Estimated Hrs Per Day: 1.5 hours per day (75-90 min/day ) Agreement: Yes Rehab Potential: Guarded Time/GCodes Start Time: 07:45 Stop Time: 09:00 Total Time Billed (hr/min): 75 Billed Treatment Time 1, ADL 3 (45'), FA 2 (30') FRANCINE DUEÑAS OT Dec 25, 2021 08:39
[2021-12-25] MEDS: SODIUM CHLORIDE 1 GM TABLET PO SCH ×4 (09:53→22:07)
[2021-12-25] MEDS: polyethylene glycoL POWDER 17 GM (MIRALAX) PACK PO SCH (09:53)
[2021-12-25] MEDS: LACTULOSE SYRUP 10GM/15ML (ENULOSE) 30ML UDC PEG SCH (09:54)
[2021-12-25] MEDS: DOCUSATE SODIUM 10 MG/ML 10 ML UDC (COLACE) PO SCH ×2 (09:54→22:00)
[2021-12-25] MEDS: NS IV 1000 ML 1,000 ML IV SCH (09:59)
[2021-12-25] MEDS: PANTOPRAZOLE 2 MG/ML LIQUID 200 ML (PROTONIX) PEG SCH ×6 (09:59→22:07)
--- NOTE | 2021-12-25 10:10 | Physical Therapy Daily Note ---
PT Daily Note-Current Subjective Pt sitting up in recliner upon arrival. Pt reports that his clothes are tight and asks to change back into hospital gown. Pt also advises that having increased BM but still nothing solid, still constipated but it is getting smaller. Pain Numeric Pain Scale: 6 Location Body Site: Abdomen Pain Description: Ache, Tightness Mental Status Patient Orientation: Person, Place, Time, Situation Attachments: IV Transfers SCALE: Activities may be completed with or without assistive devices. 1-Slwspkcfjq-iuxdsqt completes the activity by him/herself with no assistance from a helper. 5-Set-up or Clean-up Assistance-helper sets up or cleans up; patient completes activity. [place] assists only prior to or following the activity. 4-Supervision or Touching Assistance-helper provides verbal cues and/or touching/steadying and/or contact guard assistance as patient completes activity. Assistance may be provided throughout the activity or intermittently. 3-Partial/Moderate Assistance-helper does LESS THAN HALF the effort. [place] lifts, holds or supports trunk or limbs, but provides less than half the effort. 2-Substantial/Maximal Assistance-helper does MORE THAN HALF the effort. [place] lifts or holds trunk or limbs and provides more than half the effort. 4-Fnesktdur-ejdhra does ALL the effort. Patient does none of the effort to complete the activity. Or, the assistance of 2 or more helpers is required for the patient to complete the activity. If activity was not attempted, code reason: 7-Patient Refused. 9-Not Applicable-not attempted and the patient did not perform the activity before the current illness, exacerbation or injury. 10-Not Attempted due to Environmental Limitations-(lack of equipment, weather restraints, etc.). 88-Not Attempted due to Medical Conditions or Safety Concerns. Sit to Stand (QC): 5 Toilet Transfer (QC): 5 Weight Bearing Full Weight Bearing Full Weight Bearing Gait Training Does the Patient Walk?: Yes Distance: 500', 150' Walk 10 feet (QC): 5 Walk 50 ft with 2 Turns(QC): 5 Walk 150 ft (QC): 5 Gait Assistive Device: FWW RB approx. half way through walk. Wheelchair Training Does the Pt Use a Wheelchair?: No Treatments Pt changes from pt's clothes into hospital gown for comfort (sitting in chair for most but stands to doff pants). TF to standing and amb. to BR then amb, in hallway. Pt takes RB as needed before returning to room to rest with all needs met, call light in hand. Assessment Current Status: Fair Progress Pt needs occasional RB for fatigue. Pain & tightness continue to hamper PT, increased need for RB. PT Short Term Goals Short Term Goals Time Frame: Dec 25, 2021 Roll Left & Right: 6 Sit to lyin Lying to sitting on side of be: 6 Sit to stand: 4 (SBA) Chair/ysc-wt-bpaig transfer: 4 (SBA) Walk 10 feet: 4 (SBA) Walk 50 feet with two turns: 4 (SBA) Walk 150 feet: 4 (SBA) PT Fdc Goals Magazine Worker Goals PT [facility]dc Goals Time Frame: Jan 08, 2022 Roll Left & Right (QC): 6 Sit to Lying (QC): 6 Lying-Sitting on Side/Bed(QC): 6 Sit to Stand (QC): 6 Chair/Fua-mq-Qmbke Xfer(QC): 6 Toilet Transfer (QC): 6 Car Transfer (QC): 6 Does the Patient Walk: Yes Walk 10 feet (QC): 6 Walk 50ft with 2 Turns (QC): 6 Walk 150 ft (QC): 6 Walking 10ft on Uneven Surface: 6 1 Step (curb) (QC): 6 4 Steps (QC): 6 12 Steps (QC): 6 Picking up an Object (QC): 6 Wheel 50 feet with 2 turns (QC: 9 Wheel 150 feet: 9 PT Plan Problem List Problem List: Activity Tolerance Treatment/Plan Treatment Plan: Continue Plan of Care Treatment Plan: Education, Functional Activity Melo, Functional Strength, Group Therapy, Gait, Safety, Therapeutic Exercise, Transfers Treatment Duration: Jan 08, 2022 Frequency: At least 5 of 7 days/Wk (IRF) Estimated Hrs Per Day: 1.5 hours per day Patient and/or Family Agrees t: Yes Safety Risks/Education Patient Education: Transfer Techniques, Correct Positioning Teaching Recipient: Patient Teaching Methods: Discussion Response to Teaching: Verbalize Understanding Time/GCodes Time In: 900 Time Out: 1000 Total Billed Treatment 1, GT x2 (30m) & FA x2 (30m) ABBI YANEZ SUPERVISOR CUTTING DEPARTMENT Dec 25, 2021 10:10
--- NOTE | 2021-12-25 12:40 | Speech Therapy Daily Note ---
Speech Daily Progress Note Subjective Date Seen by Provider: Dec 25, 2021 Time Seen by Provider: 10:30 The patient was seated upright in bed, awake and alert upon entrance to the patient's room by the clinician. The patient greeted the clinician appropriately and was agreeable to participation in the cognitive linguistic and dysphagia treatment session. Objective The patient continues P.O. intake of ice chips sparingly throughout the treatment session. The patient does not display overt s/s of suspected aspiration with the ice chips. The patient is currently NPO due to a bowel regiment and recent abdominal exams (per surgery). Regardless of NPO status, the patient continues to state he would "not be trying anything else any ways." The patient does complete functional recall of dysphagia exercises accurately, as well as, states accurate orientation information and recall of recent physical therapy and occupational therapy exercises. Assessment Assessment Current Status: Fair Progress Treatment Plan Continue Plan of Care Speech Short Term Goals Short Term Goals Short Term Goals 1. The patient will demonstrate 80% accuracy with memory exercises with mild clinician verbal cueing. 2. The patient will follow safe swallowing strategies with 90% accuracy, independently. Time Frame-STG: One Week. Speech Cnc Milling Machinist Goals Senior Care Goals 1. The patient will demonstrate improved cognitive linguistic function for safe discharge to the least restrictive environment. 2. The patient will tolerate the least restrictive diet consistency without s/s of suspected aspiration. Time Frame: Ten Days. Speech-Plan Treatment Plan Speech Therapy Treatment Plan: Continue Plan of Care Treatment Duration: Dec 19, 2021 Frequency: Modified Program (IRF) Estimated Hrs Per Day: Other Rehab Potential: Guarded Safety Risks/Education Teaching Recipient: Patient Teaching Methods: Demonstration, Discussion Response to Teaching: Verbalize Understanding, Return Demonstration Education Topics Provided: Dysphagia Exercises Time Speech Therapy Time In: 10:30 Speech Therapy Time Out: 11:00 Total Billed Time: 30 Billed Treatment Time 1, NICK, JUVE DUMONT Dec 25, 2021 12:40
[2021-12-25] MEDS: fentaNYL PATCH 25 MCG (DURAGESIC) TD SCH (14:37)
[2021-12-25] MEDS: [UNRECOGNIZED DRUG - REMARK] TP SCH (14:37)
--- NOTE | 2021-12-25 14:50 | Physical Therapy Daily Note ---
PT Daily Note-Current Subjective Pt laying Supine in bed and reports fatigued this afternoon. Pt agrees to PT for Supine EX. Pain Numeric Pain Scale: 4 Location Body Site: Abdomen Pain Description: Ache, Tightness Mental Status Patient Orientation: Person, Place, Time, Situation Attachments: PEG Tube Transfers SCALE: Activities may be completed with or without assistive devices. 5-Aerzelejch-gqcfdac completes the activity by him/herself with no assistance from a helper. 5-Set-up or Clean-up Assistance-helper sets up or cleans up; patient completes activity. [place] assists only prior to or following the activity. 4-Supervision or Touching Assistance-helper provides verbal cues and/or touching/steadying and/or contact guard assistance as patient completes activity. Assistance may be provided throughout the activity or intermittently. 3-Partial/Moderate Assistance-helper does LESS THAN HALF the effort. [place] lifts, holds or supports trunk or limbs, but provides less than half the effort. 2-Substantial/Maximal Assistance-helper does MORE THAN HALF the effort. [place] lifts or holds trunk or limbs and provides more than half the effort. 9-Bkwnyanpk-jmclyy does ALL the effort. Patient does none of the effort to complete the activity. Or, the assistance of 2 or more helpers is required for the patient to complete the activity. If activity was not attempted, code reason: 7-Patient Refused. 9-Not Applicable-not attempted and the patient did not perform the activity before the current illness, exacerbation or injury. 10-Not Attempted due to Environmental Limitations-(lack of equipment, weather restraints, etc.). 88-Not Attempted due to Medical Conditions or Safety Concerns. Weight Bearing Full Weight Bearing Full Weight Bearing Exercises Supine Ex: Ankle pumps, Quad Set, Glut sets, Heel Slides, Straight leg raise, Hip abd/add Supine Reps: 15 Treatments Pt completes Supine EX with RB as needed. Pt resting in bed with all needs met, call light in hand. Assessment Current Status: Fair Progress Pt is limited by lack of BM causing abdominal discomfort. PT Short Term Goals Short Term Goals Time Frame: Dec 25, 2021 Roll Left & Right: 6 Sit to lyin Lying to sitting on side of be: 6 Sit to stand: 4 (SBA) Chair/dmj-sg-dqndn transfer: 4 (SBA) Walk 10 feet: 4 (SBA) Walk 50 feet with two turns: 4 (SBA) Walk 150 feet: 4 (SBA) PT Nursing Home Goals [place] Spreader Goals PT Nursing Home Goals Time Frame: Jan 08, 2022 Roll Left & Right (QC): 6 Sit to Lying (QC): 6 Lying-Sitting on Side/Bed(QC): 6 Sit to Stand (QC): 6 Chair/Mir-rc-Kxxyi Xfer(QC): 6 Toilet Transfer (QC): 6 Car Transfer (QC): 6 Does the Patient Walk: Yes Walk 10 feet (QC): 6 Walk 50ft with 2 Turns (QC): 6 Walk 150 ft (QC): 6 Walking 10ft on Uneven Surface: 6 1 Step (curb) (QC): 6 4 Steps (QC): 6 12 Steps (QC): 6 Picking up an Object (QC): 6 Wheel 50 feet with 2 turns (QC: 9 Wheel 150 feet: 9 PT Plan Problem List Problem List: Activity Tolerance Treatment/Plan Treatment Plan: Continue Plan of Care Treatment Plan: Education, Functional Activity Melo, Functional Strength, Group Therapy, Gait, Safety, Therapeutic Exercise, Transfers Treatment Duration: Jan 08, 2022 Frequency: At least 5 of 7 days/Wk (IRF) Estimated Hrs Per Day: 1.5 hours per day Patient and/or Family Agrees t: Yes Time/GCodes Time In: 1330 Time Out: 1400 Total Billed Treatment Time: 30 Total Billed Treatment 1, EX x2 (30m) ABBI Y[address] TRAFFIC CONTROL TECHNICIAN Dec 25, 2021 14:50
[2021-12-25 19:53] VITALS: BP 150/77
[2021-12-26] MEDS: CATHETER FLUSH 10 ML SYR IVP SCH ×3 (05:50→21:45)
[2021-12-26] MEDS: KCL 20 MEQ TAB (K-DUR) PO SCH (05:50)
--- NOTE | 2021-12-26 06:11 | PM&R Progress Note ---
Subjective HPI/CC On Admission Date Seen by Provider: Dec 26, 2021 Time Seen by Provider: 11:00 Subjective/Events-last exam 12/26/2021: CT reveals no obstruction Tube feedings restarted Patient will need to discharge soon and pursue cancer treatment 12/25/2021: Still having issues with constipation Dr Quintero will evaluate No pain otherwise 12/24/2021: Still constipated Loose stools going around the constipation area in the colon Monitor closely 12/23/2021: Multiple BM's noted after mag citrate at 1000pm No falls Pain controlled Fentanyl patch maintained 12/22/2021: Patient doing the same Mag citrate ordered by Dr. Quintero Appreciate Dr. Quintero's assistance Supportive care will continue 12/21/2021: Patient having abdominal pain Constipation is likely an issue but could be ileus for esophageal cancer with obstruction We will check x-ray and consult Dr. Quintero 12/20/2021: Patient doing much better Fentanyl patch has made a huge difference No pain is reported right now Tolerating PEG tube feedings Minimal emesis 12/19/2021: Patient doing better except for the pain Starting fentanyl patch because extended release pills can't go through PEG tube Emesis at times which is an issue that occurred at [facility] Walking around pretty well Supportive care will continue Review of Systems General: Fatigue, Malaise Gastrointestinal: Abdominal Pain Objective Exam Vital Signs Vital Signs Date Time Temp Pulse Resp B/P (MAP) Pulse Ox O2 Delivery O2 Flow Rate FiO2 12/26/21 21:30 97 Room Air 12/26/21 19:59 36.8 75 16 125/77 (93) Capillary Refill : General Appearance: No Apparent Distress, WD/WN, Chronically ill, Thin HEENT: PERRL/EOMI, Normal ENT Inspection, Pharynx Normal Neck: Full Range of Motion, Normal Inspection, Non Tender, Supple, Carotid Bruit Respiratory: Chest Non Tender, Lungs Clear, Normal Breath Sounds, No Accessory Muscle Use, No Respiratory Distress Cardiovascular: Regular Rate, Rhythm, No Edema, No Gallop, No JVD, No Murmur, Normal Peripheral Pulses Gastrointestinal: Normal Bowel Sounds, No Organomegaly, No Pulsatile Mass, Non Tender, Soft, Other (PEG tube in place) Back: Normal Inspection, No CVA Tenderness, No Vertebral Tenderness Extremity: Normal Capillary Refill, Normal Inspection, Normal Range of Motion, Non Tender, No Calf Tenderness, No Pedal Edema Neurologic/Psychiatric: Alert, Oriented x3, No Motor/Sensory Deficits, aerosol supervisor II- XII Norm as Tested, Depressed Affect, Motor Weakness (Generalized) Skin: Normal Color, Warm/Dry Lymphatic: No Adenopathy Results/Procedures Lab Patient resulted labs reviewed. FIM Transfers Therapy Code Descriptions/Definitions Functional [place] Measure: 0=Not Assessed/NA 4=Minimal Assistance 1=Total Assistance 5=Supervision or Setup 2=Maximal Assistance 6=Modified [place] 3=Moderate Assistance 7=Complete IndependenceSCALE: Activities may be completed with or without assistive devices. 0-Qcspfyiwyg-wgcufro completes the activity by him/herself with no assistance from a helper. 5-Set-up or Clean-up Assistance-helper sets up or cleans up; patient completes activity. [place] assists only prior to or following the activity. 4-Supervision or Touching Assistance-helper provides verbal cues and/or touching/steadying and/or contact guard assistance as patient completes activity. Assistance may be provided throughout the activity or intermittently. 3-Partial/Moderate Assistance-helper does LESS THAN HALF the effort. [place] lifts, holds or supports trunk or limbs, but provides less than half the effort. 2-Substantial/Maximal Assistance-helper does MORE THAN HALF the effort. [place] lifts or holds trunk or limbs and provides more than half the effort. 7-Twghdabfy-onrkfa does ALL the effort. Patient does none of the effort to compl ete the activity. Or, the assistance of 2 or more helpers is required for the patient to complete the activity. If activity was not attempted, code reason: 7-Patient Refused. 9-Not Applicable-not attempted and the patient did not perform the activity before the current illness, exacerbation or injury. 10-Not Attempted due to Environmental Limitations-(lack of equipment, weather restraints, etc.). 88-Not Attempted due to Medical Conditions or Safety Concerns. Roll Left to Right (QC): 6 Sit to Lying (QC): 5 Sit to Stand (QC): 5 Chair/Lib-gk-Upqlg Xfer(QC): 4 Car Transfer (QC): 4 Gait Training Does the Patient Walk?: Yes Distance: 500', 150' Walk 10 feet (QC): 5 Walk 50 ft with 2 Turns(QC): 5 Walk 150 ft (QC): 5 Walking 10ft/uneven surface-QC: 4 Gait Persons Needed: 1 Gait Assistive Device: FWW Wheelchair Training Does the Pt Use a Wheelchair?: Yes Wheel 50 ft with 2 turns (QC): 4 Wheel 150 ft (QC): 4 Type of Wheelchair: Manual Stair Training #of Steps: 4 1 Step (curb) (QC): 4 4 Steps (QC): 4 12 Steps (QC): 88 Balance Picking up an Object (QC): 4 (CGA without using a safety representative) ADL-Treatment Eating (QC): 88 (PEG tube) Oral Hygiene (QC): 6 (Per clinical judgment, pt would be able to complete task independently. Pt doesn't have his dentures with him so declines task.) Shower/Bathe Self (QC): 5 (set up to cover port prior to shower.) Upper Body Dressing (QC): 5 (set up, OT assisted with managing IV lines attached to port on chest.) Lower Body Dressing (QC): 5 (set up) On/Off Footwear (QC): 6 (IND don/doff gripper socks.) Toileting Hygiene (QC): 6 (IND) Toilet Transfer (QC): 6 (IND with GBs.) Assessment/Plan Assessment and Plan Assess & Plan/Chief Complaint Assessment: Debility Profound weight loss Esophageal cancer with widespread metastasis Dysphagia Chronic pain Hyperlipidemia Hyponatremia placed on fluid restriction Abdominal pain work-up in process 12/21/2021 dx with narcotic bowel and still large amount of stool in colon reviewed CT per Dr Quintero showing no obstruction Plan: Fluid restriction Supportive care Tube feedings PT and OT 12/19/2021: Add fentanyl patch Supportive care 12/20/2021: Continue fentanyl patch Monitor closely 12/21/2021: Consult Dr. Quintero Abdominal x-ray 12/22/2021: Mag citrate Aggressive bowel regimen 12/23/2021: Continue laxatives Monitor closely 12/24/2021: Dr Quintero appreciated 12/25/2021: CT abd pelvis 12/26/2021: Fentanyl patch Discharge home soon in order to pursue cancer treatment which will be palliative at best (1) Debility CALVIN OVERTON DO Dec 26, 2021 06:11
[2021-12-26 07:19] VITALS: BP 139/77
[2021-12-26] MEDS: PANTOPRAZOLE 2 MG/ML LIQUID 200 ML (PROTONIX) PEG SCH ×6 (07:43→21:40)
[2021-12-26] MEDS: ACETAMINOPHEN ER 650 MG (TYLENOL ARTHRITIS) PO PRN ×3 (07:44→21:54)
--- NOTE | 2021-12-26 08:57 | Occupational Ther Daily Note ---
OT Current Status-Daily Note Subjective Pt in bed, agreeable to OT tx. Nurse present to provide medications, indicates pt will be leaving floor for CT later this AM. Mental Status/Objective Patient Orientation: Person, Place, Situation Attachments: PEG Tube ADL-Treatment Therapy Code Descriptions/Definitions Functional [place] Measure: 0=Not Assessed/NA 4=Minimal Assistance 1=Total Assistance 5=Supervision or Setup 2=Maximal Assistance 6=Modified [place] 3=Moderate Assistance 7=Complete IndependenceSCALE: Activities may be completed with or without assistive devices. 6-Aalojpoahc-ghiznxz completes the activity by him/herself with no assistance from a helper. 5-Set-up or Clean-up Assistance-helper sets up or cleans up; patient completes activity. [place] assists only prior to or following the activity. 4-Supervision or Touching Assistance-helper provides verbal cues and/or touching/steadying and/or contact guard assistance as patient completes activity. Assistance may be provided throughout the activity or intermittently. 3-Partial/Moderate Assistance-helper does LESS THAN HALF the effort. [place] lifts, holds or supports trunk or limbs, but provides less than half the effort. 2-Substantial/Maximal Assistance-helper does MORE THAN HALF the effort. [place] lifts or holds trunk or limbs and provides more than half the effort. 5-Qvfwukfes-ernviu does ALL the effort. Patient does none of the effort to complete the activity. Or, the assistance of 2 or more helpers is required for the patient to complete the activity. If activity was not attempted, code reason: 7-Patient Refused. 9-Not Applicable-not attempted and the patient did not perform the activity before the current illness, exacerbation or injury. 10-Not Attempted due to Environmental Limitations-(lack of equipment, weather restraints, etc.). 88-Not Attempted due to Medical Conditions or Safety Concerns. Toileting Hygiene (QC): 6 Other Treatment Pt in bed, agreeable to OT tx. Pt's nurse present providing medication through PEG tube, pt able to assist with managing/holding peg tube throughout medication administration. OT/PT cotreat due to skill of 2 clinicians which a rehabilitation aide/scheduler could not perform in order to coordinate UE/LEs, decrease fall risk and focus on higher level balance activities. OT focused on UE placement, cues for sequencing and safety, PT focused on LE placement, dynamic standing balance, and gross overall movements. Pt transferred supine to sit EOB, then used FWW to go into bathroom and transfer to toilet. Pt completed toileting, then performed functional mobility around [facility] common area/2nd floor and into therapy gym. Pt completed balloon batting activity, reaching BUEs in all planes, no UE support throughout task. Pt has LOB a couple of times during task, requiring min A to correct. Pt completed x3 rounds of balloon batting, 5 mins each. Pt then stood in parallel bars on airex, completing bimanual nut/bolt activity. Pt completed x16 nuts/bolts, with 1 seated rest break, SBA for balance. Post tx, pt in gym with PT, all needs met. Education OT Patient Education: Correct positioning, Energy conservation, Modified ADL techniques, Progress toward Goal/Update tx plan, Purpose of tx/functional activities Teaching Recipient: Patient Teaching Methods: Discussion Response to Teaching: Verbalize Understanding OT Short Term Goals Short Term Goals Time Frame: Dec 25, 2021 Eatin Oral hygiene: 4 Toileting hygiene: 5 Shower/bathe self: 3 Upper body dressin Lower body dressin Putting on/taking off footwear: 4 OT Plastic Boat Patcher Goals Correction Goals Time Frame: Dec 31, 2021 Eating (QC): 88 Oral Hygiene (QC): 5 Toileting Hygiene (QC): 6 Shower/Bathe Self (QC): 5 Upper Body Dressing (QC): 6 Lower Body Dressing (QC): 6 On/Off Footwear (QC): 6 1=Demonstrate adherence to instructed precautions during ADL tasks. 2=Patient will verbalize/demonstrate understanding of assistive devices/modifications for ADL. 3=Patient will improve strength/tolerance for activity to enable patient to perform ADL's. OT Education/Plan Problem List/Assessment Assessment: Decreased Activ Tolerance, Decreased UE Strength, Impaired Funct Balance, Impaired I ADL's Discharge Recommendations Plan/Recommendations: Continue POC Treatment Plan/Plan of Care Patient would benefit from OT for education, treatment and training to promote independence in ADL's, mobility, safety and/or upper extremity function for ADL's. Plan of Care: ADL Retraining, Concurrent Therapy, Functional Mobility, Group Exercise/Act as Ind, UE Funct Exercise/Act Treatment Duration: Dec 31, 2021 Frequency: At least 5 of 7 days/Wk (IRF) Estimated Hrs Per Day: 1.5 hours per day (75-90 min/day ) Agreement: Yes Rehab Potential: Guarded Time/GCodes Start Time: 07:45 Stop Time: 09:00 Total Time Billed (hr/min): 75 Billed Treatment Time OT tx x15', cotreat x60' for higher level balance activities 1, ADL (20'), FA 4 (55') FRANCINE DUEÑAS OT Dec 26, 2021 08:57
[2021-12-26] MEDS ORDERED: DIATRIZOATE MEGLUM/SODIUM 37% 120 ML (GASTROGRAFIN) PO NR (09:00)
--- NOTE | 2021-12-26 09:15 | Physical Therapy Daily Note ---
PT Daily Note-Current Subjective Patient in bed pre tx, agrees to PT, has unrated pain in abdomen. Will be co- treating with OT due to working on more advanced balance activities, bowel issues, impaired mobility, strength, endurance, coordinate UE and LE during activity, safety and reduce risk of falls. Appearance Patient in bed post tx with nurse call, phone, tray, all needs met. Mental Status Patient Orientation: Person, Place, Situation Attachments: PEG Tube Transfers SCALE: Activities may be completed with or without assistive devices. 5-Qwjnosmess-dyrrbjn completes the activity by him/herself with no assistance from a helper. 5-Set-up or Clean-up Assistance-helper sets up or cleans up; patient completes activity. [place] assists only prior to or following the activity. 4-Supervision or Touching Assistance-helper provides verbal cues and/or touching/steadying and/or contact guard assistance as patient completes activity. Assistance may be provided throughout the activity or intermittently. 3-Partial/Moderate Assistance-helper does LESS THAN HALF the effort. [place] lifts, holds or supports trunk or limbs, but provides less than half the effort. 2-Substantial/Maximal Assistance-helper does MORE THAN HALF the effort. [place] lifts or holds trunk or limbs and provides more than half the effort. 8-Lhsbrugiu-kcmxpl does ALL the effort. Patient does none of the effort to complete the activity. Or, the assistance of 2 or more helpers is required for the patient to complete the activity. If activity was not attempted, code reason: 7-Patient Refused. 9-Not Applicable-not attempted and the patient did not perform the activity before the current illness, exacerbation or injury. 10-Not Attempted due to Environmental Limitations-(lack of equipment, weather restraints, etc.). 88-Not Attempted due to Medical Conditions or Safety Concerns. Roll Left & Right (QC): 6 Sit to Lying (QC): 6 Lying to Sitting/Side of Bed(Q: 6 Sit to Stand (QC): 4 Chair/Nvx-tc-Ipxgj Xfer(QC): 4 Toilet Transfer (QC): 4 Patient ambulates into the restroom to have a BM, does so, doesn't need assist for wiping. Weight Bearing Full Weight Bearing Full Weight Bearing Gait Training Distance: 150'x3 Walk 10 feet (QC): 4 Walk 50 ft with 2 Turns(QC): 4 Walk 150 ft (QC): 4 Gait Persons Needed: 1 Gait Assistive Device: FWW SBA, slow but steady ambulation Exercises Standing balloon batting without support 5 min x3, standing on airex while performing UE activity NuStep Minutes: 15 NuStep Workload: 5 Treatments PT performed bed mobility and transfers, ambulation, toileting, functional strengthening, standing and balance during balloon and UE activity, OT performed toileting, UE activity, balloon activity, UE positioning and safety during activity. Assessment Current Status: Fair Progress Patient had a couple of unsteady moments requiring assist from therapist to maintain balance during balloon activity PT Short Term Goals Short Term Goals Time Frame: Dec 25, 2021 Roll Left & Right: 6 Sit to lyin Lying to sitting on side of be: 6 Sit to stand: 4 (SBA) Chair/xwf-bz-hajvg transfer: 4 (SBA) Walk 10 feet: 4 (SBA) Walk 50 feet with two turns: 4 (SBA) Walk 150 feet: 4 (SBA) PT Right Of Way Supervisor Goals Right Of Way Supervisor Goals PT Right Of Way Supervisor Goals Time Frame: Jan 08, 2022 Roll Left & Right (QC): 6 Sit to Lying (QC): 6 Lying-Sitting on Side/Bed(QC): 6 Sit to Stand (QC): 6 Chair/Zyt-se-Fshze Xfer(QC): 6 Toilet Transfer (QC): 6 Car Transfer (QC): 6 Does the Patient Walk: Yes Walk 10 feet (QC): 6 Walk 50ft with 2 Turns (QC): 6 Walk 150 ft (QC): 6 Walking 10ft on Uneven Surface: 6 1 Step (curb) (QC): 6 4 Steps (QC): 6 12 Steps (QC): 6 Picking up an Object (QC): 6 Wheel 50 feet with 2 turns (QC: 9 Wheel 150 feet: 9 PT Plan Problem List Problem List: Activity Tolerance, Functional Strength, Safety, Balance, Gait, Transfer, ROM Treatment/Plan Treatment Plan: Continue Plan of Care Treatment Plan: Education, Functional Activity Melo, Functional Strength, Group Therapy, Gait, Safety, Therapeutic Exercise, Transfers Treatment Duration: Jan 08, 2022 Frequency: At least 5 of 7 days/Wk (IRF) Estimated Hrs Per Day: 1.5 hours per day Patient and/or Family Agrees t: Yes Safety Risks/Education Patient Education: Gait Training, Transfer Techniques, Correct Positioning, Safety Issues Teaching Recipient: Patient Teaching Methods: Demonstration, Discussion Response to Teaching: Reinforcement Needed Time/GCodes Time In: 0800 Time Out: 914 Total Billed Treatment Time: 75 Total Billed Treatment 1 visit EX 45' FA 30' GORAN DE ANDA PT Dec 26, 2021 09:15
[2021-12-26] MEDS: LACTULOSE SYRUP 10GM/15ML (ENULOSE) 30ML UDC PEG SCH (10:05)
[2021-12-26] MEDS: DOCUSATE SODIUM 10 MG/ML 10 ML UDC (COLACE) PO SCH ×2 (10:06→21:43)
[2021-12-26] MEDS: polyethylene glycoL POWDER 17 GM (MIRALAX) PACK PO SCH (10:07)
--- NOTE | 2021-12-26 10:41 | Diagnostic Imaging Report ---
PROCEDURE: CT abdomen and pelvis without contrast. TECHNIQUE: Multiple contiguous axial images were obtained through the abdomen and pelvis without the use of intravenous contrast. Auto Exposure Controls were utilized during the CT exam to meet ALARA standards for radiation dose reduction. INDICATION: History of esophageal cancer. Abdominal pain. COMPARISON: None. FINDINGS: Included portions of the lung bases show moderate bilateral effusions with associated atelectasis. Note is also made of severe circumferential mass-like thickening of the esophageal wall extending to the gastroesophageal junction. Full extent of the thickening is not included in the [id number]. CT ABDOMEN: Large mass is identified within segment II of the liver extending into segment III. It measures 8 x 9.7 cm. Multiple other smaller hypodense masses are also noted scattered throughout the remainder of the liver. Additional moderate-sized lesion is seen within segment of the liver and measures 4.6 x 4.8 cm. Multiple retroperitoneal masses/adenopathy are also identified. Near the gastroesophageal junction, just below the hiatus, there is a 3 x 3.2 cm mass versus enlarged lymph node. Several other conglomerate matted enlarged retroperitoneal lymph nodes are seen more inferiorly. Several enlarged mesenteric lymph nodes are also present. Kidneys, adrenal glands, spleen, and pancreas have an unremarkable noncontrast CT appearance. Indwelling PEG tube is noted. Contrast was injected to the PEG tube and opacifies the lumen of the stomach. Small bowel loops are nondistended. Normal appendix is identified. There is small amount of ascites scattered throughout the abdomen and pelvis. There is no loculated fluid collection or free air. Moderate diffuse calcified aortic and arterial atherosclerosis is also noted. Osseous structures show no acute abnormalities. CT PELVIS: Urinary bladder is unopacified and minimally distended. No calculi are seen within the urinary bladder. There is small amount of free fluid within the pelvis. There is no loculated fluid collection or free air. There is generalized anasarca. Osseous structures show no acute abnormalities. IMPRESSION: 1. Circumferential mass-like thickening of the included portions of the distal esophagus. This likely corresponds to provided clinical history of esophageal cancer. 2. Metastatic disease to the liver. Multiple metastatic mesenteric and retroperitoneal lymph nodes are also identified within the abdomen. 3. Moderate bilateral pleural effusions. 4. Mild scattered ascites. 5. Indwelling PEG tube is identified and appears appropriately positioned and patent. Dictated by: Dictated on workstation # [id number]
[2021-12-26] MEDS: SODIUM CHLORIDE 1 GM TABLET PO SCH ×4 (11:10→21:43)
--- NOTE | 2021-12-26 13:15 | Speech Therapy Daily Note ---
Speech Daily Progress Note Subjective Date Seen by Provider: Dec 26, 2021 Time Seen by Provider: 10:00 The patient was seated upright in bed, awake and alert upon entrance to his room by the clinician. The patient greeted the clinician appropriately and was agreeable to participation in the cognitive linguistic and dysphagia treatment session. Objective Expression of Ideas/Wants: 4 Understanding Verbal Content: 4 Brief Interview-Mental Status: Yes Repetition of Three Words: Three (3) Temporal Orientation: Year: Correct (3) Temporal Orientation: Month: Accurate within 5 days(2) Temporal Orientation: Day: Correct (1) Recall : Wear to say "Sock": Yes, no cue required (2) Recall : Color: Yes, no cue required (2) Recall : Bed: Yes, no cue required (2) Memory/Recall Ability: Current season, That he or she is in a hsp/hsp unit, Room number, staff names The patient and clinician completed a review of his safe swallowing strategies and his pharyngeal swallowing exercises. The patient is able to state his safe swallowing strategies independently, as well as, complete the effortful swallow and Ember swallowing exercises without verbal prompting or direct modeling from the clinician. One this date, the patient responded appropriately to safety scenarios in the home. The patient was able to identify the safety concern and provide an appropriate solution, independently. Assessment Assessment Current Status: Good Progress Treatment Plan Discontinue ST Speech Short Term Goals Short Term Goals Short Term Goals 1. The patient will demonstrate 80% accuracy with memory exercises with mild clinician verbal cueing. 2. The patient will follow safe swallowing strategies with 90% accuracy, independently. Time Frame-STG: One Week. Speech Wheat Grower Goals Wheat Grower Goals 1. The patient will demonstrate improved cognitive linguistic function for safe discharge to the least restrictive environment. 2. The patient will tolerate the least restrictive diet consistency without s/s of suspected aspiration. Time Frame: Ten Days. Speech-Plan Treatment Plan Speech Therapy Treatment Plan: Discontinue ST Treatment Duration: Dec 19, 2021 Frequency: Modified Program (IRF) Estimated Hrs Per Day: Other Rehab Potential: Guarded Safety Risks/Education Teaching Recipient: Patient Teaching Methods: Demonstration, Discussion Response to Teaching: Verbalize Understanding, Return Demonstration Education Topics Provided: Dysphagia Exercises, Plan of Care Time Speech Therapy Time In: 10:00 Speech Therapy Time Out: 10:30 Total Billed Time: 30 Billed Treatment Time NICK Ralph DYST LOY, ELIZ[facility] ST Dec 26, 2021 13:15
--- NOTE | 2021-12-26 13:15 | Therapy Team Discharge Summary ---
Therapy Discharge Summary Discharge Recommendations Date of Discharge Physical Therapy Roll Left to Right (QC): 6 Sit to Lying (QC): 6 Lying to Sitting/Side of Bed(Q: 6 Sit to Stand (QC): 4 Chair/Huh-ng-Jzvsx Xfer(QC): 4 Toilet Transfer (QC): 4 Car Transfer (QC): 4 Does the Patient Walk: Yes Mode of Locomotion: Walk Anticipated Mode of Locomotion: Walk Walk 10 feet (QC): 4 Walk 50 ft with 2 Turns(QC): 4 Walk 150 ft (QC): 4 Walking 10ft on uneven surface: 4 Distance: 150'x2, 120'x3 Gait Assistive Device: FWW Does the Pt Use a Wheelchair: Yes Wheel 50 ft with 2 turns (QC): 4 Wheel 150 ft (QC): 4 Type of Wheelchair: Manual #of Steps: 4 1 Step (curb) (QC): 4 4 Steps (QC): 4 12 Steps (QC): 88 Balance Sitting Static: Normal Balance Sitting Dynamic: Normal Balance-Standing Static: Fair Picking up an Object (QC): 4 (CGA without using a flight engineer instructor) Occupational Therapy Decreased Activ Tolerance, Decreased UE Strength, Impaired Funct Balance, Impaired I ADL's Eating (QC): 88 (PEG tube) Oral Hygiene (QC): 6 (Per clinical judgment, pt would be able to complete task independently. Pt doesn't have his dentures with him so declines task.) Shower/Bathe Self (QC): 5 (set up to cover port prior to shower.) Upper Body Dressing (QC): 5 (set up, OT assisted with managing IV lines attached to port on chest.) Lower Body Dressing (QC): 5 (set up) On/Off Footwear (QC): 6 (IND don/doff gripper socks.) Toileting Hygiene (QC): 6 Speech-Language Pathology Expression of Ideas/Wants: 4 Understanding Verbal Content: 4 Brief Interview-Mental Status: Yes Repetition of Three Words: Three (3) Temporal Orientation: Year: Correct (3) Temporal Orientation: Month: Accurate within 5 days(2) Temporal Orientation: Day: Correct (1) Recall : Wear to say "Sock": Yes, no cue required (2) Recall : Color: Yes, no cue required (2) Recall : Bed: Yes, no cue required (2) Memory/Recall Ability: Current season, That he or she is in a hsp/hsp unit, Room number, staff names PT Software Design Engineer Goals Software Design Engineer Goals PT Software Design Engineer Goals Time Frame: Jan 08, 2022 Roll Left to Right (QC): 6 Sit to Lying (QC): 6 Lying-Sitting on Side/Bed(QC): 6 Sit to Stand (QC): 6 Chair/Svp-nu-Jmivq Xfer(QC): 6 Car Transfer (QC): 6 Does the Patient Walk: Yes Walk 10 feet (QC): 6 Walk 10ft-Uneven Surface(QC): 6 Walk 50ft with 2 Turns (QC): 6 Walk 150 ft (QC): 6 Wheel 50 feet with 2 turns (QC: 9 1 Step (curb) (QC): 6 4 Steps (QC): 6 12 Steps (QC): 6 Picking up an Object (QC): 6 OT [facility] Goals Software Design Engineer Goals Time Frame: Dec 31, 2021 Eating (QC): 88 Oral Hygiene (QC): 5 Shower/Bathe Self (QC): 5 Upper Body Dressing (QC): 6 Lower Body Dressing (QC): 6 On/Off Footwear (QC): 6 Toileting Hygiene (QC): 6 Toilet/Commode Transfer (QC): 6 1=Demonstrate adherence to instructed precautions during ADL tasks. 2=Patient will verbalize/demonstrate understanding of assistive devices/modifications for ADL. 3=Patient will improve strength/tolerance for activity to enable patient to perform ADL's. Speech [facility] Goals Software Design Engineer Goals 1. The patient will demonstrate improved cognitive linguistic function for safe discharge to the least restrictive environment. 2. The patient will tolerate the least restrictive diet consistency without s/s of suspected aspiration. Expression of Ideas/Wants: 4 Understanding Verbal Content: 4 Brief Interview-Mental Status: Yes Repetition of Three Words: Three (3) Temporal Orientation: Year: Correct (3) Temporal Orientation: Month: Accurate within 5 days(2) Temporal Orientation: Day: Correct (1) Recall : Wear to say "Sock": Yes, no cue required (2) Recall : Color: Yes, no cue required (2) Recall : Bed: Yes, no cue required (2) Memory/Recall Ability: Current season, That he or she is in a hsp/hsp unit, Room number, staff names Time Frame: Ten Days. JUVE RAZO Dec 26, 2021 13:15
--- NOTE | 2021-12-26 15:52 | Progress Note - Surgery ---
Subjective Date Seen by a Provider: Dec 26, 2021 Time Seen by a Provider: 07:59 Subjective/Events-last exam Less abdominal pain. Liquid stools. Pain 05/06. Tube feeds on hold. No new complaints. Denies n/v fever sweats chills shortness of breath or chest pain at this time. Objective Exam Vital Signs Date Time Temp Pulse Resp B/P (MAP) Pulse Ox O2 Delivery O2 Flow Rate FiO2 12/26/21 09:38 Room Air 12/26/21 07:19 36.6 77 16 139/77 (97) 96 Room Air 12/25/21 21:00 95 Room Air 12/25/21 19:53 37.4 84 18 150/77 (101) 95 Room Air I & O 12/26/21 07:00 Intake Total 790 ml Output Total 1925 ml Balance -1135 ml Capillary Refill : General Appearance: No Apparent Distress, WD/WN, Chronically ill, Thin HEENT: PERRL/EOMI, Normal ENT Inspection, Pharynx Normal Neck: Full Range of Motion, Normal Inspection, Non Tender, Supple, Carotid Bruit Respiratory: Chest Non Tender, No Accessory Muscle Use, No Respiratory Distress Cardiovascular: Regular Rate, Rhythm, No JVD Gastrointestinal: soft, tenderness (minimal, does not appear to have much pain on palpation. gastrostomy tube luq) Extremity: Normal Inspection, Non Tender, No Calf Tenderness, No Pedal Edema Neurologic/Psychiatric: Alert, Oriented x3, No Motor/Sensory Deficits, tool shaper set up operator II- XII Norm as Tested, Depressed Affect, Motor Weakness (Generalized) Skin: Normal Color, Warm/Dry Lymphatic: No Adenopathy Assessment/Plan Assessment/Plan Assessment/Plan Esophageal cancer with widespread metastasis Dysphagia Chronic pain Abdominal pain diffuse Constipation Continue bowel regimen and ambulation with PT tube feeds on hold await CT scan of the abdomen pelvis with oral contrast Further recommendations pending results of CT if no obstruction plan restarting tube feeds bowel regimen already ordered. EDUARD SINGH DO Dec 26, 2021 15:52
[2021-12-26 19:59] VITALS: BP 125/77
[2021-12-27] MEDS: CATHETER FLUSH 10 ML SYR IVP SCH ×3 (05:10→22:23)
[2021-12-27] MEDS: KCL 20 MEQ TAB (K-DUR) PO SCH (05:48)
[2021-12-27 07:24] VITALS: BP 131/75
--- NOTE | 2021-12-27 07:59 | Progress Note - Surgery ---
CHEP[place]ANCHO 12/27/21 0759: Subjective Date Seen by a Provider: Dec 27, 2021 Time Seen by a Provider: 07:58 Subjective/Events-last exam Patient is awake and alert this morning. Patient reports no new issues. Objective Exam Vital Signs Date Time Temp Pulse Resp B/P (MAP) Pulse Ox O2 Delivery O2 Flow Rate FiO2 12/27/21 07:24 36.9 82 18 131/75 (93) 96 Room Air 12/26/21 21:30 97 Room Air 12/26/21 19:59 36.8 75 16 125/77 (93) 97 Room Air 12/26/21 09:38 Room Air I & O 12/27/21 07:00 Intake Total 1340 ml Output Total 1150 ml Balance 190 ml Capillary Refill : General Appearance: No Apparent Distress, WD/WN, Chronically ill, Thin HEENT: PERRL/EOMI, Normal ENT Inspection, Pharynx Normal Neck: Full Range of Motion, Normal Inspection, Non Tender, Supple, Carotid Bruit Respiratory: Chest Non Tender, Lungs Clear, Normal Breath Sounds, No Accessory Muscle Use, No Respiratory Distress Cardiovascular: Regular Rate, Rhythm, No Edema, No Gallop, No JVD, No Murmur, Normal Peripheral Pulses Gastrointestinal: soft, tenderness (minimal, does not appear to have much pain on palpation. gastrostomy tube luq) Extremity: Normal Capillary Refill, Normal Inspection, Normal Range of Motion, Non Tender, No Calf Tenderness, No Pedal Edema Neurologic/Psychiatric: Alert, Oriented x3, No Motor/Sensory Deficits, process validation engineer II- XII Norm as Tested, Depressed Affect, Motor Weakness (Generalized) Skin: Normal Color, Warm/Dry Lymphatic: No Adenopathy Assessment/Plan Assessment/Plan Assessment/Plan Esophageal cancer with widespread metastasis Dysphagia Chronic pain Abdominal pain diffuse Constipation Continue bowel regimen and ambulation with PT Further recommendations pending results of CT if no obstruction plan restarting tube feeds bowel regimen already ordered. EDUARD QUINTERO DO 12/27/213: Subjective Subjective/Events-last exam Patient on tube feeds. Having bowel movements. Pain about same as yesterday. Denies any new complaints. Denies n/v fever sweats chills shortness of breath or chest pain. Objective Exam General Appearance: No Apparent Distress, Chronically ill, Thin HEENT: PERRL/EOMI, Normal ENT Inspection Neck: Non Tender, Supple Respiratory: Chest Non Tender, No Accessory Muscle Use, No Respiratory Distress Gastrointestinal: soft, tenderness (minimal, does not appear to have much pain on palpation. gastrostomy tube luq) Extremity: Non Tender, No Pedal Edema Neurologic/Psychiatric: Alert, Oriented x3, Depressed Affect, Motor Weakness (Generalized) Skin: Normal Color, Warm/Dry Lymphatic: No Adenopathy Assessment/Plan Assessment/Plan Assessment/Plan Esophageal cancer with widespread metastasis Dysphagia Chronic pain Abdominal pain diffuse Constipation Continue bowel regimen and ambulation with PT Ct no obstruction, evidence of metastatic disease. I think this is causing his pain/discomfort. no obstruction was started on tube feeds and currently tolerating. bowel regimen already ordered. will see periodically, if needed please call. Supervisory-Addendum Brief Verification & Attestation Participated in pt care: history, MDM, physical Personally performed: exam, history, MDM, supervision of care Care discussed with: Medical Student Procedures: n/a Results interpretation: Verified all documentation Verification and Attestation of Medical Student E/M Service A medical student performed and documented this service in my presence. I reviewed and verified all information documented by the medical student and made modifications to such information, when appropriate. I personally performed the physical exam and medical decision making. Eduard Quintero, Dec 27, 2021,21:43 [place] Dec 27, 2021 07:59 EDUARD QUINTERO DO Dec 27, 2021 21:43
--- NOTE | 2021-12-27 08:31 | Occupational Ther Daily Note ---
OT Current Status-Daily Note Subjective Pt rated pain as 10/10 in abdomen, states he had pain medication earlier but it didn't seem to help. Nurse notified Mental Status/Objective Patient Orientation: Person, Place, Time, Situation Attachments: PEG Tube ADL-Treatment Therapy Code Descriptions/Definitions Functional [place] Measure: 0=Not Assessed/NA 4=Minimal Assistance 1=Total Assistance 5=Supervision or Setup 2=Maximal Assistance 6=Modified [place] 3=Moderate Assistance 7=Complete IndependenceSCALE: Activities may be completed with or without assistive devices. 5-Ecbbzyqcra-qjtstln completes the activity by him/herself with no assistance from a helper. 5-Set-up or Clean-up Assistance-helper sets up or cleans up; patient completes activity. [place] assists only prior to or following the activity. 4-Supervision or Touching Assistance-helper provides verbal cues and/or touching/steadying and/or contact guard assistance as patient completes activity. Assistance may be provided throughout the activity or intermittently. 3-Partial/Moderate Assistance-helper does LESS THAN HALF the effort. [place] lifts, holds or supports trunk or limbs, but provides less than half the effort. 2-Substantial/Maximal Assistance-helper does MORE THAN HALF the effort. [place] lifts or holds trunk or limbs and provides more than half the effort. 1-[place]-snozbm does ALL the effort. Patient does none of the effort to complete the activity. Or, the assistance of 2 or more helpers is required for the patient to complete the activity. If activity was not attempted, code reason: 7-Patient Refused. 9-Not Applicable-not attempted and the patient did not perform the activity before the current illness, exacerbation or injury. 10-Not Attempted due to Environmental Limitations-(lack of equipment, weather restraints, etc.). 88-Not Attempted due to Medical Conditions or Safety Concerns. Eating (QC): 88 Toileting Hygiene (QC): 6 (IND with hygiene and clothing management.) Toilet Transfer (QC): 6 Other Treatment Pt in bed, transferred supine to sit EOB independently, then used FWW to transfer into bathroom and onto toilet. Pt completed toileting, then performed functional mobility to therapy gym, FWW, SBA. OT tx focused on increasing BUE strength and activity tolerance, and increasing fine motor strength and coordination as pt has reported difficulty with buttoning shirts with smaller buttons.. Pt completed x15 mins on arm bike. He then removed beads from moderate resistance (Green) theraputty. Pt completed rubber band activity, 2lb wrist weights bilaterally. Pt placed rubberbands on board, following printed pattern, x5 patterns. Pt placed/removed graded clothespins (1-5 lbs) from horizontal bars, completing x2 sets BUEs. Pt returned to his room using FWW, OT encouraged pt to sit up in recliner, but he refused. Pt transferred to bed and supine independently. Post tx, pt in bed, call light in reach and all needs met. Education OT Patient Education: Correct positioning, Energy conservation, Exercise program, Modified ADL techniques, Progress toward Goal/Update tx plan, Purpose of tx/functional activities, Rehab process Teaching Recipient: Patient Teaching Methods: Discussion Response to Teaching: Verbalize Understanding OT Short Term Goals Short Term Goals Time Frame: Dec 25, 2021 Eatin Oral hygiene: 4 Toileting hygiene: 5 Shower/bathe self: 3 Upper body dressin Lower body dressin Putting on/taking off footwear: 4 OT Retirement Goals Street Inspector Goals Time Frame: Dec 31, 2021 Eating (QC): 88 Oral Hygiene (QC): 5 Toileting Hygiene (QC): 6 Shower/Bathe Self (QC): 5 Upper Body Dressing (QC): 6 Lower Body Dressing (QC): 6 On/Off Footwear (QC): 6 1=Demonstrate adherence to instructed precautions during ADL tasks. 2=Patient will verbalize/demonstrate understanding of assistive devices/modifications for ADL. 3=Patient will improve strength/tolerance for activity to enable patient to per form ADL's. OT Education/Plan Problem List/Assessment Assessment: Decreased Activ Tolerance, Decreased UE Strength, Impaired I ADL's Discharge Recommendations Plan/Recommendations: Continue POC Treatment Plan/Plan of Care Patient would benefit from OT for education, treatment and training to promote independence in ADL's, mobility, safety and/or upper extremity function for ADL's. Plan of Care: ADL Retraining, Concurrent Therapy, Functional Mobility, Group Exercise/Act as Ind, UE Funct Exercise/Act Treatment Duration: Dec 31, 2021 Frequency: At least 5 of 7 days/Wk (IRF) Estimated Hrs Per Day: 1.5 hours per day (75-90 min/day ) Agreement: Yes Rehab Potential: Guarded Time/GCodes Start Time: 08:00 Stop Time: 09:30 Total Time Billed (hr/min): 90 Billed Treatment Time 1, ADL (15'), EX (15'), FA 4 (60') FRANCINE DUEÑAS OT Dec 27, 2021 08:31
[2021-12-27] MEDS: SODIUM CHLORIDE 1 GM TABLET PO SCH ×4 (08:59→22:23)
[2021-12-27] MEDS: PANTOPRAZOLE 2 MG/ML LIQUID 200 ML (PROTONIX) PEG SCH ×6 (09:01→22:22)
[2021-12-27] MEDS: LACTULOSE SYRUP 10GM/15ML (ENULOSE) 30ML UDC PEG SCH (09:29)
[2021-12-27] MEDS: polyethylene glycoL POWDER 17 GM (MIRALAX) PACK PO SCH (10:27)
[2021-12-27] MEDS: DOCUSATE SODIUM 10 MG/ML 10 ML UDC (COLACE) PO SCH ×2 (10:27→22:23)
--- NOTE | 2021-12-27 10:27 | PM&R Progress Note ---
Subjective HPI/CC On Admission Date Seen by Provider: Dec 27, 2021 Time Seen by Provider: 10:30 Subjective/Events-last exam 12/27/2021: Pt is doing really well No new concerns Abdominal pain is from the cancer that has progressed and has nothing to do with an obstruction 12/26/2021: CT reveals no obstruction Tube feedings restarted Patient will need to discharge soon and pursue cancer treatment 12/25/2021: Still having issues with constipation Dr Quintero will evaluate No pain otherwise 12/24/2021: Still constipated Loose stools going around the constipation area in the colon Monitor closely 12/23/2021: Multiple BM's noted after mag citrate at 1000pm No falls Pain controlled Fentanyl patch maintained 12/22/2021: Patient doing the same Mag citrate ordered by Dr. Quintero Appreciate Dr. Quintero's assistance Supportive care will continue 12/21/2021: Patient having abdominal pain Constipation is likely an issue but could be ileus for esophageal cancer with obstruction We will check x-ray and consult Dr. Quintero 12/20/2021: Patient doing much better Fentanyl patch has made a huge difference No pain is reported right now Tolerating PEG tube feedings Minimal emesis 12/19/2021: Patient doing better except for the pain Starting fentanyl patch because extended release pills can't go through PEG tube Emesis at times which is an issue that occurred at [facility] Walking around pretty well Supportive care will continue Review of Systems General: Fatigue, Malaise Gastrointestinal: Abdominal Pain Objective Exam Vital Signs Vital Signs Date Time Temp Pulse Resp B/P (MAP) Pulse Ox O2 Delivery O2 Flow Rate FiO2 12/27/21 21:10 Room Air 12/27/21 19:34 37.1 88 20 143/81 (101) 95 Capillary Refill : General Appearance: No Apparent Distress, WD/WN, Chronically ill, Thin HEENT: PERRL/EOMI, Normal ENT Inspection, Pharynx Normal Neck: Full Range of Motion, Normal Inspection, Non Tender, Supple, Carotid Bruit Respiratory: Chest Non Tender, Lungs Clear, Normal Breath Sounds, No Accessory Muscle Use, No Respiratory Distress Cardiovascular: Regular Rate, Rhythm, No Edema, No Gallop, No JVD, No Murmur, N ormal Peripheral Pulses Gastrointestinal: Normal Bowel Sounds, No Organomegaly, No Pulsatile Mass, Non Tender, Soft, Other (PEG tube in place) Back: Normal Inspection, No CVA Tenderness, No Vertebral Tenderness Extremity: Normal Capillary Refill, Normal Inspection, Normal Range of Motion, Non Tender, No Calf Tenderness, No Pedal Edema Neurologic/Psychiatric: Alert, Oriented x3, No Motor/Sensory Deficits, armature tester II- XII Norm as Tested, Depressed Affect, Motor Weakness (Generalized) Skin: Normal Color, Warm/Dry Lymphatic: No Adenopathy Results/Procedures Lab Patient resulted labs reviewed. FIM Transfers Therapy Code Descriptions/Definitions Functional [place] Measure: 0=Not Assessed/NA 4=Minimal Assistance 1=Total Assistance 5=Supervision or Setup 2=Maximal Assistance 6=Modified [place] 3=Moderate Assistance 7=Complete IndependenceSCALE: Activities may be completed with or without assistive devices. 3-Jwrpomlvkd-bqzjcpm completes the activity by him/herself with no assistance from a helper. 5-Set-up or Clean-up Assistance-helper sets up or cleans up; patient completes activity. [place] assists only prior to or following the activity. 4-Supervision or Touching Assistance-helper provides verbal cues and/or touching/steadying and/or contact guard assistance as patient completes activity. Assistance may be provided throughout the activity or intermittently. 3-Partial/Moderate Assistance-helper does LESS THAN HALF the effort. [place] lifts, holds or supports trunk or limbs, but provides less than half the effort. 2-Substantial/Maximal Assistance-helper does MORE THAN HALF the effort. [place] l ifts or holds trunk or limbs and provides more than half the effort. 1-Umqklffqt-cdfumj does ALL the effort. Patient does none of the effort to complete the activity. Or, the assistance of 2 or more helpers is required for the patient to complete the activity. If activity was not attempted, code reason: 7-Patient Refused. 9-Not Applicable-not attempted and the patient did not perform the activity before the current illness, exacerbation or injury. 10-Not Attempted due to Environmental Limitations-(lack of equipment, weather restraints, etc.). 88-Not Attempted due to Medical Conditions or Safety Concerns. Roll Left to Right (QC): 6 Sit to Lying (QC): 6 Sit to Stand (QC): 4 Chair/Fvh-qe-Cnyla Xfer(QC): 4 Car Transfer (QC): 4 Gait Training Does the Patient Walk?: Yes Distance: 150'x3 Walk 10 feet (QC): 4 Walk 50 ft with 2 Turns(QC): 4 Walk 150 ft (QC): 4 Walking 10ft/uneven surface-QC: 4 Gait Persons Needed: 1 Gait Assistive Device: FWW Wheelchair Training Does the Pt Use a Wheelchair?: Yes Wheel 50 ft with 2 turns (QC): 4 Wheel 150 ft (QC): 4 Type of Wheelchair: Manual Stair Training #of Steps: 4 1 Step (curb) (QC): 4 4 Steps (QC): 4 12 Steps (QC): 88 Balance Picking up an Object (QC): 4 (CGA without using a immigration consultant) ADL-Treatment Eating (QC): 88 Oral Hygiene (QC): 6 (Per clinical judgment, pt would be able to complete task independently. Pt doesn't have his dentures with him so declines task.) Shower/Bathe Self (QC): 5 (set up to cover port prior to shower.) Upper Body Dressing (QC): 5 (set up, OT assisted with managing IV lines attached to port on chest.) Lower Body Dressing (QC): 5 (set up) On/Off Footwear (QC): 6 (IND don/doff gripper socks.) Toileting Hygiene (QC): 6 (IND with hygiene and clothing management.) Toilet Transfer (QC): 6 Assessment/Plan Assessment and Plan Assess & Plan/Chief Complaint Assessment: Debility Profound weight loss Esophageal cancer with widespread metastasis Dysphagia Chronic pain Hyperlipidemia Hyponatremia placed on fluid restriction Abdominal pain work-up in process 12/21/2021 dx with narcotic bowel and still large amount of stool in colon reviewed CT per Dr Quintero showing no obstruction Plan: Fluid restriction Supportive care Tube feedings PT and OT 12/19/2021: Add fentanyl patch Supportive care 12/20/2021: Continue fentanyl patch Monitor closely 12/21/2021: Consult Dr. Quintero Abdominal x-ray 12/22/2021: Mag citrate Aggressive bowel regimen 12/23/2021: Continue laxatives Monitor closely 12/24/2021: Dr Quintero appreciated 12/25/2021: CT abd pelvis 12/26/2021: Fentanyl patch Discharge home soon in order to pursue cancer treatment which will be palliative at best 12/27/2021: Establish care with oncology as an outpatient No sign of obstruction (1) Debility CALVIN OVERTON DO Dec 27, 2021 10:27
--- NOTE | 2021-12-27 10:54 | Physical Therapy Daily Note ---
PT Daily Note-Current Subjective Patient in bed pre tx, agrees to PT, has unrated abdominal pain. Appearance Patient in bed post tx with nurse call, phone, tray, all needs met. Mental Status Patient Orientation: Person, Place, Situation Attachments: PEG Tube Transfers SCALE: Activities may be completed with or without assistive devices. 6-Vazychhzek-rxkiotn completes the activity by him/herself with no assistance from a helper. 5-Set-up or Clean-up Assistance-helper sets up or cleans up; patient completes activity. [place] assists only prior to or following the activity. 4-Supervision or Touching Assistance-helper provides verbal cues and/or touching/steadying and/or contact guard assistance as patient completes activity. Assistance may be provided throughout the activity or intermittently. 3-Partial/Moderate Assistance-helper does LESS THAN HALF the effort. [place] lifts, holds or supports trunk or limbs, but provides less than half the effort. 2-Substantial/Maximal Assistance-helper does MORE THAN HALF the effort. [place] lifts or holds trunk or limbs and provides more than half the effort. 4-Zfxtibqiu-ydgvsk does ALL the effort. Patient does none of the effort to complete the activity. Or, the assistance of 2 or more helpers is required for the patient to complete the activity. If activity was not attempted, code reason: 7-Patient Refused. 9-Not Applicable-not attempted and the patient did not perform the activity before the current illness, exacerbation or injury. 10-Not Attempted due to Environmental Limitations-(lack of equipment, weather restraints, etc.). 88-Not Attempted due to Medical Conditions or Safety Concerns. Roll Left & Right (QC): 6 Sit to Lying (QC): 6 Lying to Sitting/Side of Bed(Q: 6 Sit to Stand (QC): 4 Chair/Ybx-ja-Rrbfl Xfer(QC): 4 SBA with transfers Weight Bearing Full Weight Bearing Full Weight Bearing Gait Training Distance: 150'x3 Walk 10 feet (QC): 4 Walk 50 ft with 2 Turns(QC): 4 Walk 150 ft (QC): 4 Gait Persons Needed: 1 Gait Assistive Device: FWW SBA, slow but steady ambulation, right foot drop Exercises Standing: Heel/toe raises, Mini squats, Step-ups (x10 each side) Standing Reps: 15 LAQ alternating for 5 min with 2# ankle weights NuStep Minutes: 15 NuStep Workload: 5 Treatments bed mobility and transfers, ambulation, functional strengthening Assessment Current Status: Fair Progress slow improvement in strength and endurance PT Short Term Goals Short Term Goals Time Frame: Dec 25, 2021 Roll Left & Right: 6 Sit to lyin Lying to sitting on side of be: 6 Sit to stand: 4 (SBA) Chair/qbf-lv-jeiry transfer: 4 (SBA) Walk 10 feet: 4 (SBA) Walk 50 feet with two turns: 4 (SBA) Walk 150 feet: 4 (SBA) PT Senior Living Goals Senior Living Goals PT Gifted Teacher Goals Time Frame: Jan 08, 2022 Roll Left & Right (QC): 6 Sit to Lying (QC): 6 Lying-Sitting on Side/Bed(QC): 6 Sit to Stand (QC): 6 Chair/Loo-qp-Rqdgo Xfer(QC): 6 Toilet Transfer (QC): 6 Car Transfer (QC): 6 Does the Patient Walk: Yes Walk 10 feet (QC): 6 Walk 50ft with 2 Turns (QC): 6 Walk 150 ft (QC): 6 Walking 10ft on Uneven Surface: 6 1 Step (curb) (QC): 6 4 Steps (QC): 6 12 Steps (QC): 6 Picking up an Object (QC): 6 Wheel 50 feet with 2 turns (QC: 9 Wheel 150 feet: 9 PT Plan Problem List Problem List: Activity Tolerance, Functional Strength, Safety, Balance, Gait, Transfer, Bed Mobility, ROM Treatment/Plan Treatment Plan: Continue Plan of Care Treatment Plan: Education, Functional Activity Melo, Functional Strength, Group Therapy, Gait, Safety, Therapeutic Exercise, Transfers Treatment Duration: Jan 08, 2022 Frequency: At least 5 of 7 days/Wk (IRF) Estimated Hrs Per Day: 1.5 hours per day Patient and/or Family Agrees t: Yes Safety Risks/Education Patient Education: Gait Training, Transfer Techniques, Correct Positioning, Safety Issues Teaching Recipient: Patient Teaching Methods: Demonstration, Discussion Response to Teaching: Reinforcement Needed Time/GCodes Time In: 1000 Time Out: 1100 Total Billed Treatment Time: 60 Total Billed Treatment 1 visit EX 30' FA 30' GORAN DE ANDA PT Dec 27, 2021 10:54
--- NOTE | 2021-12-27 14:00 | Physical Therapy Daily Note ---
PT Daily Note-Current Subjective Patient in bed pre tx, agrees to PT, voices no complaints of pain. Appearance Patient in restroom post tx, knows to use nurse call when done Mental Status Patient Orientation: Person, Place, Situation Transfers SCALE: Activities may be completed with or without assistive devices. 6-Rnicrkcjxe-slgldwc completes the activity by him/herself with no assistance from a helper. 5-Set-up or Clean-up Assistance-helper sets up or cleans up; patient completes activity. [place] assists only prior to or following the activity. 4-Supervision or Touching Assistance-helper provides verbal cues and/or touching/steadying and/or contact guard assistance as patient completes activity. Assistance may be provided throughout the activity or intermittently. 3-Partial/Moderate Assistance-helper does LESS THAN HALF the effort. [place] lifts, holds or supports trunk or limbs, but provides less than half the effort. 2-Substantial/Maximal Assistance-helper does MORE THAN HALF the effort. [place] lifts or holds trunk or limbs and provides more than half the effort. 6-Wivlhigof-mydqqx does ALL the effort. Patient does none of the effort to complete the activity. Or, the assistance of 2 or more helpers is required for the patient to complete the activity. If activity was not attempted, code reason: 7-Patient Refused. 9-Not Applicable-not attempted and the patient did not perform the activity before the current illness, exacerbation or injury. 10-Not Attempted due to Environmental Limitations-(lack of equipment, weather restraints, etc.). 88-Not Attempted due to Medical Conditions or Safety Concerns. Roll Left & Right (QC): 6 Lying to Sitting/Side of Bed(Q: 6 Sit to Stand (QC): 4 Chair/Pgg-sq-Etfix Xfer(QC): 4 Weight Bearing Full Weight Bearing Full Weight Bearing Gait Training Distance: 150'x4 Walk 10 feet (QC): 4 Walk 50 ft with 2 Turns(QC): 4 Walk 150 ft (QC): 4 Gait Persons Needed: 1 Gait Assistive Device: FWW SBA, slow but steady ambulation, rest breaks between bouts of ambulation Treatments bed mobility and transfers, ambulation Assessment Current Status: Fair Progress improving endurance PT Short Term Goals Short Term Goals Time Frame: Dec 25, 2021 Roll Left & Right: 6 Sit to lyin Lying to sitting on side of be: 6 Sit to stand: 4 (SBA) Chair/exb-gf-gpmmv transfer: 4 (SBA) Walk 10 feet: 4 (SBA) Walk 50 feet with two turns: 4 (SBA) Walk 150 feet: 4 (SBA) PT Counselor Supervisor Goals Counselor Supervisor Goals PT Senior Living Goals Time Frame: Jan 08, 2022 Roll Left & Right (QC): 6 Sit to Lying (QC): 6 Lying-Sitting on Side/Bed(QC): 6 Sit to Stand (QC): 6 Chair/Umk-gd-Smbyd Xfer(QC): 6 Toilet Transfer (QC): 6 Car Transfer (QC): 6 Does the Patient Walk: Yes Walk 10 feet (QC): 6 Walk 50ft with 2 Turns (QC): 6 Walk 150 ft (QC): 6 Walking 10ft on Uneven Surface: 6 1 Step (curb) (QC): 6 4 Steps (QC): 6 12 Steps (QC): 6 Picking up an Object (QC): 6 Wheel 50 feet with 2 turns (QC: 9 Wheel 150 feet: 9 PT Plan Problem List Problem List: Activity Tolerance, Functional Strength, Safety, Balance, Gait, Transfer, Bed Mobility, ROM Treatment/Plan Treatment Plan: Continue Plan of Care Treatment Plan: Education, Functional Activity Melo, Functional Strength, Group Therapy, Gait, Safety, Therapeutic Exercise, Transfers Treatment Duration: Jan 08, 2022 Frequency: At least 5 of 7 days/Wk (IRF) Estimated Hrs Per Day: 1.5 hours per day Patient and/or Family Agrees t: Yes Safety Risks/Education Patient Education: Gait Training, Transfer Techniques, Correct Positioning, Safety Issues Teaching Recipient: Patient Teaching Methods: Demonstration, Discussion Response to Teaching: Reinforcement Needed Time/GCodes Time In: 1330 Time Out: 1400 Total Billed Treatment Time: 30 Total Billed Treatment 1 visit FA 30' GORAN DE ANDA PT Dec 27, 2021 14:00
[2021-12-27 19:34] VITALS: BP 143/81
[2021-12-27] MEDS: ACETAMINOPHEN ER 650 MG (TYLENOL ARTHRITIS) PO PRN (22:23)
[2021-12-28] MEDS: CATHETER FLUSH 10 ML SYR IVP SCH ×3 (05:40→21:14)
[2021-12-28] MEDS: KCL 20 MEQ TAB (K-DUR) PO SCH (05:40)
[2021-12-28] MEDS: ACETAMINOPHEN ER 650 MG (TYLENOL ARTHRITIS) PO PRN ×3 (06:25→21:09)
--- NOTE | 2021-12-28 06:33 | PM&R Progress Note ---
Subjective HPI/CC On Admission Date Seen by Provider: Dec 28, 2021 Time Seen by Provider: 12:00 Subjective/Events-last exam 12/28/2021: Doing well except pain abdomen Ascites likely the cause of the pain Patient had a very aggressive cancer process and unsure if we can improve things Has appt with Dr Justice for palliative care management 12/27/2021: Pt is doing really well No new concerns Abdominal pain is from the cancer that has progressed and has nothing to do with an obstruction 12/26/2021: CT reveals no obstruction Tube feedings restarted Patient will need to discharge soon and pursue cancer treatment 12/25/2021: Still having issues with constipation Dr Quintero will evaluate No pain otherwise 12/24/2021: Still constipated Loose stools going around the constipation area in the colon Monitor closely 12/23/2021: Multiple BM's noted after mag citrate at 1000pm No falls Pain controlled Fentanyl patch maintained 12/22/2021: Patient doing the same Mag citrate ordered by Dr. Quintero Appreciate Dr. Quintero's assistance Supportive care will continue 12/21/2021: Patient having abdominal pain Constipation is likely an issue but could be ileus for esophageal cancer with obstruction We will check x-ray and consult Dr. Quintero 12/20/2021: Patient doing much better Fentanyl patch has made a huge difference No pain is reported right now Tolerating PEG tube feedings Minimal emesis 12/19/2021: Patient doing better except for the pain Starting fentanyl patch because extended release pills can't go through PEG tube Emesis at times which is an issue that occurred at [facility] Walking around pretty well Supportive care will continue Review of Systems General: Fatigue, Malaise Gastrointestinal: Abdominal Pain Objective Exam Vital Signs Vital Signs Date Time Temp Pulse Resp B/P (MAP) Pulse Ox O2 Delivery O2 Flow Rate FiO2 12/28/21 10:03 Room Air 12/28/21 07:28 36.5 75 16 122/69 (86) 98 Capillary Refill : General Appearance: No Apparent Distress, WD/WN, Chronically ill, Thin HEENT: PERRL/EOMI, Normal ENT Inspection, Pharynx Normal Neck: Full Range of Motion, Normal Inspection, Non Tender, Supple, Carotid Bruit Respiratory: Chest Non Tender, Lungs Clear, Normal Breath Sounds, No Accessory Muscle Use, No Respiratory Distress Cardiovascular: Regular Rate, Rhythm, No Edema, No Gallop, No JVD, No Murmur, Normal Peripheral Pulses Gastrointestinal: Normal Bowel Sounds, No Organomegaly, No Pulsatile Mass, Non Tender, Soft, Other (PEG tube in place) Back: Normal Inspection, No CVA Tenderness, No Vertebral Tenderness Extremity: Normal Capillary Refill, Normal Inspection, Normal Range of Motion, Non Tender, No Calf Tenderness, No Pedal Edema Neurologic/Psychiatric: Alert, Oriented x3, No Motor/Sensory Deficits, ppap coordinator II- XII Norm as Tested, Depressed Affect, Motor Weakness (Generalized) Skin: Normal Color, Warm/Dry Lymphatic: No Adenopathy Results/Procedures Lab Patient resulted labs reviewed. FIM Transfers Therapy Code Descriptions/Definitions Functional [place] Measure: 0=Not Assessed/NA 4=Minimal Assistance 1=Total Assistance 5=Supervision or Setup 2=Maximal Assistance 6=Modified [place] 3=Moderate Assistance 7=Complete IndependenceSCALE: Activities may be completed with or without assistive devices. 2-Ngxywwlilk-yhatise completes the activity by him/herself with no assistance from a helper. 5-Set-up or Clean-up Assistance-helper sets up or cleans up; patient completes activity. [place] assists only prior to or following the activity. 4-Supervision or Touching Assistance-helper provides verbal cues and/or touching/steadying and/or contact guard assistance as patient completes activity. Assistance may be provided throughout the activity or intermittently. 3-Partial/Moderate Assistance-helper does LESS THAN HALF the effort. [place] lifts, holds or supports trunk or limbs, but provides less than half the effort. 2-Substantial/Maximal Assistance-helper does MORE THAN HALF the effort. [place] lifts or holds trunk or limbs and provides more than half the effort. 1-Ihsjdnosa-rguacc does ALL the effort. Patient does none of the effort to complete the activity. Or, the assistance of 2 or more helpers is required for the patient to complete the activity. If activity was not attempted, code reason: 7-Patient Refused. 9-Not Applicable-not attempted and the patient did not perform the activity before the current illness, exacerbation or injury. 10-Not Attempted due to Environmental Limitations-(lack of equipment, weather restraints, etc.). 88-Not Attempted due to Medical Conditions or Safety Concerns. Roll Left to Right (QC): 6 Sit to Lying (QC): 6 Sit to Stand (QC): 4 Chair/Pab-fu-Dnxbj Xfer(QC): 4 Car Transfer (QC): 4 Gait Training Does the Patient Walk?: Yes Distance: 150'x4 Walk 10 feet (QC): 4 Walk 50 ft with 2 Turns(QC): 4 Walk 150 ft (QC): 4 Walking 10ft/uneven surface-QC: 4 Gait Persons Needed: 1 Gait Assistive Device: FWW Wheelchair Training Does the Pt Use a Wheelchair?: Yes Wheel 50 ft with 2 turns (QC): 4 Wheel 150 ft (QC): 4 Type of Wheelchair: Manual Stair Training #of Steps: 4 1 Step (curb) (QC): 4 4 Steps (QC): 4 12 Steps (QC): 88 Balance Picking up an Object (QC): 4 (CGA without using a barrel painter) ADL-Treatment Eating (QC): 88 Oral Hygiene (QC): 6 (Per clinical judgment, pt would be able to complete task independently. Pt doesn't have his dentures with him so declines task.) Shower/Bathe Self (QC): 5 (set up to cover port prior to shower.) Upper Body Dressing (QC): 5 (set up, OT assisted with managing IV lines attached to port on chest.) Lower Body Dressing (QC): 5 (set up) On/Off Footwear (QC): 6 (IND don/doff gripper socks.) Toileting Hygiene (QC): 6 (IND with hygiene and clothing management.) Toilet Transfer (QC): 6 Assessment/Plan Assessment and Plan Assess & Plan/Chief Complaint Assessment: Debility Profound weight loss Esophageal cancer with widespread metastasis Dysphagia Chronic pain Hyperlipidemia Hyponatremia placed on fluid restriction Abdominal pain work-up in process 12/21/2021 dx with narcotic bowel and still large amount of stool in colon reviewed CT per Dr Quintero showing no obstruction Plan: Fluid restriction Supportive care Tube feedings PT and OT 12/19/2021: Add fentanyl patch Supportive care 12/20/2021: Continue fentanyl patch Monitor closely 12/21/2021: Consult Dr. Quintero Abdominal x-ray 12/22/2021: Mag citrate Aggressive bowel regimen 12/23/2021: Continue laxatives Monitor closely 12/24/2021: Dr Quintero appreciated 12/25/2021: CT abd pelvis 12/26/2021: Fentanyl patch Discharge home soon in order to pursue cancer treatment which will be palliative at best 12/27/2021: Establish care with oncology as an outpatient No sign of obstruction 12/28/2021: Monitor pain TF to continue (1) Debility CALVIN OVERTON DO Dec 28, 2021 06:33
[2021-12-28 07:28] VITALS: BP 122/69
[2021-12-28] MEDS: DOCUSATE SODIUM 10 MG/ML 10 ML UDC (COLACE) PO SCH ×2 (08:56→21:09)
[2021-12-28] MEDS: LACTULOSE SYRUP 10GM/15ML (ENULOSE) 30ML UDC PEG SCH (08:56)
[2021-12-28] MEDS: SODIUM CHLORIDE 1 GM TABLET PO SCH ×4 (08:57→21:09)
[2021-12-28] MEDS: polyethylene glycoL POWDER 17 GM (MIRALAX) PACK PO SCH (08:59)
[2021-12-28] MEDS: [UNRECOGNIZED DRUG - REMARK] TP SCH (09:06)
[2021-12-28] MEDS: fentaNYL PATCH 25 MCG (DURAGESIC) TD SCH (09:06)
[2021-12-28] MEDS: PANTOPRAZOLE 2 MG/ML LIQUID 200 ML (PROTONIX) PEG SCH ×6 (09:07→21:22)
--- NOTE | 2021-12-28 11:09 | Physical Therapy Daily Note ---
PT Daily Note-Current Subjective Pt in bed upon arrival and agrees to PT. No pain reported. Mental Status Patient Orientation: Person, Place, Time, Situation Attachments: PEG Tube Transfers SCALE: Activities may be completed with or without assistive devices. 4-Vpdnlyfflq-ezbhzsz completes the activity by him/herself with no assistance from a helper. 5-Set-up or Clean-up Assistance-helper sets up or cleans up; patient completes activity. [place] assists only prior to or following the activity. 4-Supervision or Touching Assistance-helper provides verbal cues and/or touching/steadying and/or contact guard assistance as patient completes activity. Assistance may be provided throughout the activity or intermittently. 3-Partial/Moderate Assistance-helper does LESS THAN HALF the effort. [place] lifts, holds or supports trunk or limbs, but provides less than half the effort. 2-Substantial/Maximal Assistance-helper does MORE THAN HALF the effort. [place] lifts or holds trunk or limbs and provides more than half the effort. 3-Adfutxeqk-nmyvyf does ALL the effort. Patient does none of the effort to complete the activity. Or, the assistance of 2 or more helpers is required for the patient to complete the activity. If activity was not attempted, code reason: 7-Patient Refused. 9-Not Applicable-not attempted and the patient did not perform the activity before the current illness, exacerbation or injury. 10-Not Attempted due to Environmental Limitations-(lack of equipment, weather restraints, etc.). 88-Not Attempted due to Medical Conditions or Safety Concerns. Roll Left & Right (QC): 5 Sit to Lying (QC): 5 Lying to Sitting/Side of Bed(Q: 4 Sit to Stand (QC): 4 Weight Bearing Full Weight Bearing Full Weight Bearing Gait Training Does the Patient Walk?: Yes Distance: 150' x2 Walk 10 feet (QC): 5 Walk 50 ft with 2 Turns(QC): 5 Walk 150 ft (QC): 4 Gait Persons Needed: 1 Gait Assistive Device: FWW Exercises NuStep Minutes: 10 NuStep Workload: 5 Treatments Pt TFs back to bed post treatment w/ all needs met and call light nearby. Assessment Current Status: Good Progress Pt required skilled verbal and tactile cues in order to perform Tfs. PT Short Term Goals Short Term Goals Time Frame: Dec 25, 2021 Roll Left & Right: 6 Sit to lyin Lying to sitting on side of be: 6 Sit to stand: 4 (SBA) Chair/dld-bx-arins transfer: 4 (SBA) Walk 10 feet: 4 (SBA) Walk 50 feet with two turns: 4 (SBA) Walk 150 feet: 4 (SBA) PT Longterm Goals Door Glass Installer Goals PT Door Glass Installer Goals Time Frame: Jan 08, 2022 Roll Left & Right (QC): 6 Sit to Lying (QC): 6 Lying-Sitting on Side/Bed(QC): 6 Sit to Stand (QC): 6 Chair/Wrn-qz-Ecaki Xfer(QC): 6 Toilet Transfer (QC): 6 Car Transfer (QC): 6 Does the Patient Walk: Yes Walk 10 feet (QC): 6 Walk 50ft with 2 Turns (QC): 6 Walk 150 ft (QC): 6 Walking 10ft on Uneven Surface: 6 1 Step (curb) (QC): 6 4 Steps (QC): 6 12 Steps (QC): 6 Picking up an Object (QC): 6 Wheel 50 feet with 2 turns (QC: 9 Wheel 150 feet: 9 PT Plan Problem List Problem List: Activity Tolerance, Safety Treatment/Plan Treatment Plan: Continue Plan of Care Treatment Plan: Education, Functional Activity Melo, Functional Strength, Group Therapy, Gait, Safety, Therapeutic Exercise, Transfers Treatment Duration: Jan 08, 2022 Frequency: At least 5 of 7 days/Wk (IRF) Estimated Hrs Per Day: 1.5 hours per day Patient and/or Family Agrees t: Yes Safety Risks/Education Patient Education: Transfer Techniques, Correct Positioning Teaching Recipient: Patient Teaching Methods: Discussion Response to Teaching: Return Demonstration Time/GCodes Time In: 919 Time Out: 944 Total Billed Treatment Time: 25 Total Billed Treatment 1, Ex x 2 ELODIA PERDOMO PTA Dec 28, 2021 11:08
[2021-12-28 20:00] VITALS: BP 125/74
[2021-12-29] MEDS: ACETAMINOPHEN ER 650 MG (TYLENOL ARTHRITIS) PO PRN ×4 (03:41→23:50)
[2021-12-29] MEDS: KCL 20 MEQ TAB (K-DUR) PO SCH (06:02)
[2021-12-29] MEDS: CATHETER FLUSH 10 ML SYR IVP SCH ×3 (06:11→20:06)
--- NOTE | 2021-12-29 06:55 | PM&R Progress Note ---
Subjective HPI/CC On Admission Date Seen by Provider: Dec 29, 2021 Time Seen by Provider: 11:00 Subjective/Events-last exam 12/29/2021: Patient doing a little better Less edema with scrotum and lower extremities Supportive care will continue Monitor closely 12/28/2021: Doing well except pain abdomen Ascites likely the cause of the pain Patient had a very aggressive cancer process and unsure if we can improve things Has appt with Dr Justice for palliative care management 12/27/2021: Pt is doing really well No new concerns Abdominal pain is from the cancer that has progressed and has nothing to do with an obstruction 12/26/2021: CT reveals no obstruction Tube feedings restarted Patient will need to discharge soon and pursue cancer treatment 12/25/2021: Still having issues with constipation Dr Quintero will evaluate No pain otherwise 12/24/2021: Still constipated Loose stools going around the constipation area in the colon Monitor closely 12/23/2021: Multiple BM's noted after mag citrate at 1000pm No falls Pain controlled Fentanyl patch maintained 12/22/2021: Patient doing the same Mag citrate ordered by Dr. Quintero Appreciate Dr. Quintero's assistance Supportive care will continue 12/21/2021: Patient having abdominal pain Constipation is likely an issue but could be ileus for esophageal cancer with obstruction We will check x-ray and consult Dr. Quintero 12/20/2021: Patient doing much better Fentanyl patch has made a huge difference No pain is reported right now Tolerating PEG tube feedings Minimal emesis 12/19/2021: Patient doing better except for the pain Starting fentanyl patch because extended release pills can't go through PEG tube Emesis at times which is an issue that occurred at [facility] Walking around pretty well Supportive care will continue Review of Systems General: Fatigue, Malaise Objective Exam Vital Signs Vital Signs Date Time Temp Pulse Resp B/P (MAP) Pulse Ox O2 Delivery O2 Flow Rate FiO2 12/29/21 09:27 Room Air 12/29/21 07:17 36.8 74 18 125/75 (92) 96 Capillary Refill : General Appearance: No Apparent Distress, WD/WN, Chronically ill, Thin HEENT: PERRL/EOMI, Normal ENT Inspection, Pharynx Normal Neck: Full Range of Motion, Normal Inspection, Non Tender, Supple, Carotid Bruit Respiratory: Chest Non Tender, Lungs Clear, Normal Breath Sounds, No Accessory Muscle Use, No Respiratory Distress Cardiovascular: Regular Rate, Rhythm, No Edema, No Gallop, No JVD, No Murmur, Normal Peripheral Pulses Gastrointestinal: Normal Bowel Sounds, No Organomegaly, No Pulsatile Mass, Non Tender, Soft, Other (PEG tube in place) Back: Normal Inspection, No CVA Tenderness, No Vertebral Tenderness Extremity: Normal Capillary Refill, Normal Inspection, Normal Range of Motion, Non Tender, No Calf Tenderness, No Pedal Edema Neurologic/Psychiatric: Alert, Oriented x3, No Motor/Sensory Deficits, back up worker II- XII Norm as Tested, Depressed Affect, Motor Weakness (Generalized) Skin: Normal Color, Warm/Dry Lymphatic: No Adenopathy Results/Procedures Lab Patient resulted labs reviewed. FIM Transfers Therapy Code Descriptions/Definitions Functional [place] Measure: 0=Not Assessed/NA 4=Minimal Assistance 1=Total Assistance 5=Supervision or Setup 2=Maximal Assistance 6=Modified [place] 3=Moderate Assistance 7=Complete IndependenceSCALE: Activities may be completed with or without assistive devices. 1-Daborujibr-yytrmge completes the activity by him/herself with no assistance from a helper. 5-Set-up or Clean-up Assistance-helper sets up or cleans up; patient completes activity. [place] assists only prior to or following the activity. 4-Supervision or Touching Assistance-helper provides verbal cues and/or touching/steadying and/or contact guard assistance as patient completes activity. Assistance may be provided throughout the activity or intermittently. 3-Partial/Moderate Assistance-helper does LESS THAN HALF the effort. [place] lifts, holds or supports trunk or limbs, but provides less than half the effort. 2-Substantial/Maximal Assistance-helper does MORE THAN HALF the effort. [place] lifts or holds trunk or limbs and provides more than half the effort. 6-Mjhulmlcr-xfupux does ALL the effort. Patient does none of the effort to complete the activity. Or, the assistance of 2 or more helpers is required for the patient to complete the activity. If activity was not attempted, code reason: 7-Patient Refused. 9-Not Applicable-not attempted and the patient did not perform the activity before the current illness, exacerbation or injury. 10-Not Attempted due to Environmental Limitations-(lack of equipment, weather restraints, etc.). 88-Not Attempted due to Medical Conditions or Safety Concerns. Roll Left to Right (QC): 5 Sit to Lying (QC): 5 Sit to Stand (QC): 4 Chair/Etd-ua-Eakhz Xfer(QC): 4 Car Transfer (QC): 4 Gait Training Does the Patient Walk?: Yes Distance: 150' x2 Walk 10 feet (QC): 5 Walk 50 ft with 2 Turns(QC): 5 Walk 150 ft (QC): 4 Walking 10ft/uneven surface-QC: 4 Gait Persons Needed: 1 Gait Assistive Device: FWW Wheelchair Training Does the Pt Use a Wheelchair?: Yes Wheel 50 ft with 2 turns (QC): 4 Wheel 150 ft (QC): 4 Type of Wheelchair: Manual Stair Training #of Steps: 4 1 Step (curb) (QC): 4 4 Steps (QC): 4 12 Steps (QC): 88 Balance Picking up an Object (QC): 4 (CGA without using a four slide machine operator) ADL-Treatment Eating (QC): 88 Oral Hygiene (QC): 6 (Per clinical judgment, pt would be able to complete task independently. Pt doesn't have his dentures with him so declines task.) Shower/Bathe Self (QC): 5 (set up to cover port prior to shower.) Upper Body Dressing (QC): 5 (set up, OT assisted with managing IV lines attached to port on chest.) Lower Body Dressing (QC): 5 (set up) On/Off Footwear (QC): 6 (IND don/doff gripper socks.) Toileting Hygiene (QC): 6 (IND with hygiene and clothing management.) Toilet Transfer (QC): 6 Assessment/Plan Assessment and Plan Assess & Plan/Chief Complaint Assessment: Debility Profound weight loss Esophageal cancer with widespread metastasis Dysphagia Chronic pain Hyperlipidemia Hyponatremia placed on fluid restriction Abdominal pain work-up in process 12/21/2021 dx with narcotic bowel and still large amount of stool in colon reviewed CT per Dr Quintero showing no obstruction Plan: Fluid restriction Supportive care Tube feedings PT and OT 12/19/2021: Add fentanyl patch Supportive care 12/20/2021: Continue fentanyl patch Monitor closely 12/21/2021: Consult Dr. Quintero Abdominal x-ray 12/22/2021: Mag citrate Aggressive bowel regimen 12/23/2021: Continue laxatives Monitor closely 12/24/2021: Dr Quintero appreciated 12/25/2021: CT abd pelvis 12/26/2021: Fentanyl patch Discharge home soon in order to pursue cancer treatment which will be palliative at best 12/27/2021: Establish care with oncology as an outpatient No sign of obstruction 12/28/2021: Monitor pain TF to continue 12/29/2021: Hemoglobin stable will initiate Lovenox Supportive care (1) Debility CALVIN OVERTON DO Dec 29, 2021 06:55
[2021-12-29 07:17] VITALS: BP 125/75
[2021-12-29] MEDS: LACTULOSE SYRUP 10GM/15ML (ENULOSE) 30ML UDC PEG SCH (08:32)
[2021-12-29] MEDS: DOCUSATE SODIUM 10 MG/ML 10 ML UDC (COLACE) PO SCH ×2 (08:34→20:06)
[2021-12-29] MEDS: polyethylene glycoL POWDER 17 GM (MIRALAX) PACK PO SCH (08:35)
[2021-12-29] MEDS: SODIUM CHLORIDE 1 GM TABLET PO SCH ×4 (08:35→20:09)
[2021-12-29] MEDS: PANTOPRAZOLE 2 MG/ML LIQUID 200 ML (PROTONIX) PEG SCH ×6 (08:37→20:06)
[2021-12-29 20:07] VITALS: BP 153/72
[2021-12-29] MEDS: ENOXAPARIN 40 MG/0.4 ML (LOVENOX) SYR SC SCH (21:05)
[2021-12-30] MEDS: CATHETER FLUSH 10 ML SYR IVP SCH ×3 (06:07→20:17)
[2021-12-30] MEDS: ACETAMINOPHEN ER 650 MG (TYLENOL ARTHRITIS) PO PRN ×3 (06:07→22:27)
[2021-12-30 06:09] LABS: BASOPHILS % (AUTO) 0 % (0-10); EOSINOPHILS # (AUTO) 0.1 10^3/uL (0.0-0.3); EOSINOPHILS % (AUTO) 1 % (0-10); HEMATOCRIT 29 % (40-54); HEMOGLOBIN 9.6 g/dL (13.3-17.7); LYMPHOCYTES % (AUTO) 13 % (12-44); MEAN CORPUSCULAR HEMOGLOBIN 28 pg (25-34); MEAN CORPUSCULAR HGB CONC 33 g/dL (32-36); MEAN CORPUSCULAR VOLUME 85 fL (80-99); MEAN PLATELET VOLUME 8.9 fL (9.0-12.2); MONOCYTES # (AUTO) 0.5 10^3/uL (0.0-1.0); MONOCYTES % (AUTO) 7 % (0-12); NEUTROPHILS # (AUTO) 5.8 10^3/uL (1.8-7.8); NEUTROPHILS % (AUTO) 79 % (42-75); PLATELET COUNT 352 10^3/uL (130-400); WHITE BLOOD COUNT 7.4 10^3/uL (4.3-11.0)
[2021-12-30 06:24] LABS: ALBUMIN 2.3 GM/DL (3.2-4.5); POTASSIUM 3.9 MMOL/L (3.6-5.0)
[2021-12-30 06:25] LABS: CALCIUM 7.7 MG/DL (8.5-10.1)
[2021-12-30] MEDS: KCL 20 MEQ TAB (K-DUR) PO SCH (06:27)
[2021-12-30 06:28] LABS: BILIRUBIN,TOTAL 0.3 MG/DL (0.1-1.0)
[2021-12-30 06:30] LABS: CREATININE SERUM 0.62 MG/DL (0.60-1.30)
--- NOTE | 2021-12-30 07:16 | PM&R Progress Note ---
Subjective HPI/CC On Admission Date Seen by Provider: Dec 30, 2021 Time Seen by Provider: 12:00 Subjective/Events-last exam 12/30/2021: No major changes Pain controlled today but had a lot of pain last night Cancer is very aggressive and progressing quickly 12/29/2021: Patient doing a little better Less edema with scrotum and lower extremities Supportive care will continue Monitor closely 12/28/2021: Doing well except pain abdomen Ascites likely the cause of the pain Patient had a very aggressive cancer process and unsure if we can improve things Has appt with Dr Justice for palliative care management 12/27/2021: Pt is doing really well No new concerns Abdominal pain is from the cancer that has progressed and has nothing to do with an obstruction 12/26/2021: CT reveals no obstruction Tube feedings restarted Patient will need to discharge soon and pursue cancer treatment 12/25/2021: Still having issues with constipation Dr Quintero will evaluate No pain otherwise 12/24/2021: Still constipated Loose stools going around the constipation area in the colon Monitor closely 12/23/2021: Multiple BM's noted after mag citrate at 1000pm No falls Pain controlled Fentanyl patch maintained 12/22/2021: Patient doing the same Mag citrate ordered by Dr. Quintero Appreciate Dr. Quintero's assistance Supportive care will continue 12/21/2021: Patient having abdominal pain Constipation is likely an issue but could be ileus for esophageal cancer with obstruction We will check x-ray and consult Dr. Quintero 12/20/2021: Patient doing much better Fentanyl patch has made a huge difference No pain is reported right now Tolerating PEG tube feedings Minimal emesis 12/19/2021: Patient doing better except for the pain Starting fentanyl patch because extended release pills can't go through PEG tube Emesis at times which is an issue that occurred at [facility] Walking around pretty well Supportive care will continue Review of Systems General: Fatigue, Malaise Objective Exam Vital Signs Vital Signs Date Time Temp Pulse Resp B/P (MAP) Pulse Ox O2 Delivery O2 Flow Rate FiO2 12/30/21 09:15 Room Air 12/30/21 07:17 36.8 81 18 145/65 (91) 95 Capillary Refill : General Appearance: No Apparent Distress, WD/WN, Chronically ill, Thin HEENT: PERRL/EOMI, Normal ENT Inspection, Pharynx Normal Neck: Full Range of Motion, Normal Inspection, Non Tender, Supple, Carotid Bruit Respiratory: Chest Non Tender, Lungs Clear, Normal Breath Sounds, No Accessory Muscle Use, No Respiratory Distress Cardiovascular: Regular Rate, Rhythm, No Edema, No Gallop, No JVD, No Murmur, Normal Peripheral Pulses Gastrointestinal: Normal Bowel Sounds, No Organomegaly, No Pulsatile Mass, Non Tender, Soft, Other (PEG tube in place) Back: Normal Inspection, No CVA Tenderness, No Vertebral Tenderness Extremity: Normal Capillary Refill, Normal Inspection, Normal Range of Motion, Non Tender, No Calf Tenderness, No Pedal Edema Neurologic/Psychiatric: Alert, Oriented x3, No Motor/Sensory Deficits, color technician II- XII Norm as Tested, Depressed Affect, Motor Weakness (Generalized) Skin: Normal Color, Warm/Dry Lymphatic: No Adenopathy Results/Procedures Lab Laboratory Tests 12/30/21 05:55 Patient resulted labs reviewed. FIM Transfers Therapy Code Descriptions/Definitions Functional [place] Measure: 0=Not Assessed/NA 4=Minimal Assistance 1=Total Assistance 5=Supervision or Setup 2=Maximal Assistance 6=Modified [place] 3=Moderate Assistance 7=Complete IndependenceSCALE: Activities may be completed with or without assistive devices. 6-Gvjmmelmxm-hdhfmxf completes the activity by him/herself with no assistance from a helper. 5-Set-up or Clean-up Assistance-helper sets up or cleans up; patient completes activity. [place] assists only prior to or following the activity. 4-Supervision or Touching Assistance-helper provides verbal cues and/or touching/steadying and/or contact guard assistance as patient completes a ctivity. Assistance may be provided throughout the activity or intermittently. 3-Partial/Moderate Assistance-helper does LESS THAN HALF the effort. [place] lifts, holds or supports trunk or limbs, but provides less than half the effort. 2-Substantial/Maximal Assistance-helper does MORE THAN HALF the effort. [place] lifts or holds trunk or limbs and provides more than half the effort. 0-Glniynnlj-qbhuox does ALL the effort. Patient does none of the effort to complete the activity. Or, the assistance of 2 or more helpers is required for the patient to complete the activity. If activity was not attempted, code reason: 7-Patient Refused. 9-Not Applicable-not attempted and the patient did not perform the activity before the current illness, exacerbation or injury. 10-Not Attempted due to Environmental Limitations-(lack of equipment, weather restraints, etc.). 88-Not Attempted due to Medical Conditions or Safety Concerns. Roll Left to Right (QC): 5 Sit to Lying (QC): 5 Sit to Stand (QC): 4 Chair/Des-zy-Sbdmv Xfer(QC): 4 Car Transfer (QC): 4 Gait Training Does the Patient Walk?: Yes Distance: 150' x2 Walk 10 feet (QC): 5 Walk 50 ft with 2 Turns(QC): 5 Walk 150 ft (QC): 4 Walking 10ft/uneven surface-QC: 4 Gait Persons Needed: 1 Gait Assistive Device: FWW Wheelchair Training Does the Pt Use a Wheelchair?: Yes Wheel 50 ft with 2 turns (QC): 4 Wheel 150 ft (QC): 4 Type of Wheelchair: Manual Stair Training #of Steps: 4 1 Step (curb) (QC): 4 4 Steps (QC): 4 12 Steps (QC): 88 Balance Picking up an Object (QC): 4 (CGA without using a warehouse associate driver) ADL-Treatment Eating (QC): 88 Oral Hygiene (QC): 6 (Per clinical judgment, pt would be able to complete task independently. Pt doesn't have his dentures with him so declines task.) Shower/Bathe Self (QC): 5 (set up to cover port prior to shower.) Upper Body Dressing (QC): 5 (set up, OT assisted with managing IV lines attached to port on chest.) Lower Body Dressing (QC): 5 (set up) On/Off Footwear (QC): 6 (IND don/doff gripper socks.) Toileting Hygiene (QC): 6 (IND with hygiene and clothing management.) Toilet Transfer (QC): 6 Assessment/Plan Assessment and Plan Assess & Plan/Chief Complaint Assessment: Debility Profound weight loss Esophageal cancer with widespread metastasis Dysphagia Chronic pain Hyperlipidemia Hyponatremia placed on fluid restriction Abdominal pain work-up in process 12/21/2021 dx with narcotic bowel and still large amount of stool in colon reviewed CT per Dr Quintero showing no obstruction Plan: Fluid restriction Supportive care Tube feedings PT and OT 12/19/2021: Add fentanyl patch Supportive care 12/20/2021: Continue fentanyl patch Monitor closely 12/21/2021: Consult Dr. Quintero Abdominal x-ray 12/22/2021: Mag citrate Aggressive bowel regimen 12/23/2021: Continue laxatives Monitor closely 12/24/2021: Dr Quintero appreciated 12/25/2021: CT abd pelvis 12/26/2021: Fentanyl patch Discharge home soon in order to pursue cancer treatment which will be palliative at best 12/27/2021: Establish care with oncology as an outpatient No sign of obstruction 12/28/2021: Monitor pain TF to continue 12/29/2021: Hemoglobin stable will initiate Lovenox Supportive care 12/30/2021: DC soon Needs palliative care cancer treatment (1) Debility CALVIN OVERTON DO Dec 30, 2021 07:16
[2021-12-30 07:17] VITALS: BP 145/65
--- NOTE | 2021-12-30 08:26 | Occupational Ther Daily Note ---
OT Current Status-Daily Note Subjective Pt denies pain, however reports poor sleep. Appearance Pt returned to supine per request, all needs within reach at OT departure. Mental Status/Objective Patient Orientation: Person, Place, Situation Attachments: IV, PEG Tube ADL-Treatment Therapy Code Descriptions/Definitions Functional [place] Measure: 0=Not Assessed/NA 4=Minimal Assistance 1=Total Assistance 5=Supervision or Setup 2=Maximal Assistance 6=Modified [place] 3=Moderate Assistance 7=Complete IndependenceSCALE: Activities may be completed with or without assistive devices. 7-Lgufasngoy-jxjowas completes the activity by him/herself with no assistance from a helper. 5-Set-up or Clean-up Assistance-helper sets up or cleans up; patient completes activity. [place] assists only prior to or following the activity. 4-Supervision or Touching Assistance-helper provides verbal cues and/or touching/steadying and/or contact guard assistance as patient completes activity. Assistance may be provided throughout the activity or intermittently. 3-Partial/Moderate Assistance-helper does LESS THAN HALF the effort. [place] lifts, holds or supports trunk or limbs, but provides less than half the effort. 2-Substantial/Maximal Assistance-helper does MORE THAN HALF the effort. [place] lifts or holds trunk or limbs and provides more than half the effort. 4-Hgqnltshx-joqhtq does ALL the effort. Patient does none of the effort to complete the activity. Or, the assistance of 2 or more helpers is required for the patient to complete the activity. If activity was not attempted, code reason: 7-Patient Refused. 9-Not Applicable-not attempted and the patient did not perform the activity before the current illness, exacerbation or injury. 10-Not Attempted due to Environmental Limitations-(lack of equipment, weather restraints, etc.). 88-Not Attempted due to Medical Conditions or Safety Concerns. Toileting Hygiene (QC): 4 Toilet Transfer (QC): 6 Supine<>sit: Supervision. Cues for hand placement for ~25% of transfers. Pt refuses shower and dressing activities this date. He reports that he is scheduled to shower tomorrow and that he does not want to wear clothing. Education/encouragement to perform activities in order to work towards returning to normal morning routine. Pt still refuses. He ambulated to/from bathroom with supervision and use of walker. Independent with alen care. No clothing management performed as pt wearing hospital gown only. He stood at sink to wash face with supervision. Other Treatment Pt participated in sitting/standing exercises with 3# dowel kristopher. Fatigues much quicker with standing activities, thus needing longer sitting rest breaks in between movements. 1x12 all planes. Min-mod verbal and visual cues for correct technique and slow/controlled movements. Pt able to perform all joints to full range. Education OT Patient Education: Correct positioning, Energy conservation, Exercise program, Modified ADL techniques, Progress toward Goal/Update tx plan, Purpose of tx/functional activities, Safety issues, Transfer techniques Teaching Recipient: Patient Teaching Methods: Demonstration, Discussion Response to Teaching: Verbalize Understanding, Return Demonstration, Reinforcement Needed OT Short Term Goals Short Term Goals Time Frame: Dec 25, 2021 Eatin Oral hygiene: 4 Toileting hygiene: 5 Shower/bathe self: 3 Upper body dressin Lower body dressin Putting on/taking off footwear: 4 OT Fdc Goals Fdc Goals Time Frame: Dec 31, 2021 Eating (QC): 88 Oral Hygiene (QC): 5 Toileting Hygiene (QC): 6 Shower/Bathe Self (QC): 5 Upper Body Dressing (QC): 6 Lower Body Dressing (QC): 6 On/Off Footwear (QC): 6 1=Demonstrate adherence to instructed precautions during ADL tasks. 2=Patient will verbalize/demonstrate understanding of assistive devices/modifications for ADL. 3=Patient will improve strength/tolerance for activity to enable patient to perform ADL's. OT Education/Plan Problem List/Assessment Assessment: Decreased Activ Tolerance, Decreased Safety Aware, Decreased UE Strength, Impaired Funct Balance, Impaired I ADL's, Impaired Self-Care Skills Discharge Recommendations Plan/Recommendations: Continue POC Treatment Plan/Plan of Care Treatment,Training & Education: Yes Patient would benefit from OT for education, treatment and training to promote independence in ADL's, mobility, safety and/or upper extremity function for ADL's. Plan of Care: ADL Retraining, Concurrent Therapy, Functional Mobility, Group Exercise/Act as Ind, UE Funct Exercise/Act Treatment Duration: Dec 31, 2021 Frequency: At least 5 of 7 days/Wk (IRF) Estimated Hrs Per Day: 1.5 hours per day (75-90 min/day ) Agreement: Yes Rehab Potential: Guarded Time/GCodes Start Time: :20 Stop Time: 08:20 Total Time Billed (hr/min): 60 Billed Treatment Time 1 visit ADL (20 min) EX x3 (40 min) Elina Campo OT Dec 30, 2021 08:26
[2021-12-30] MEDS: LACTULOSE SYRUP 10GM/15ML (ENULOSE) 30ML UDC PEG SCH (08:33)
[2021-12-30] MEDS: DOCUSATE SODIUM 10 MG/ML 10 ML UDC (COLACE) PO SCH ×2 (08:33→20:16)
[2021-12-30] MEDS: SODIUM CHLORIDE 1 GM TABLET PO SCH ×4 (08:33→20:16)
[2021-12-30] MEDS: polyethylene glycoL POWDER 17 GM (MIRALAX) PACK PO SCH (08:33)
[2021-12-30] MEDS: PANTOPRAZOLE 2 MG/ML LIQUID 200 ML (PROTONIX) PEG SCH ×6 (08:33→20:17)
--- NOTE | 2021-12-30 10:05 | Physical Therapy Daily Note ---
PT Daily Note-Current Subjective Pt. in bed , agrees to Rx, reluctant to sit up after Rx but did with encouragement and assist with positioning Pain Numeric Pain Scale: 4 Location: Medial Location Body Site: Genital (leobardo) Pain Description: Pressure Appearance edema continues penis and scrotum and LEs, pitting edema LEs Mental Status Patient Orientation: Normal For Age Transfers SCALE: Activities may be completed with or without assistive devices. 6-Sausknrdfs-xqanvhh completes the activity by him/herself with no assistance from a helper. 5-Set-up or Clean-up Assistance-helper sets up or cleans up; patient completes activity. [place] assists only prior to or following the activity. 4-Supervision or Touching Assistance-helper provides verbal cues and/or touching/steadying and/or contact guard assistance as patient completes activity. Assistance may be provided throughout the activity or intermittently. 3-Partial/Moderate Assistance-helper does LESS THAN HALF the effort. [place] lifts, holds or supports trunk or limbs, but provides less than half the effort. 2-Substantial/Maximal Assistance-helper does MORE THAN HALF the effort. [place] lifts or holds trunk or limbs and provides more than half the effort. 9-Kuvubxolu-ifuenl does ALL the effort. Patient does none of the effort to complete the activity. Or, the assistance of 2 or more helpers is required for the patient to complete the activity. If activity was not attempted, code reason: 7-Patient Refused. 9-Not Applicable-not attempted and the patient did not perform the activity before the current illness, exacerbation or injury. 10-Not Attempted due to Environmental Limitations-(lack of equipment, weather restraints, etc.). 88-Not Attempted due to Medical Conditions or Safety Concerns. Roll Left & Right (QC): 6 Sit to Lying (QC): 6 Lying to Sitting/Side of Bed(Q: 6 Sit to Stand (QC): 6 Chair/Dzq-st-Wxgwr Xfer(QC): 6 Weight Bearing Full Weight Bearing Full Weight Bearing Gait Training Does the Patient Walk?: Yes Walk 10 feet (QC): 6 Walk 50 ft with 2 Turns(QC): 6 Walk 150 ft (QC): 6 Gait Persons Needed: 1 Gait Assistive Device: FWW Exercises Supine Ex: Bridging, Ankle pumps, Quad Set, Rolling, Glut sets, Heel Slides, Short Arc Quads, Scooting, Straight leg raise, Hip abd/add Supine Reps: 15 Seated Therapy Exercises: Ankle pumps, Sit to stand, Long arc quads, Hip flexion, Hip abd/add Seated Reps: 15 NuStep Minutes: 8 NuStep Workload: 2 Treatments as above, up in lift recline chair after Rx with enriquez at hand, needs met Assessment Current Status: Good Progress PT Short Term Goals Short Term Goals Time Frame: Dec 25, 2021 Roll Left & Right: 6 Sit to lyin Lying to sitting on side of be: 6 Sit to stand: 4 (SBA) Chair/ilm-ny-qxmhj transfer: 4 (SBA) Walk 10 feet: 4 (SBA) Walk 50 feet with two turns: 4 (SBA) Walk 150 feet: 4 (SBA) PT Foreign Law Consultant Goals Foreign Law Consultant Goals PT Usp Goals Time Frame: Jan 08, 2022 Roll Left & Right (QC): 6 Sit to Lying (QC): 6 Lying-Sitting on Side/Bed(QC): 6 Sit to Stand (QC): 6 Chair/Eau-fs-Fxgne Xfer(QC): 6 Toilet Transfer (QC): 6 Car Transfer (QC): 6 Does the Patient Walk: Yes Walk 10 feet (QC): 6 Walk 50ft with 2 Turns (QC): 6 Walk 150 ft (QC): 6 Walking 10ft on Uneven Surface: 6 1 Step (curb) (QC): 6 4 Steps (QC): 6 12 Steps (QC): 6 Picking up an Object (QC): 6 Wheel 50 feet with 2 turns (QC: 9 Wheel 150 feet: 9 PT Plan Treatment/Plan Treatment Plan: Continue Plan of Care Treatment Plan: Education, Functional Activity Melo, Functional Strength, Group Therapy, Gait, Safety, Therapeutic Exercise, Transfers Treatment Duration: Jan 08, 2022 Frequency: At least 5 of 7 days/Wk (IRF) Estimated Hrs Per Day: 1.5 hours per day Patient and/or Family Agrees t: Yes Safety Risks/Education Patient Education: Gait Training, Transfer Techniques, Correct Positioning, Safety Issues Teaching Recipient: Patient Teaching Methods: Demonstration, Discussion Response to Teaching: Verbalize Understanding, Return Demonstration, Reinforcement Needed Time/GCodes Time In: 900 Time Out: 1000 Total Billed Treatment Time: 60 Total Billed Treatment 1,GT25m,EX35m SOLOMON ROBBINS CALCULATOR OPERATOR Dec 30, 2021 10:05
--- NOTE | 2021-12-30 14:29 | Therapy Group Daily Note ---
Therapy Daily Group Note Patient Education Topic Exercises Exercises LE Seated Exercise, Stretching, Gross Motor, UE Exercise Session Ratio (pt:therapist): 4:1 Goal of Session: Education on ARU Expectations, UE/LE Strengthing Goal Met for this Session: Yes Pt Benefit of Group: Contributions to Others, Increased Functional Strength, Socialization Other/Notes Pt. participated in group PT session this date. Pt. ambulated part way and then used w/c to and from then sat in w/c for session. Pt. was social, introduced himself and shared and interacted appropriately. Pts faced one another in groups either side of a net and played balloon volleyball, reaching and wt shifting ,side to side and for and back. Pts also participated in UE exercises using PVC pipe , Pts were lead through cervical exercises and some lower extremity exercises as well. A fun display of "punny toys " were demonstrated and pts guessed their meaning . Pts were educated in bed positioning and how to manage this. Pt. was assisted back to room after rx with call enriquez at hand and needs met Start Time: 13:00 Stop Time: 14:00 Total Billed Treatment Time: 60 Total Billed Treatment 1,GRP SOLOMON ROBBINS LYE MACHINE OPERATOR Dec 30, 2021 14:28
[2021-12-30 19:28] VITALS: BP 148/79
[2021-12-30] MEDS: ENOXAPARIN 40 MG/0.4 ML (LOVENOX) SYR SC SCH (20:17)
[2021-12-31] MEDS: CATHETER FLUSH 10 ML SYR IVP SCH ×3 (04:54→20:19)
[2021-12-31] MEDS: ACETAMINOPHEN ER 650 MG (TYLENOL ARTHRITIS) PO PRN ×2 (04:54→20:19)
[2021-12-31 05:28] LABS: POTASSIUM 4.2 MMOL/L (3.6-5.0)
[2021-12-31 05:29] LABS: CALCIUM 7.7 MG/DL (8.5-10.1)
[2021-12-31 05:34] LABS: CREATININE SERUM 0.63 MG/DL (0.60-1.30)
[2021-12-31] MEDS: KCL 20 MEQ TAB (K-DUR) PO SCH (05:36)
--- NOTE | 2021-12-31 06:54 | PM&R Progress Note ---
Subjective HPI/CC On Admission Date Seen by Provider: Dec 31, 2021 Time Seen by Provider: 08:30 Subjective/Events-last exam 12/31/2021: Overall doing ok Had some nausea and emesis today General surgery updated DC planned for tomorrow 12/30/2021: No major changes Pain controlled today but had a lot of pain last night Cancer is very aggressive and progressing quickly 12/29/2021: Patient doing a little better Less edema with scrotum and lower extremities Supportive care will continue Monitor closely 12/28/2021: Doing well except pain abdomen Ascites likely the cause of the pain Patient had a very aggressive cancer process and unsure if we can improve things Has appt with Dr Justice for palliative care management 12/27/2021: Pt is doing really well No new concerns Abdominal pain is from the cancer that has progressed and has nothing to do with an obstruction 12/26/2021: CT reveals no obstruction Tube feedings restarted Patient will need to discharge soon and pursue cancer treatment 12/25/2021: Still having issues with constipation Dr Quintero will evaluate No pain otherwise 12/24/2021: Still constipated Loose stools going around the constipation area in the colon Monitor closely 12/23/2021: Multiple BM's noted after mag citrate at 1000pm No falls Pain controlled Fentanyl patch maintained 12/22/2021: Patient doing the same Mag citrate ordered by Dr. Quintero Appreciate Dr. Quintero's assistance Supportive care will continue 12/21/2021: Patient having abdominal pain Constipation is likely an issue but could be ileus for esophageal cancer with obstruction We will check x-ray and consult Dr. Quintero 12/20/2021: Patient doing much better Fentanyl patch has made a huge difference No pain is reported right now Tolerating PEG tube feedings Minimal emesis 12/19/2021: Patient doing better except for the pain Starting fentanyl patch because extended release pills can't go through PEG tube Emesis at times which is an issue that occurred at [facility] Walking around pretty well Supportive care will continue Review of Systems General: Fatigue, Malaise Objective Exam Vital Signs Vital Signs Date Time Temp Pulse Resp B/P (MAP) Pulse Ox O2 Delivery O2 Flow Rate FiO2 12/31/21 09:10 Room Air 12/31/21 07:29 36.6 83 18 144/77 (99) 95 Capillary Refill : General Appearance: No Apparent Distress, WD/WN, Chronically ill, Thin HEENT: PERRL/EOMI, Normal ENT Inspection, Pharynx Normal Neck: Full Range of Motion, Normal Inspection, Non Tender, Supple, Carotid Bruit Respiratory: Chest Non Tender, Lungs Clear, Normal Breath Sounds, No Accessory Muscle Use, No Respiratory Distress Cardiovascular: Regular Rate, Rhythm, No Edema, No Gallop, No JVD, No Murmur, Normal Peripheral Pulses Gastrointestinal: Normal Bowel Sounds, No Organomegaly, No Pulsatile Mass, Non Tender, Soft, Other Back: Normal Inspection, No CVA Tenderness, No Vertebral Tenderness Extremity: Normal Capillary Refill, Normal Inspection, Normal Range of Motion, Non Tender, No Calf Tenderness, No Pedal Edema Neurologic/Psychiatric: Alert, Oriented x3, No Motor/Sensory Deficits, acupuncturist II- XII Norm as Tested, Depressed Affect, Motor Weakness Skin: Normal Color, Warm/Dry Lymphatic: No Adenopathy Results/Procedures Lab Laboratory Tests 12/31/21 05:05 Patient resulted labs reviewed. FIM Transfers Therapy Code Descriptions/Definitions Functional [place] Measure: 0=Not Assessed/NA 4=Minimal Assistance 1=Total Assistance 5=Supervision or Setup 2=Maximal Assistance 6=Modified [place] 3=Moderate Assistance 7=Complete IndependenceSCALE: Activities may be completed with or without assistive devices. 9-Ovjxyhzyye-ehjsklp completes the activity by him/herself with no assistance from a helper. 5-Set-up or Clean-up Assistance-helper sets up or cleans up; patient completes activity. [place] assists only prior to or following the activity. 4-Supervision or Touching Assistance-helper provides verbal cues and/or touching/steadying and/or contact guard assistance as patient completes activity. Assistance may be provided throughout the activity or intermittently. 3-Partial/Moderate Assistance-helper does LESS THAN HALF the effort. [place] lifts, holds or supports trunk or limbs, but provides less than half the effort. 2-Substantial/Maximal Assistance-helper does MORE THAN HALF the effort. [place] lifts or holds trunk or limbs and provides more than half the effort. 6-Wvipiqssm-mnjebu does ALL the effort. Patient does none of the effort to complete the activity. Or, the assistance of 2 or more helpers is required for the patient to complete the activity. If activity was not attempted, code reason: 7-Patient Refused. 9-Not Applicable-not attempted and the patient did not perform the activity before the current illness, exacerbation or injury. 10-Not Attempted due to Environmental Limitations-(lack of equipment, weather restraints, etc.). 88-Not Attempted due to Medical Conditions or Safety Concerns. Roll Left to Right (QC): 6 Sit to Lying (QC): 6 Sit to Stand (QC): 6 Chair/Wgz-ul-Ehgve Xfer(QC): 6 Car Transfer (QC): 4 Gait Training Does the Patient Walk?: Yes Distance: 150' x2 Walk 10 feet (QC): 6 Walk 50 ft with 2 Turns(QC): 6 Walk 150 ft (QC): 6 Walking 10ft/uneven surface-QC: 4 Gait Persons Needed: 1 Gait Assistive Device: FWW Wheelchair Training Does the Pt Use a Wheelchair?: Yes Wheel 50 ft with 2 turns (QC): 4 Wheel 150 ft (QC): 4 Type of Wheelchair: Manual Stair Training #of Steps: 4 1 Step (curb) (QC): 4 4 Steps (QC): 4 12 Steps (QC): 88 Balance Picking up an Object (QC): 4 (CGA without using a product tester fiberglass) ADL-Treatment Eating (QC): 88 Oral Hygiene (QC): 6 (Per clinical judgment, pt would be able to complete task independently. Pt doesn't have his dentures with him so declines task.) Shower/Bathe Self (QC): 5 (set up to cover port prior to shower.) Upper Body Dressing (QC): 5 (set up, OT assisted with managing IV lines attached to port on chest.) Lower Body Dressing (QC): 5 (set up) On/Off Footwear (QC): 6 (IND don/doff gripper socks.) Toileting Hygiene (QC): 4 Toilet Transfer (QC): 6 Assessment/Plan Assessment and Plan Assess & Plan/Chief Complaint Assessment: Debility Profound weight loss Esophageal cancer with widespread metastasis Dysphagia Chronic pain Hyperlipidemia Hyponatremia placed on fluid restriction Abdominal pain work-up in process 12/21/2021 dx with narcotic bowel and still large amount of stool in colon reviewed CT per Dr Quintero showing no obstruction Plan: Fluid restriction Supportive care Tube feedings PT and OT 12/19/2021: Add fentanyl patch Supportive care 12/20/2021: Continue fentanyl patch Monitor closely 12/21/2021: Consult Dr. Quintero Abdominal x-ray 12/22/2021: Mag citrate Aggressive bowel regimen 12/23/2021: Continue laxatives Monitor closely 12/24/2021: Dr Quintero appreciated 12/25/2021: CT abd pelvis 12/26/2021: Fentanyl patch Discharge home soon in order to pursue cancer treatment which will be palliative at best 12/27/2021: Establish care with oncology as an outpatient No sign of obstruction 12/28/2021: Monitor pain TF to continue 12/29/2021: Hemoglobin stable will initiate Lovenox Supportive care 12/30/2021: DC soon Needs palliative care cancer treatment 12/31/2021: Emesis treatment (1) Debility CALVIN OVERTON DO Dec 31, 2021 06:54
[2021-12-31 07:29] VITALS: BP 144/77
[2021-12-31] MEDS: LACTULOSE SYRUP 10GM/15ML (ENULOSE) 30ML UDC PEG SCH (07:59)
[2021-12-31] MEDS: DOCUSATE SODIUM 10 MG/ML 10 ML UDC (COLACE) PO SCH ×2 (07:59→20:18)
[2021-12-31] MEDS: polyethylene glycoL POWDER 17 GM (MIRALAX) PACK PO SCH (08:00)
[2021-12-31] MEDS: SODIUM CHLORIDE 1 GM TABLET PO SCH ×4 (08:00→20:19)
[2021-12-31] MEDS: PANTOPRAZOLE 2 MG/ML LIQUID 200 ML (PROTONIX) PEG SCH ×6 (08:00→20:20)
[2021-12-31] MEDS: fentaNYL PATCH 25 MCG (DURAGESIC) TD SCH (09:01)
[2021-12-31] MEDS: [UNRECOGNIZED DRUG - REMARK] TP SCH (09:54)
--- NOTE | 2021-12-31 10:33 | Occupational Ther Daily Note ---
OT Current Status-Daily Note Subjective Pt agreeable to OT Tx. States he doesn't feel like he is ready to go home due to pain and "everything else", when asked to elaborate on what else, he states the swelling in LEs/scrotum. Pt feels like he is ready to discharge from a therapy stand point and his son is able to assist as needed at home. ADL-Treatment Therapy Code Descriptions/Definitions Functional [place] Measure: 0=Not Assessed/NA 4=Minimal Assistance 1=Total Assistance 5=Supervision or Setup 2=Maximal Assistance 6=Modified [place] 3=Moderate Assistance 7=Complete IndependenceSCALE: Activities may be completed with or without assistive devices. 4-Ujmnralwha-mfavexc completes the activity by him/herself with no assistance from a helper. 5-Set-up or Clean-up Assistance-helper sets up or cleans up; patient completes activity. [place] assists only prior to or following the activity. 4-Supervision or Touching Assistance-helper provides verbal cues and/or touching/steadying and/or contact guard assistance as patient completes activity. Assistance may be provided throughout the activity or intermittently. 3-Partial/Moderate Assistance-helper does LESS THAN HALF the effort. [place] lifts, holds or supports trunk or limbs, but provides less than half the effort. 2-Substantial/Maximal Assistance-helper does MORE THAN HALF the effort. [place] lifts or holds trunk or limbs and provides more than half the effort. 0-Smnefdqky-ilgjlx does ALL the effort. Patient does none of the effort to complete the activity. Or, the assistance of 2 or more helpers is required for the patient to complete the activity. If activity was not attempted, code reason: 7-Patient Refused. 9-Not Applicable-not attempted and the patient did not perform the activity before the current illness, exacerbation or injury. 10-Not Attempted due to Environmental Limitations-(lack of equipment, weather restraints, etc.). 88-Not Attempted due to Medical Conditions or Safety Concerns. Eating (QC): 88 (PEG tube) Oral Hygiene (QC): 6 (Per clinical judgment, pt would be independent with task, but refuses to complete.) Shower/Bathe Self (QC): 5 Upper Body Dressing (QC): 5 Lower Body Dressing (QC): 3 (Min A doffing pants, pt able to don with set up.) On/Off Footwear: 6 Toileting Hygiene (QC): 3 (Min A with hygiene for thoroughness, pt appears self limiting with task.) Toilet Transfer (QC): 6 (IND on/off toilet.) Other Treatment Pt in bed, transferred supine to sit EOB, independently. Pt used FWW to transfer into bathroom and onto toilet, pt urinated independently. Pt then transferred to PR to doff clothes and completed shower. After drying off, pt c/o feeling like he needs to have a BM. Pt transferred to toilet, SBA due to just finishing shower. Pt completed toileting, requiring min A for thoroughness after BM. OT encouraged pt to complete himself, but pt states he will have help at home. Pt donned underwear and socks at toilet, c/o discomfort due to swollen scrotum. Pt requests to have BM again, stood to lower pants, then completed toileting, again requiring min A for thoroughness. Pt transferred to recliner to don shirt and jeans, pt unable to button jeans due to swelling so he took them off. Pt's R pant leg got stuck on his sock, pt reports unable to complete himself, but appears self limiting. Min A with doffing pants. After finishing dressing, pt requests to toilet again, min A. OT/PT cotreat due to skill of 2 clinicians required which a reha tech could not perform in order to coordinate UE/LEs, decrease fall risk, and focus on higher level balance tasks. OT focused on UE placement, and cues for sequencing/safety. PT focused on LE placement, and dynamic standing balance. Pt used FWW to transfer into therapy gym. Pt completed x2 rounds of balloon batting task, reaching in all planes, SBA for standing balance. Post tx, pt in gym with PT, all needs met. Education OT Patient Education: Correct positioning, Energy conservation, Modified ADL techniques, Progress toward Goal/Update tx plan, Purpose of tx/functional activities, Rehab process Teaching Recipient: Patient Teaching Methods: Discussion Response to Teaching: Verbalize Understanding OT Short Term Goals Short Term Goals Time Frame: Dec 25, 2021 Eatin Oral hygiene: 4 Toileting hygiene: 5 Shower/bathe self: 3 Upper body dressin Lower body dressin Putting on/taking off footwear: 4 OT Type Cutter Goals Type Cutter Goals Time Frame: Dec 31, 2021 Eating (QC): 88 Oral Hygiene (QC): 5 (met) Toileting Hygiene (QC): 6 (not met) Shower/Bathe Self (QC): 5 (met) Upper Body Dressing (QC): 6 (not met) Lower Body Dressing (QC): 6 (not met) On/Off Footwear (QC): 6 (met) 1=Demonstrate adherence to instructed precautions during ADL tasks. 2=Patient will verbalize/demonstrate understanding of assistive devices/modifications for ADL. 3=Patient will improve strength/tolerance for activity to enable patient to perform ADL's. OT Education/Plan Problem List/Assessment Assessment: Decreased Activ Tolerance, Decreased UE Strength Discharge Recommendations Plan/Recommendations: Continue POC Treatment Plan/Plan of Care Patient would benefit from OT for education, treatment and training to promote independence in ADL's, mobility, safety and/or upper extremity function for ADL's. Plan of Care: ADL Retraining, Concurrent Therapy, Functional Mobility, Group Exercise/Act as Ind, UE Funct Exercise/Act Treatment Duration: Dec 31, 2021 Frequency: At least 5 of 7 days/Wk (IRF) Estimated Hrs Per Day: 1.5 hours per day (75-90 min/day ) Agreement: Yes Rehab Potential: Guarded Time/GCodes Start Time: 09:00 Stop Time: 10:30 Total Time Billed (hr/min): 90 Billed Treatment Time OT tx x60', cotreat x30' 1, ADL 5 (70'), FA (20') FRANCINE DUEÑAS OT Dec 31, 2021 10:32
--- NOTE | 2021-12-31 11:24 | Physical Therapy Daily Note ---
PT Daily Note-Current Subjective Pt working with OT upon arrival. Pt agrees to short PT/OT co-treat then indiv. tx. Pain Numeric Pain Scale: 6 Location Body Site: Abdomen Pain Description: Sharp Mental Status Patient Orientation: Person, Place, Time, Situation Transfers SCALE: Activities may be completed with or without assistive devices. 6-Tfipsdbkph-nspixlg completes the activity by him/herself with no assistance from a helper. 5-Set-up or Clean-up Assistance-helper sets up or cleans up; patient completes activity. [place] assists only prior to or following the activity. 4-Supervision or Touching Assistance-helper provides verbal cues and/or touching/steadying and/or contact guard assistance as patient completes activity. Assistance may be provided throughout the activity or intermittently. 3-Partial/Moderate Assistance-helper does LESS THAN HALF the effort. [place] lifts, holds or supports trunk or limbs, but provides less than half the effort. 2-Substantial/Maximal Assistance-helper does MORE THAN HALF the effort. [place] lifts or holds trunk or limbs and provides more than half the effort. 1-Vabtwsygi-qiuhuw does ALL the effort. Patient does none of the effort to complete the activity. Or, the assistance of 2 or more helpers is required for the patient to complete the activity. If activity was not attempted, code reason: 7-Patient Refused. 9-Not Applicable-not attempted and the patient did not perform the activity before the current illness, exacerbation or injury. 10-Not Attempted due to Environmental Limitations-(lack of equipment, weather restraints, etc.). 88-Not Attempted due to Medical Conditions or Safety Concerns. Roll Left & Right (QC): 6 Sit to Lying (QC): 6 Lying to Sitting/Side of Bed(Q: 6 Sit to Stand (QC): 6 Chair/Crz-ax-Eglyb Xfer(QC): 6 Toilet Transfer (QC): 5 Car Transfer (QC): 5 Weight Bearing Full Weight Bearing Full Weight Bearing Gait Training Does the Patient Walk?: Yes Distance: 500' Walk 10 feet (QC): 5 Walk 50 ft with 2 Turns(QC): 5 Walk 150 ft (QC): 5 Walking 10ft/uneven surface-QC: 5 Gait Assistive Device: FWW Wheelchair Training Does the Pt Use a Wheelchair?: No Stair Training Stair Training: Handrails/: 1 handrail #of Steps: 8 1 Step (curb) (QC): 5 4 Steps (QC): 4 Stairs: Pattern: Step to Balance Picking up an Object (QC): 5 Treatments OT/PT co-treat due to skill of 2 clinicians required which a reha tech could not perform in order to coordinate UE/LEs, decrease fall risk, and focus on higher level balance tasks. OT focused on UE placement, and cues for sequencing/safety. PT focused on LE placement, and dynamic standing balance. Pt used FWW to transfer into therapy gym. Pt completed x2 rounds of balloon batting task, reaching in all planes, SBA for standing balance. OT departs at this time, PT continues tx. Pt completes QC scoring items listed above for anticipated d/c tomorrow. Pt returns to room to rest in bed with all needs met, call light in hand. Assessment Current Status: Good Progress Pt is capable of completing tasks given but reports abdominal discomfort as well as nausea. PT Short Term Goals Short Term Goals Time Frame: Dec 25, 2021 Roll Left & Right: 6 Sit to lyin Lying to sitting on side of be: 6 Sit to stand: 4 (SBA) Chair/wey-kq-npwnj transfer: 4 (SBA) Walk 10 feet: 4 (SBA) Walk 50 feet with two turns: 4 (SBA) Walk 150 feet: 4 (SBA) PT Gear Grinder Goals Senior Care Goals PT Senior Care Goals Time Frame: Jan 08, 2022 Roll Left & Right (QC): 6 Sit to Lying (QC): 6 Lying-Sitting on Side/Bed(QC): 6 Sit to Stand (QC): 6 Chair/Nrk-ln-Jazte Xfer(QC): 6 Toilet Transfer (QC): 6 Car Transfer (QC): 6 Does the Patient Walk: Yes Walk 10 feet (QC): 6 Walk 50ft with 2 Turns (QC): 6 Walk 150 ft (QC): 6 Walking 10ft on Uneven Surface: 6 1 Step (curb) (QC): 6 4 Steps (QC): 6 12 Steps (QC): 6 Picking up an Object (QC): 6 Wheel 50 feet with 2 turns (QC: 9 Wheel 150 feet: 9 PT Plan Problem List Problem List: Activity Tolerance Treatment/Plan Treatment Plan: Continue Plan of Care Treatment Plan: Education, Functional Activity Melo, Functional Strength, Group Therapy, Gait, Safety, Therapeutic Exercise, Transfers Treatment Duration: Jan 08, 2022 Frequency: At least 5 of 7 days/Wk (IRF) Estimated Hrs Per Day: 1.5 hours per day Patient and/or Family Agrees t: Yes Time/GCodes Time In: 1000 Time Out: 1100 Total Billed Treatment Time: 60 Total Billed Treatment Co-treat w/OT for 30m ([id number]), Indiv. for 30m 1, GT (20m) & FA x3 (40m) ABBI YANEZ TUBE REPAIRER Dec 31, 2021 11:24
[2021-12-31] MEDS: ONDANSETRON 4 MG/2 ML (SDV) Z0FRAN IVP PRN ×2 (12:51→18:01)
--- NOTE | 2021-12-31 15:55 | Physical Therapy Progress Note ---
Therapy Progress Note MORPHOLOGIST attempted tx this afternoon and pt refused citing nausea & vomiting. Pt has struggled with abdominal discomfort and nausea regularly. Nausea med already given and not working for pt. QC obtained in morning tx and pt asked to rest. All needs met. ABBI YANEZ MORPHOLOGIST Dec 31, 2021 15:55
[2021-12-31 20:08] VITALS: BP 129/70
[2021-12-31] MEDS: ENOXAPARIN 40 MG/0.4 ML (LOVENOX) SYR SC SCH (20:19)
[2021-12-31] MEDS ORDERED: MIRTAZAPINE 15 MG (REMERON) TAB PEG SCH (21:00)
[2022-01-01] MEDS: KCL 20 MEQ TAB (K-DUR) PO SCH (02:32)
[2022-01-01] MEDS: ACETAMINOPHEN ER 650 MG (TYLENOL ARTHRITIS) PO PRN (03:40)
[2022-01-01] MEDS: CATHETER FLUSH 10 ML SYR IVP SCH (03:45)
[2022-01-01] MEDS ORDERED: POLY17PO54 PO (05:29)
[2022-01-01] MEDS ORDERED: MIRT-47 PEG (05:29)
[2022-01-01] MEDS ORDERED: FENT1PAT8 TD (05:29)
[2022-01-01] MEDS ORDERED: NF-NACL1GT PO (05:29)
[2022-01-01] MEDS ORDERED: ONDA4TAB11 PO (05:29)
[2022-01-01] MEDS ORDERED: DOCU50LI26 PO (05:29)
[2022-01-01] MEDS ORDERED: OXC5T PO (05:29)
[2022-01-01] MEDS ORDERED: NF-SODBICA PEG (05:29)
[2022-01-01] MEDS ORDERED: LACT20SO2 PEG (05:29)
--- NOTE | 2022-01-01 05:31 | D/C HH Face to Face Order ---
D/C Face to Face Orders Reconcile Patient Problems Problems Reviewed?: Yes Instructions for Patient Kiya Patient Instructions/FollowUp: PCP [address] Justice for cancer treatment Physician to follow [facility] Diet for Home: Tube Feeding Patient Problems: Esophageal cancer with mets Patient Data-Allergies,Ht & Wt Patient Allergies: Coded Allergies: No Allergy Information Available (Unverified , 12/12/21) Home Health Need/Face to Face Date of Face to Face: Jan 01, 2022 Clinical Findings: Generalized weakness and fatigue, Instability, Muscle weakness I have seen Pt [id number]: Yes Discharged To: Home Diagnosis/Conditions: Esophageal cancer Patient is Homebound due to: Nino fall risk due to instabilty, Muscle weakness Homebound Status Due to the above stated illness, injury or surgical procedure (medical condition or diagnosis) and associated clinical findings, the patient is homebound because of his/her inability to leave home except with aid of a supportive device and/or person AND leaving the home requires a considerable and taxing effort or is medically contraindicated. Pt req the following assistanc: Walker Home Health Nursing Orders Home Health Services Order: Nursing Services, Ticket Sorter-Evaluate & Treat, Physical Therapy-Evaluate & Treat Certify Stmt I certify that this patient is under my care and that I, a nurse practitioner or a physician; a assistant hall director working with me, had a face to face encounter that - meets the physician face to face encounter requirements with this patient as dated. CALVIN OVERTON DO Jan 01, 2022 05:31
--- NOTE | 2022-01-01 05:32 | Discharge Summary ---
Diagnosis/Chief Complaint Date of Admission Dec 18, 2021 at 15:04 Date of Discharge Discharge Date: Jan 01, 2022 Discharge Diagnosis Assessment: Debility Profound weight loss Esophageal cancer with widespread metastasis Dysphagia Chronic pain Hyperlipidemia Hyponatremia placed on fluid restriction Abdominal pain work-up in process 12/21/2021 dx with narcotic bowel and still large amount of stool in colon reviewed CT per Dr Quintero showing no obstruction Plan: Fluid restriction Supportive care Tube feedings PT and OT 12/19/2021: Add fentanyl patch Supportive care 12/20/2021: Continue fentanyl patch Monitor closely 12/21/2021: Consult Dr. Quintero Abdominal x-ray 12/22/2021: Mag citrate Aggressive bowel regimen 12/23/2021: Continue laxatives Monitor closely 12/24/2021: Dr Quintero appreciated 12/25/2021: CT abd pelvis 12/26/2021: Fentanyl patch Discharge home soon in order to pursue cancer treatment which will be palliative at best 12/27/2021: Establish care with oncology as an outpatient No sign of obstruction 12/28/2021: Monitor pain TF to continue 12/29/2021: Hemoglobin stable will initiate Lovenox Supportive care 12/30/2021: DC soon Needs palliative care cancer treatment 12/31/2021: Emesis treatment Discharge Summary Discharge Physical Examination Allergies: Coded Allergies: No Allergy Information Available (Unverified , 12/12/21) Vitals & I&Os Vital Signs Date Time Temp Pulse Resp B/P (MAP) Pulse Ox O2 Delivery O2 Flow Rate FiO2 01/01/22 14:00 36.4 79 16 126/72 91 Room Air General Appearance: Alert, Oriented X3, Cooperative Respiratory: Clear to Auscultation Cardiovascular: Regular Rate Psych/Mental Status: Mental Status NL Hospital Course Was the Problem List Reviewed?: Yes Pt had a lengthy hospital course for 15 days after he was admitted from [facility] after esophageal cancer. Pt was status post stent placement with wide spread metastasis. He did have a lot of gastrointestinal issues with ileus. No evidence of obstruction on CT scan. General surgery was consulted. Maintain medication for JUSTO. Overall he was able to tolerate tube feedings. Pain was controlled on Oxycodone and Fentanyl patch. Overall he was doing very well. Prognosis is poor given his widespread cancer. Labs (last 24 hrs) Laboratory Tests 12/19/21 06:20: White Blood Count 9.0, Red Blood Count 3.30L, Hemoglobin 9.4L, Hematocrit 29L, Mean Corpuscular Volume 87, Mean Corpuscular Hemoglobin 29, Mean Corpuscular H emoglobin Concent 33, Red Cell Distribution Width 15.1H, Platelet Count 401H, Mean Platelet Volume 8.6L, Immature Granulocyte % (Auto) 0, Neutrophils (%) (Auto) 76H, Lymphocytes (%) (Auto) 15, Monocytes (%) (Auto) 7, Eosinophils (%) (Auto) 1, Basophils (%) (Auto) 0, Neutrophils # (Auto) 6.8, Lymphocytes # (Auto) 1.4, Monocytes # (Auto) 0.6, Eosinophils # (Auto) 0.1, Basophils # (Auto) 0.0, Immature Granulocyte # (Auto) 0.0, Sodium Level 138, Potassium Level 4.1, Chloride Level 101, Carbon Dioxide Level 24, Anion Gap 13, Blood Urea Nitrogen 16, Creatinine 0.76, Estimat Glomerular Filtration Rate 94, BUN/Creatinine Ratio 21, Glucose Level 114H, Calcium Level 8.1L, Corrected Calcium 9.3, Total Bilirubin 0.4, Aspartate Amino Transf (AST/SGOT) 34, Alanine Aminotransferase (ALT/SGPT) 20, Alkaline Phosphatase 79, Total Protein 5.5L, Albumin 2.5L 12/23/21 06:25: White Blood Count 6.9, Red Blood Count 3.30L, Hemoglobin 9.2L, Hematocrit 29L, Mean Corpuscular Volume 87, Mean Corpuscular Hemoglobin 28, Mean Corpuscular Hemoglobin Concent 32, Red Cell Distribution Width 14.6H, Platelet Count 405H, Mean Platelet Volume 8.8L, Immature Granulocyte % (Auto) 1, Neutrophils (%) (Auto) 78H, Lymphocytes (%) (Auto) 13, Monocytes (%) (Auto) 7, Eosinophils (%) (Auto) 1, Basophils (%) (Auto) 0, Neutrophils # (Auto) 5.3, Lymphocytes # (Auto) 0.9L, Monocytes # (Auto) 0.5, Eosinophils # (Auto) 0.1, Basophils # (Auto) 0.0, Immature Granulocyte # (Auto) 0.0, Sodium Level 132L, Potassium Level 4.0, Chloride Level 99, Carbon Dioxide Level 21, Anion Gap 12, Blood Urea Nitrogen 11, Creatinine 0.74, Estimat Glomerular Filtration Rate 95, BUN/Creatinine Ratio 15, Glucose Level 73, Calcium Level 7.8L, Corrected Calcium 9.0, Total Bilirubin 0.3, Aspartate Amino Transf (AST/SGOT) 34, Alanine Aminotransferase (ALT/SGPT) 18, Alkaline Phosphatase 81, Total Protein 5.4L, Albumin 2.5L 12/30/21 05:55: White Blood Count 7.4, Red Blood Count 3.43L, Hemoglobin 9.6L, Hematocrit 29L, Mean Corpuscular Volume 85, Mean Corpuscular Hemoglobin 28, Mean Corpuscular Hemoglobin Concent 33, Red Cell Distribution Width 14.5, Platelet Count 352, Mean Platelet Volume 8.9L, Immature Granulocyte % (Auto) 1, Neutrophils (%) (Auto) 79H, Lymphocytes (%) (Auto) 13, Monocytes (%) (Auto) 7, Eosinophils (%) (Auto) 1, Basophils (%) (Auto) 0, Neutrophils # (Auto) 5.8, Lymphocytes # (Auto) 1.0, Monocytes # (Auto) 0.5, Eosinophils # (Auto) 0.1, Basophils # (Auto) 0.0, Immature Granulocyte # (Auto) 0.0, Sodium Level 132L, Potassium Level 3.9, Chl oride Level 97L, Carbon Dioxide Level 25, Anion Gap 10, Blood Urea Nitrogen 10, Creatinine 0.62, Estimat Glomerular Filtration Rate 100, BUN/Creatinine Ratio 16, Glucose Level 100, Calcium Level 7.7L, Corrected Calcium 9.1, Total Bilirubin 0.3, Aspartate Amino Transf (AST/SGOT) 37H, Alanine Aminotransferase (ALT/SGPT) 22, Alkaline Phosphatase 122, Total Protein 5.0L, Albumin 2.3L 12/31/21 05:05: Sodium Level 132L, Potassium Level 4.2, Chloride Level 97L, Carbon Dioxide Level 25, Anion Gap 10, Blood Urea Nitrogen 11, Creatinine 0.63, Estimat Glomerular Filtration Rate 100, BUN/Creatinine Ratio 17, Glucose Level 96, Calcium Level 7.7L Pending Labs Laboratory Tests 12/19/21 06:20: White Blood Count 9.0, Red Blood Count 3.30, Hemoglobin 9.4, Hematocrit 29, Mean Corpuscular Volume 87, Mean Corpuscular Hemoglobin 29, Mean Corpuscular Hemogl obin Concent 33, Red Cell Distribution Width 15.1, Platelet Count 401, Mean Platelet Volume 8.6, Immature Granulocyte % (Auto) 0, Neutrophils (%) (Auto) 76, Lymphocytes (%) (Auto) 15, Monocytes (%) (Auto) 7, Eosinophils (%) (Auto) 1, Basophils (%) (Auto) 0, Neutrophils # (Auto) 6.8, Lymphocytes # (Auto) 1.4, Monocytes # (Auto) 0.6, Eosinophils # (Auto) 0.1, Basophils # (Auto) 0.0, Immature Granulocyte # (Auto) 0.0, Sodium Level 138, Potassium Level 4.1, Chloride Level 101, Carbon Dioxide Level 24, Anion Gap 13, Blood Urea Nitrogen 16, Creatinine 0.76, Estimat Glomerular Filtration Rate 94, BUN/Creatinine Ratio 21, Glucose Level 114, Calcium Level 8.1, Corrected Calcium 9.3, Total Bilirubin 0.4, Aspartate Amino Transf (AST/SGOT) 34, Alanine Aminotransferase (ALT/SGPT) 20, Alkaline Phosphatase 79, Total Protein 5.5, Albumin 2.5 12/23/21 06:25: White Blood Count 6.9, Red Blood Count 3.30, Hemoglobin 9.2, Hematocrit 29, Mean Corpuscular Volume 87, Mean Corpuscular Hemoglobin 28, Mean Corpuscular Hemoglobin Concent 32, Red Cell Distribution Width 14.6, Platelet Count 405, Mean Platelet Volume 8.8, Immature Granulocyte % (Auto) 1, Neutrophils (%) (Auto) 78, Lymphocytes (%) (Auto) 13, Monocytes (%) (Auto) 7, Eosinophils (%) (Auto) 1, Basophils (%) (Auto) 0, Neutrophils # (Auto) 5.3, Lymphocytes # (Auto) 0.9, Monocytes # (Auto) 0.5, Eosinophils # (Auto) 0.1, Basophils # (Auto) 0.0, Immature Granulocyte # (Auto) 0.0, Sodium Level 132, Potassium Level 4.0, Chloride Level 99, Carbon Dioxide Level 21, Anion Gap 12, Blood Urea Nitrogen 11, Creatinine 0.74, Estimat Glomerular Filtration Rate 95, BUN/Creatinine Ratio 15, Glucose Level 73, Calcium Level 7.8, Corrected Calcium 9.0, Total Bilirubin 0.3, Aspartate Amino Transf (AST/SGOT) 34, Alanine Aminotransferase (ALT/SGPT) 18, Alkaline Phosphatase 81, Total Protein 5.4, Albumin 2.5 12/30/21 05:55: White Blood Count 7.4, Red Blood Count 3.43, Hemoglobin 9.6, Hematocrit 29, Mean Corpuscular Volume 85, Mean Corpuscular Hemoglobin 28, Mean Corpuscular Hemoglobin Concent 33, Red Cell Distribution Width 14.5, Platelet Count 352, Mean Platelet Volume 8.9, Immature Granulocyte % (Auto) 1, Neutrophils (%) (Auto) 79, Lymphocytes (%) (Auto) 13, Monocytes (%) (Auto) 7, Eosinophils (%) (Auto) 1, Basophils (%) (Auto) 0, Neutrophils # (Auto) 5.8, Lymphocytes # (Auto) 1.0, Monocytes # (Auto) 0.5, Eosinophils # (Auto) 0.1, Basophils # (Auto) 0.0, Immature Granulocyte # (Auto) 0.0, Sodium Level 132, Potassium Level 3.9, Chloride Level 97, Carbon Dioxide Level 25, Anion Gap 10, Blood Urea Nitrogen 10, Creatinine 0.62, Estimat Glomerular Filtration Rate 100, BUN/Creatinine Ratio 16, Glucose Level 100, Calcium Level 7.7, Corrected Calcium 9.1, Total Bilirubin 0.3, Aspartate Amino Transf (AST/SGOT) 37, Alanine Aminotransferase (ALT/SGPT) 22, Alkaline Phosphatase 122, Total Protein 5.0, Albumin 2.3 12/31/21 05:05: Sodium Level 132, Potassium Level 4.2, Chloride Level 97, Carbon Dioxide Level 25, Anion Gap 10, Blood Urea Nitrogen 11, Creatinine 0.63, Estimat Glomerular Filtration Rate 100, BUN/Creatinine Ratio 17, Glucose Level 96, Calcium Level 7.7 Discharge Home Medications: Active Scripts Active Ondansetron Odt (Ondansetron) 4 Mg Tab.rapdis 4 Mg PO Q6H PRN Polyethylene Glycol 3350 17 Gram Powd.pack 17 Gm PO DAILY Docu Liquid (Docusate Sodium) 50 Mg/5 Ml Liquid 100 Mg PO BID Sodium Bicarbonate 650 Mg Tablet 650 Mg PEG UD PRN Sodium Chloride 1 Gram Tab 2 Gm PO QID Lactulose 20 Gram/30 Ml Solution 10 Gm PEG DAILY Mirtazapine 15 Mg Tab.rapdis 15 Mg PEG HS Oxyir Tablet (Oxycodone HCl) 5 Mg Tab 5 Mg PO Q8H PRN Fentanyl Patch 25 MCG (Fentanyl) 25 Mcg/Hour Patch.td72 25 Mcg TD Q72H Reported Tylenol Pm Ex-Strength Caplet (Acetaminophen/Diphenhydramine) 500 Mg-25 Mg Tablet 2 Each PO HS Instructions to patient/family Please see electronic discharge instructions given to patient. Diagnosis/Problems Diagnosis/Problems (1) Debility CALVIN OVERTON DO Jan 01, 2022 05:32
[2022-01-01 07:33] VITALS: BP 126/72
[2022-01-01] MEDS: LACTULOSE SYRUP 10GM/15ML (ENULOSE) 30ML UDC PEG SCH (09:08)
[2022-01-01] MEDS: SODIUM CHLORIDE 1 GM TABLET PO SCH (09:08)
[2022-01-01] MEDS: DOCUSATE SODIUM 10 MG/ML 10 ML UDC (COLACE) PO SCH (09:08)
[2022-01-01] MEDS: polyethylene glycoL POWDER 17 GM (MIRALAX) PACK PO SCH (09:08)
[2022-01-01] MEDS: PANTOPRAZOLE 2 MG/ML LIQUID 200 ML (PROTONIX) PEG SCH ×3 (09:10)
--- NOTE | 2022-01-01 13:52 | Therapy Team Discharge Summary ---
Therapy Discharge Summary Discharge Recommendations Date of Discharge Physical Therapy Roll Left to Right (QC): 6 Sit to Lying (QC): 6 Lying to Sitting/Side of Bed(Q: 6 Sit to Stand (QC): 6 Chair/Wwn-kc-Zhwem Xfer(QC): 6 Toilet Transfer (QC): 4 Car Transfer (QC): 5 Does the Patient Walk: Yes Mode of Locomotion: Walk Anticipated Mode of Locomotion: Walk Walk 10 feet (QC): 5 Walk 50 ft with 2 Turns(QC): 5 Walk 150 ft (QC): 5 Walking 10ft on uneven surface: 5 Distance: 150'x2, 120'x3 Gait Assistive Device: FWW Does the Pt Use a Wheelchair: No Wheel 50 ft with 2 turns (QC): 4 Wheel 150 ft (QC): 4 Type of Wheelchair: Manual #of Steps: 8 1 Step (curb) (QC): 5 4 Steps (QC): 4 12 Steps (QC): 88 Balance Sitting Static: Normal Balance Sitting Dynamic: Normal Balance-Standing Static: Fair Picking up an Object (QC): 5 Occupational Therapy Pt admitted to ARU with debility. At [facility], pt was independent with ADLs and functional mobility, no AD. Upon initial evaluation, he required SBA with showering, set up upper body dressing, min A LE dressing and footwear and CGA toileting. OT tx focused on increasing BUE Strength and activity tolerance, and increasing safety and independence with ADLs. Pt made functional progress towa rds goals, but did not attain all LTGs. Pt discharged from facility, d/c from OT at this time. Decreased Activ Tolerance, Decreased UE Strength Eating (QC): 88 (PEG tube) Oral Hygiene (QC): 6 (Per clinical judgment, pt would be independent with task, but refuses to complete.) Shower/Bathe Self (QC): 5 Upper Body Dressing (QC): 5 Lower Body Dressing (QC): 3 (Min A doffing pants, pt able to don with set up.) On/Off Footwear (QC): 6 Toileting Hygiene (QC): 3 (Min A with hygiene for thoroughness, pt appears self limiting with task.) PT Mcc Goals Getterer Goals PT Mcc Goals Time Frame: Jan 08, 2022 Roll Left to Right (QC): 6 Sit to Lying (QC): 6 Lying-Sitting on Side/Bed(QC): 6 Sit to Stand (QC): 6 Chair/Zqb-yp-Widky Xfer(QC): 6 Car Transfer (QC): 6 Does the Patient Walk: Yes Walk 10 feet (QC): 6 Walk 10ft-Uneven Surface(QC): 6 Walk 50ft with 2 Turns (QC): 6 Walk 150 ft (QC): 6 Wheel 50 feet with 2 turns (QC: 9 1 Step (curb) (QC): 6 4 Steps (QC): 6 12 Steps (QC): 6 Picking up an Object (QC): 6 OT Mcc Goals Getterer Goals Time Frame: Dec 31, 2021 Eating (QC): 88 Oral Hygiene (QC): 5 (met) Shower/Bathe Self (QC): 5 (met) Upper Body Dressing (QC): 6 (not met) Lower Body Dressing (QC): 6 (not met) On/Off Footwear (QC): 6 (met) Toileting Hygiene (QC): 6 (not met) Toilet/Commode Transfer (QC): 6 1=Demonstrate adherence to instructed precautions during ADL tasks. 2=Patient will verbalize/demonstrate understanding of assistive devices/modifications for ADL. 3=Patient will improve strength/tolerance for activity to enable patient to perform ADL's. Speech Mcc Goals Mcc Goals 1. The patient will demonstrate improved cognitive linguistic function for safe discharge to the least restrictive environment. 2. The patient will tolerate the least restrictive diet consistency without s/s of suspected aspiration. Expression of Ideas/Wants: 4 Understanding Verbal Content: 4 Brief Interview-Mental Status: Yes Repetition of Three Words: Three (3) Temporal Orientation: Year: Correct (3) Temporal Orientation: Month: Accurate within 5 days(2) Temporal Orientation: Day: Correct (1) Recall : Wear to say "Sock": Yes, no cue required (2) Recall : Color: Yes, no cue required (2) Recall : Bed: Yes, no cue required (2) Memory/Recall Ability: Current season, That he or she is in a hsp/hsp unit, Room number, staff names Time Frame: Ten Days. FRANCINE DUEÑAS OT Jan 01, 2022 13:52
[2022-01-01 14:00] VITALS: BP 126/72
--- NOTE | 2022-01-01 15:37 | Therapy Team Discharge Summary ---
Therapy Discharge Summary Discharge Recommendations Date of Discharge Jan 01, 2022 at 13:10 Physical Therapy Patient came to rehab with debility. Upon evaluation patient performs rolling and supine <-> sit with independence, sit <-> stand and transfers with CGA, car transfer CGA, ambulate 150' with a rolling walker with CGA (including 50' with at least 2 turns of 90 degrees and 10' over an uneven surface), went up and down 4 steps using 2 handrails with CGA, and picked up an object from the floor using a mathematician research with CGA. Patient has been performing bed mobility and transfer training, balance and endurance training, functional strengthening,stair training, gait training, and education. Patient has made fair progress but has only met his alf goals for bed mobility and transfers. Now, patient performs rolling and supine <-> sit with independence, sit <-> stand and transfers with independence, car transfer setup, ambulates 500' with a rolling walker with setup (including 50' with at least 2 turns of 90 degrees and 10' over an uneven surface), can go up and down 8 steps using 1 handrails with CGA/SBA, and can pickling solution maker object from the floor with setup. Patient is being discharged from this facility today and will be discharged from PT at this time. Roll Left to Right (QC): 6 Sit to Lying (QC): 6 Lying to Sitting/Side of Bed(Q: 6 Sit to Stand (QC): 6 Chair/Rqv-fj-Lncso Xfer(QC): 6 Toilet Transfer (QC): 4 Car Transfer (QC): 5 Does the Patient Walk: Yes Mode of Locomotion: Walk Anticipated Mode of Locomotion: Walk Walk 10 feet (QC): 5 Walk 50 ft with 2 Turns(QC): 5 Walk 150 ft (QC): 5 Walking 10ft on uneven surface: 5 Distance: 150'x2, 120'x3 Gait Assistive Device: FWW Does the Pt Use a Wheelchair: No Wheel 50 ft with 2 turns (QC): 4 Wheel 150 ft (QC): 4 Type of Wheelchair: Manual #of Steps: 8 1 Step (curb) (QC): 5 4 Steps (QC): 4 12 Steps (QC): 88 Balance Sitting Static: Normal Balance Sitting Dynamic: Normal Balance-Standing Static: Fair Picking up an Object (QC): 5 Occupational Therapy Decreased Activ Tolerance, Decreased UE Strength Eating (QC): 88 (PEG tube) Oral Hygiene (QC): 6 (Per clinical judgment, pt would be independent with task, but refuses to complete.) Shower/Bathe Self (QC): 5 Upper Body Dressing (QC): 5 Lower Body Dressing (QC): 3 (Min A doffing pants, pt able to don with set up.) On/Off Footwear (QC): 6 Toileting Hygiene (QC): 3 (Min A with hygiene for thoroughness, pt appears self limiting with task.) PT Mower Mechanic Goals Mcc Goals PT Mcc Goals Time Frame: Jan 08, 2022 Roll Left to Right (QC): 6 Sit to Lying (QC): 6 Lying-Sitting on Side/Bed(QC): 6 Sit to Stand (QC): 6 Chair/Cxk-qh-Stsmi Xfer(QC): 6 Car Transfer (QC): 6 Does the Patient Walk: Yes Walk 10 feet (QC): 6 Walk 10ft-Uneven Surface(QC): 6 Walk 50ft with 2 Turns (QC): 6 Walk 150 ft (QC): 6 Wheel 50 feet with 2 turns (QC: 9 1 Step (curb) (QC): 6 4 Steps (QC): 6 12 Steps (QC): 6 Picking up an Object (QC): 6 OT Mower Mechanic Goals Mower Mechanic Goals Time Frame: Dec 31, 2021 Eating (QC): 88 Oral Hygiene (QC): 5 (met) Shower/Bathe Self (QC): 5 (met) Upper Body Dressing (QC): 6 (not met) Lower Body Dressing (QC): 6 (not met) On/Off Footwear (QC): 6 (met) Toileting Hygiene (QC): 6 (not met) Toilet/Commode Transfer (QC): 6 1=Demonstrate adherence to instructed precautions during ADL tasks. 2=Patient will verbalize/demonstrate understanding of assistive devices/modifications for ADL. 3=Patient will improve strength/tolerance for activity to enable patient to perform ADL's. Speech Mower Mechanic Goals Mcc Goals 1. The patient will demonstrate improved cognitive linguistic function for safe discharge to the least restrictive environment. 2. The patient will tolerate the least restrictive diet consistency without s/s of suspected aspiration. Expression of Ideas/Wants: 4 Understanding Verbal Content: 4 Brief Interview-Mental Status: Yes Repetition of Three Words: Three (3) Temporal Orientation: Year: Correct (3) Temporal Orientation: Month: Accurate within 5 days(2) Temporal Orientation: Day: Correct (1) Recall : Wear to say "Sock": Yes, no cue required (2) Recall : Color: Yes, no cue required (2) Recall : Bed: Yes, no cue required (2) Memory/Recall Ability: Current season, That he or she is in a hsp/hsp unit, R oom number, staff names Time Frame: Ten Days. GORAN DE ANDA PT Jan 01, 2022 15:37
== END 2022-01-01 13:10 | disposition home health service (06) | DRG 948 ==
PROVIDERS: ADMIT Internal Medicine; ATTEND Internal Medicine
DX: R53.81 Other malaise (principal); C15.9 Malignant neoplasm of esophagus, unspecified; E46 Unspecified protein-calorie malnutrition; E87.1 Hypo-osmolality and hyponatremia; C78.7 Secondary malignant neoplasm of liver and intrahepatic bile duct; C77.1 Secondary and unspecified malignant neoplasm of intrathoracic lymph nodes; C77.2 Secondary and unspecified malignant neoplasm of intra-abdominal lymph nodes; R18.8 Other ascites; R13.10 Dysphagia, unspecified; K59.00 Constipation, unspecified; E78.00 Pure hypercholesterolemia, unspecified; G89.29 Other chronic pain; R63.4 Abnormal weight loss; Z93.1 Gastrostomy status; Z68.20 Body mass index [BMI] 20.0-20.9, adult
CPT/HCPCS: 36415; 74018; 74022; 74176; 80048; 80053; 85025